=== PATIENT | female | born 1955 | race Caucasian/White ===

== ENCOUNTER 2025-06-18 15:12 | Inpatient (IN) | payer MEDICARE, MEDICAID, SELFPAY ==
[2025-06-18] VITALS (7 sets, daily range): BP systolic 163–188; BP diastolic 69–93; PULSE 87–99; RESP 12–20; TEMP 36.8–38.2; O2SAT 93–100; BMI 29.7
--- NOTE | 2025-06-18 15:22 | EKG_ITS ---
[facility] Test Date: 2025-06-18 Pat Name: KIMBERLEY FULLER Department: Room: - Gender: Female [employer]: : 1955 Requested By: Дмитрий Mejia Order Number: [id number] Reading MD: Дмитрий Mejia Measurements Intervals [place] Rate: 103 P: 49 [place]: 205 QRS: -41 QRSD: 82 T: 56 QT: 356 QTc: 467 Interpretive Statements SINUS TACHYCARDIA LOW QRS VOLTAGE IN PRECORDIAL LEADS [QRS DEFLECTION < 1.0 mV IN CHEST LEADS] POSSIBLE ANTERIOR MYOCARDIAL INFARCTION , PROBABLY OLD [30 ms Q WAVE IN V3/V4, OR R < 0.2 mV IN V4] INFERIOR MYOCARDIAL INFARCTION , PROBABLY OLD [40+ ms Q WAVE AND/OR ST/T ABNORMALITY IN II/aVF] No previous ECG available for comparison /store/S0/[id number].pdf
--- NOTE | 2025-06-18 15:22 | XR_ITS ---
Examination: AP chest single view Technique : AP portable semiupright chest single view Date and time: October 18, 2024, 1558 hrs. Indications: Congestion shortness of breath today. Findings: Early bibasilar pneumonia. Mild prominence left ventricle. Intact osseous structures Impression: Early bibasilar pneumonia.
--- NOTE | 2025-06-18 15:30 | PD.EDADULT ---
ED General RME/HPI General Chief complaint: General Adult/Misc Complain Stated complaint: HIGH BLOOD SUGAR Time Seen by Provider: 06/18/25 15:25 Arrival date/time: 06/18/25 15:12 Mode of arrival: EMS RME / HPI RME / HPI narrative: Mr. 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 Hebert) status post amputation, history of CVA on aspirin and Plavix, chronic constipation, seizures, gout, hyperlipidemia, depression/anxiety and hypertension who presented to [facility] emergency department with a chief complaint of not feeling like herself. Patient reports that she has a feeling that her blood sugar is high and she has been feeling off, patient reports that she has not taken her insulin since yesterday, she was unable to procure insulin from pharmacy. Patient's blood glucose level at bedside in triage area 600 critically high. Patient also was admitted to community also recently was positive for RSV, denies any admissions for DKA in the past. 1750: Patient had seizure episode, witnessed at bedside. Patient given diazepam 10 mg IV x 1 and was given loading dose Keppra. Will monitor postictally. Related Data Home Medications ?Medication ?Instructions ?Recorded ?Confirmed allopurinol 100 mg tablet 100 mg PO TID 06/18/25 06/18/25 aspirin 81 mg capsule 81 mg PO QDAY 06/18/25 06/18/25 calcitriol 0.25 mcg capsule 0.25 mcg PO QDAY 06/18/25 06/18/25 clopidogrel 75 mg tablet (Plavix) 75 mg PO QDAY 06/18/25 06/18/25 empagliflozin 10 mg tablet 10 mg PO QDAY 06/18/25 06/18/25 (Jardiance) ferrous sulfate 325 mg (65 mg 325 mg PO BID 06/18/25 06/18/25 iron) tablet (Feosol) insulin degludec 100 unit/mL (3 26 unit subcut QDAY 06/18/25 06/18/25 mL) subcutaneous pen (Tresiba FlexTouch U-100 insulin) levetiracetam 500 mg tablet 1,000 mg PO BID 06/18/25 06/18/25 (Keppra) levothyroxine 25 mcg capsule 25 mcg PO QDAY 06/18/25 06/18/25 linaclotide 145 mcg capsule 145 mcg PO QAM 06/18/25 06/18/25 linagliptin 5 mg tablet (Tradjenta) 5 mg PO QDAY 06/18/25 06/18/25 losartan 50 mg tablet 50 mg PO QDAY 06/18/25 06/18/25 omega-3 fatty acids 600 mg PO QDAY 06/18/25 06/18/25 pantoprazole 40 mg tablet,delayed 40 mg PO QDAY 06/18/25 06/18/25 release pioglitazone 30 mg tablet 30 mg PO QDAY 06/18/25 06/18/25 sertraline 100 mg tablet 150 mg PO Q24H 06/18/25 06/18/25 trazodone 100 mg tablet 100 mg PO HS 06/18/25 06/18/25 Allergies Allergy/AdvReac Type Severity Reaction Status Date / Time No Known Allergies Allergy Verified 06/18/25 15:27 Review of Systems Review of Systems Narrative Review of Systems: ROS: -CONSTITUTIONAL: Denies weight loss, fever and chills. -HEENT: Denies acute changes in vision and hearing. 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 -RESPIRATORY: Denies SOB and positive for cough. -CV: Denies palpitations and Chest Pain. -GI: Denies abdominal pain, nausea, vomiting,constipation and diarrhea. -: Denies dysuria and urinary frequency. -MSK: Denies myalgia and joint pain. -SKIN: Denies rash and pruritus. -NEUROLOGICAL: Denies headache and syncope. -PSYCHIATRIC: Denies recent changes in mood. Denies anxiety and depression. 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 Hebert) status post amputation, history of CVA on aspirin and Plavix, chronic constipation, seizures, gout, hyperlipidemia, depression/anxiety and hypertension PSHx: Left BKA, hysterectomy, cholecystectomy, appendectomy Allergies: No known allergies Social history: -Smoking: Denies -Alcohol Use: Denies Family History: No pertinent family history ED Exam Narrative Physical exam: Physical Exam General: Awake and in no acute distress. Conversational and non-toxic appearing. HEENT: Normocephalic, atraumatic, mucous membranes moist. Heart: Sinus tachycardia, no murmurs. Lungs: Clear to auscultation with no wheezing or crackles. Abdomen: Soft, nondistended, nontender, positive bowel sounds. ?No guarding or rebound tenderness. Neurologic: Alert and oriented x3, no gross neurological deficit, and patient able to move all 4 extremities. Extremities: No edema. Left BKA noted. Skin: No rash or ecchymoses. Course Quality Measures none Orders Category Date Time Status Bedside Blood Glucose NOW Care 06/18/25 15:34 Active Bedside Blood Glucose Q6HR Care 06/18/25 18:16 Active Bedside COVID-19 Antigen Test NOW Care 06/18/25 16:52 Active Bedside Influenza A&B Antigen Test NOW Care 06/18/25 16:52 Active Envelope Sealer Q4H START 00 Care 06/18/25 15:27 Active EKG (ED ONLY) *Do not use* NOW Care 06/18/25 15:36 Completed Insert IV STAT Care 06/18/25 15:26 Active Intake and Output Routine Care 06/18/25 15:26 Ordered CXRP [XR chest 1V portable] Stat Exams 06/18/25 15:22 Completed EKG (ED Only) Stat Exams 06/18/25 15:36 Ordered A1C [Glycohemoglobin w (eAG)] Stat Lab 06/18/25 15:30 Completed Amylase Stat Lab 06/18/25 15:30 Results BNP [B-Type Natriuretic Peptide] Stat Lab 06/18/25 15:30 Completed Beta Hydroxybutyrate Stat Lab 06/18/25 15:30 Results Blood Culture (Lab) Stat Lab 06/18/25 15:35 Received CBC Stat Lab 06/18/25 15:30 Completed CMP [Comprehensive Metabolic Panel] Stat Lab 06/18/25 15:30 Results Drug Screen,Urine Stat Lab 06/18/25 15:25 Ordered INR [Prothrombin Time with INR] Stat Lab 06/18/25 15:30 Completed Lactate (Lactic Acid) Stat Lab 06/18/25 15:30 Results Lipase Stat Lab 06/18/25 15:30 Results Lipid Panel Stat Lab 06/18/25 15:30 Completed Magnesium Stat Lab 06/18/25 15:30 Completed PTT [Partial Thromboplastin Time] Stat Lab 06/18/25 15:30 Completed Phosphorous Stat Lab 06/18/25 15:30 Completed Procalcitonin Stat Lab 06/18/25 15:30 Completed Troponin I Stat Lab 06/18/25 15:30 Results Urinalysis, C/S if Indicated Stat Lab 06/18/25 15:24 Ordered VBG [Venous Blood Gas] Stat Lab 06/18/25 15:30 Completed Dextrose 50% Syr [D50w Syringe Abboject] Med 06/18/25 18:16 Active 25 ml IV Q15MIN PRN Dextrose 50% Syr [D50w Syringe Abboject] Med 06/18/25 18:16 Active 50 ml IV Q15MIN PRN Diazepam Inj [Valium Inj] Med 06/18/25 17:50 Discontinued 10 mg .ROUTE .STK-MED ONE Diazepam Inj [Valium Inj] Med 06/18/25 17:51 Discontinued 10 mg IVP X1 ONE Glucagon Inj Med 06/18/25 18:16 Active 1 mg IM Q15MIN PRN INSULIN LISPRO (AdmeLOG) [HumaLOG] Med 06/19/25 07:30 Active See Protocol SC AC Pantoprazole Inj [Protonix Inj] Med 06/19/25 09:00 Active 40 mg IVP QDAY Ringers Lactated 1000 ml [Lactated Ringers] 1,000 ml Med 06/18/25 15:28 Discontinued IV 999 mls/hr levETIRAcetam INJ [Keppra Inj] Med 06/18/25 16:05 Active 1,000 mg IVP Q12HR EKG (RT) Stat RT 06/18/25 15:22 Draft Vital Signs Vital signs: Vital Signs Temperature 98.6 F 06/18/25 15:13 Pulse Rate 95 06/18/25 15:13 Respiratory Rate 18 06/18/25 15:13 Blood Pressure 163/75 H 06/18/25 15:13 Pulse Oximetry (%) 96 06/18/25 15:13 Oxygen Delivery Method Room Air 06/18/25 15:13 Discharge Plan Prescriptions/Referrals Prescriptions/Med Rec: No Action levetiracetam [Keppra] 500 mg tablet 1,000 mg PO BID trazodone 100 mg tablet 100 mg PO HS insulin degludec [Tresiba FlexTouch U-100] 100 unit/mL (3 mL) insulin pen 26 unit subcut QDAY Tradjenta 5 mg tablet 5 mg PO QDAY Patient Comments: TAKE 1 TABLET BY MOUTH EVERY DAY aspirin 81 mg capsule 81 mg PO QDAY clopidogrel [Plavix] 75 mg tablet 75 mg PO QDAY linaclotide 145 mcg capsule 145 mcg PO QAM sertraline 100 mg tablet 150 mg PO Q24H Patient Comments: TAKE 2 TABLETS BY MOUTH EVERY DAY pantoprazole 40 mg tablet,delayed release (DR/EC) 40 mg PO QDAY Patient Comments: TAKE 1 TABLET BY MOUTH EVERY DAY calcitriol 0.25 mcg capsule 0.25 mcg PO QDAY Patient Comments: TAKE 1 CAPSULE BY MOUTH EVERY DAY ferrous sulfate [Feosol] 325 mg (65 mg iron) tablet 325 mg PO BID levothyroxine 25 mcg capsule 25 mcg PO QDAY allopurinol 100 mg tablet 100 mg PO TID losartan 50 mg tablet 50 mg PO QDAY omega-3 fatty acids Capsule 600 mg PO QDAY Jardiance 10 mg tablet 10 mg PO QDAY pioglitazone 30 mg tablet 30 mg PO QDAY Referrals: Courtney Leonardo, FURRIER APPRENTICE [Primary Care Provider] - In 1 week Problem List Clinical Impression: Seizure Patient/Caregiver Discharge Instructions Print Language: Scottish MD Attestation MD Attestation I, Dr. Mathur, have reviewed the history, exam, and assessment of the patient. I have evaluated the patient independently and agree with the plan of care documented by the resident Dr. Mejia. All diagnostic studies were reviewed and discussed. I confirm the diagnosis as documented by the resident. I was present during the Medical Decision Making for this patient. The patient?s plan of care was created between myself and the resident and consistent with our discussion of the patient?s case. MDM Narrative MDM hospital course: Patient presented with critically high blood glucose, complained of some dizziness and not feeling like herself. Patient just complains of difficulty ambulating, feeling dizzy, denies any vertigo. Fingerstick blood glucose 600 on presentation, beta hydroxybutyrate unremarkable, beta hydroxybutyrate 0.1, lactic acid elevated at 3.6, triglycerides elevated at 442 patient has moderate hypertriglyceridemia, not on statins at home. Patient will be started on fenofibrate and atorvastatin for management on discharge. Patient signed out to ED physician Dr. Ahmadi for continued ED of care. Clinical Information Provided by patient and EMS Medical Records Reviewed None EKG EKG Interpretation narrative: EKG shows sinus tachycardia, no acute ST-T changes Lab Interpretation Lab(s) interpretation(s): Labs significant for hemoglobin 11.8, lactic acid 3.6, hemoglobin A1c 11.9 triglycerides 442, cholesterol 270. Beta hydroxybutyrate 0.1 Imaging Provider imaging interpretation(s): chest x-ray shows no evidence of pneumonia Medication Administration(s) Medication Administration History Dextrose (Dextrose 50%-Water Inj 50 Ml Syringe) 25 ml IV Q15MIN PRN PRN Reason: BG 50-70 responsive npo pt Stop: 07/18/25 18:15 Dextrose (Dextrose 50%-Water Inj 50 Ml Syringe) 50 ml IV Q15MIN PRN PRN Reason: BG <50 OR BG <70 & pt unresponsive Stop: 07/18/25 18:15 Glucagon (Glucagon Inj 1 Mg Vial) 1 mg IM Q15MIN PRN PRN Reason: BG <70, and no IV access Insulin Human Lispro (Insulin Lispro (Admelog) 1 Unit/0.01 Ml Unit) 0 unit SC AC ERIAK; Protocol Stop: 07/19/25 07:29 Levetiracetam (Levetiracetam Inj 100 Mg/Ml Vial 5ml) 1,000 mg IVP Q12HR ERIKA Stop: 07/18/25 16:04 Last Admin: 06/18/25 17:53 Dose: 1,000 mg Documented By: FABY Pantoprazole Sodium (Pantoprazole Inj 40 Mg Vial) 40 mg IVP QDAY ERIKA Stop: 07/19/25 08:59 Discontinued Medications Diazepam (Diazepam Inj 5 Mg/Ml Vial 2 Ml) 10 mg IVP X1 ONE Stop: 06/18/25 17:52 Last Admin: 06/18/25 17:53 Dose: 10 mg Documented By: FABY Diazepam (Diazepam Inj 5 Mg/Ml Vial 2 Ml) Confirm Administered Dose 10 mg .ROUTE .STK-MED ONE Stop: 06/18/25 17:51 Last Admin: 06/18/25 17:54 Dose: Not Given Documented By: FABY Non-Admin Reason: Duplicate Medication on eMAR Lactated Ringer's (Lactated Ringers) 1,000 mls @ 999 mls/hr IV .Q1H1M ONE Stop: 06/18/25 16:28 Last Infusion: 06/18/25 17:54 Dose: Infused Documented By: Admin: 06/18/25 15:33 Dose: 999 mls/hr Documented By: DB As above Diagnosis Differential diagnosis: High blood glucose, DKA, HHS, seizure episode Differential dx and/or dx ruled out: Pending workup, signed out to ED physician Dr. Ahmadi Dispositon Disposition: other (Signed out to ED physician Dr. Ahmadi)
[2025-06-18] MEDS: RINGERS LACTATED 1000 ML 1,000 ML 999 ML IV (15:33)
[2025-06-18 16:06] LABS: Lactate (Lactic Acid) 3.6 mMol/L (0.4-2.0)
[2025-06-18 16:07] LABS: Base Excess, Venous -6 (-3-3); O2 Saturation, Venous 98 % (96-97); PCO2, Venous 32 mmHg (36-56); PO2, Venous 110 mmHg (15-58); pH, Venous 7.37 (7.33-7.66)
[2025-06-18 16:18] LABS: Basophils # (Auto) 0.0 Thou/mm3 (0.0-0.2); Basophils % (Auto) 0 % (0-2.5); Eosinophils # (Auto) 0.1 Thou/mm3 (0.0-0.5); Eosinophils % (Auto) 1 % (0-10); Hematocrit 34.9 % (36.0-46.0); Hemoglobin 11.8 g/dL (12.0-16.0); Immature Granulocytes Auto 0.04 Thou/mm3 (0.00-0.00); Lymphocytes # (Auto) 2.4 Thou/mm3 (1.0-4.8); Lymphocytes % (Auto) 26 % (10-50); Mean Corpuscular HGB Conc 33.8 g/dl (31.0-37.0); Mean Corpuscular Hemoglobin 30.3 pg (25.0-35.0); Mean Corpuscular Volume 90 fL (80-100); Monocytes # (Auto) 0.4 Thou/mm3 (0.0-0.8); Monocytes % (Auto) 5 % (0-12); Neutrophils # (Auto) 6.3 Thou/mm3 (1.8-7.7); Neutrophils % (Auto) 68 % (37-80); Nucleated Red Blood Cell # 0.00 Thou/mm3 (0.00-0.00); Nucleated Red Blood Cell % 0 /100 WBC (0); Platelet Count 281 Thou/mm3 (140-440); RDW Standard Deviation 43.6 fL (36.4-46.3); Red Blood Count 3.90 Miln/mm3 (4.00-5.20); White Blood Count 9.2 Thou/mm3 (3.6-11.0)
[2025-06-18 16:19] LABS: Beta Hydroxybutyrate 0.1 mmol/L (<0.6)
[2025-06-18 16:27] LABS: Glucose Estimated Average 295 mg/dL (80-131); Hemoglobin A1C 11.9 % Hgb (4.8-6.0)
[2025-06-18 16:30] LABS: INR 0.9 (0.9-1.3); Partial Thromboplastin Time 23.0 Seconds (22.0-36.0); Prothrombin Time 10.3 Seconds (9.0-12.2)
[2025-06-18 16:42] LABS: B-Type Natriuretic Peptide 58 pg/mL (0-100)
[2025-06-18 16:56] LABS: Cardiac Risk Estimate 5.7 RATIO (3.7-5.6); Cholesterol 275 mg/dL (132-200); HDL Cholesterol 48 mg/dL (40-60); Magnesium 1.7 mg/dL (1.6-2.6); Phosphorous 4.0 mg/dL (2.4-5.1); Procalcitonin 0.08 ng/ml (0.0-0.49); Triglycerides 442 mg/dL (30-150)
[2025-06-18] MEDS: DIAZEPAM INJ 5 MG/ML VIAL 2 ML 10 MG IVP (17:53)
[2025-06-18] MEDS: levETIRAcetam INJ 100 MG/ML VIAL 5ML 1000 MG IVP ×2 (17:53→21:35)
--- NOTE | 2025-06-18 18:23 | EDNOTE_ITS ---
Emergency Room Addendum <Alison Levy - Last Filed: 06/18/25 21:57> Addendum Narrative: 1800: Care assumed from Dr. Mathur (emergency physician). Past medical, surgical, social and family history reviewed. Vitals and home medications reviewed. Results and treatment plan discussed. I will assume the care of the patient at this time and will follow the patient, pending labs and final disposition. The following addendum documentation note is intended to reflect any pending information, findings, or radiology results not included in the patient?s initial chart by the previous shift scribe. RADIOLOGY Chest X-Ray: Findings: Early bibasilar pneumonia. Mild prominence left ventricle. Intact osseous structures Impression: Early bibasilar pneumonia. 2157: Hospitalist made aware of the patient?s HPI, PMHx, lab and/or radiology results. Treatment plan was discussed. Will admit for further evaluation and management. Accepts patient for admission. <Tom Moeller DO [place] - Last Filed: 06/18/25 22:01> Addendum Narrative: 1800: Care assumed from Dr. Mathur (emergency physician). Past medical, surgical, social and family history reviewed. Vitals and home medications reviewed. Results and treatment plan discussed. I will assume the care of the patient at this time and will follow the patient, pending labs and final disposition. The following addendum documentation note is intended to reflect any pending information, findings, or radiology results not included in the patient?s initial chart by the previous shift scribe. RADIOLOGY Chest X-Ray: Findings: Early bibasilar pneumonia. Mild prominence left ventricle. Intact osseous structures Impression: Early bibasilar pneumonia. 2157: Hospitalist made aware of the patient?s HPI, PMHx, lab and/or radiology results. Treatment plan was discussed. Will admit for further evaluation and management. Accepts patient for admission. I reevaluated the patient. Patient's lactic acid level is still elevated. Patient had a seizure here in the emergency room prior to being signed out to me. Patient required Valium 10 mg IV as well as Keppra 1000 mg IV. By chest x- ray she has got bilateral lower lobe pneumonia she has had a cough. O2 saturation is 94% on room air. Original lactic acid level was 3.6 and repeat was 2.6. Patient received Rocephin 1 g IV and azithromycin 500 mg p.o. Patient's blood sugar was greater than 600 upon presentation here in the emergency room. Patient was hydrated with a liter of lactated Ringer's and given 14 units of regular insulin IV. Patient is not diabetic ketoacidosis. Blood sugars are now in the 400s. Due to the fact that the patient has bilateral lower lobe pneumonia and is still slightly postictal from her seizure and is having trouble controlling her blood sugars possibly secondary to her infection, I did discuss this case with the hospitalist and the patient will require admission to the hospital for further treatment and evaluation for her seizure, poorly controlled diabetes mellitus, bilateral lower lobe pneumonia.
[2025-06-18] MEDS: INSULIN HUM REGULAR 1 UNIT/0.01 ML (PER UNIT) 14 UNIT IV (18:45)
[2025-06-18 19:02] LABS: Reflex Lactate? Y
[2025-06-18 19:03] LABS: Alanine Aminotransferase 12 U/L (10-49); Albumin, Serum 4.1 gm/dL (3.4-4.8); Albumin/Globulin Ratio 1.6 (1.2-2.2); Alkaline Phosphatase 136 U/L (46-116); Anion Gap 15 (7-16); Aspartate Amino Transferase 10 U/L (0-34); BUN/Creatinine Ratio 10 Ratio (12-20); Bilirubin,Total 0.3 mg/dL (0.3-1.2); Blood Urea Nitrogen 21 mg/dL (9-23); Calcium 9.6 mg/dL (8.3-10.6); Calcium (Corrected) 9.6 mg/dL (8.5-10.1); Carbon Dioxide 18.4 mMol/L (20.0-31.0); Chloride 94 mMol/L (98-107); Creatinine (Component) 2.1 mg/dL (0.6-1.3); Estimated Creatinine Clearance 30.4 mL/min (>60); Globulin 2.6 gm/dL (2.3-3.5); Potassium 4.2 mMol/L (3.4-5.1); Sodium 127 mMol/L (136-145); Total Protein 6.7 gm/dL (5.7-8.2); Troponin I < 0.020 ng/mL (0.0-0.045); eGFR 25 See Note
[2025-06-18 19:23] LABS: Glucose 398 mg/dL (74-106); Osmolality,Calculated 275 (275-295)
[2025-06-18 19:34] LABS: Lactic Acid, 3 HR 2.6 mMol/L (0.4-2.0)
[2025-06-18] MEDS: cefTRIAXone/D5w 1gm IV premix 1 GM/50 ML BAG IV (20:57)
[2025-06-18] MEDS: AZITHROMYCIN 250 MG TABLET 500 MG PO (20:57)
[2025-06-18 22:11] LABS: Lipase 60 U/L (12-53)
--- NOTE | 2025-06-18 22:41 | XR_ITS ---
Examination: CT brain head without contrast. 2-D sagittal coronal reconstructions Date and time of exam:June 18, 2025, 11:04 PM Indications: Altered mental status today CTDI: vol (mGy):50.9 DLP: (mGycm):1000 Technique: Multiple CT axial sections of the brain have been obtained, 5 mm slice thickness. Contrast has not been administered. 2-D sagittal, coronal reconstructions have been obtained Low dose protocols were performed. One or more of the following dose reduction techniques were used; automated exposure control, adjustment of the mA and/or KV according to patient size, use of iterative reconstruction technique. Findings: No significant ventricular enlargement. Encephalomalacia in the right temporal lobe Intra-axial or extra-axial hemorrhage density is not seen. No mass effect or midline shift Basal cisterns are not remarkable. Fourth ventricle is midline. Cranial vault intact. Impression: Negative for acute hemorrhage, mass effect or midline shift Advise clinical correlation follow-up accordingly
[2025-06-18 23:32] LABS: Collection Type, Urine Clean Catch
--- NOTE | 2025-06-18 23:43 | ESHP_ITS ---
Documentation for date of: 06/18/25 [facility] History of Present Illness History of present illness: This is a 70-year-old female with PMHx of IDDM type II, diabetic nephropathy, s/p left BKA, recent CVA 3 months ago on PLAVIX/ASPIRIN with residual bowel and bladder incontinence, seizure disorder post CVA on KEPPRA, hypothyroidism, chronic constipation, CKD 3A v 3B, HTN, HLD, gout, depression/anxiety disorder presenting to ED with confusion. In the ED, initially was being worked up for hyperglycemia with GLUCOSE 600 in triage. However she had a seizure lasting about 2 to 3 minutes. At the time of encounter, patient was postictal, history was limited. However, her sister at bedside assisted. Reportedly, she lives with her daughter at home, and this morning, her sister was driving her to the [employer] and had noticed Poornima was slightly confused, and not making sense, and just didn't look like herself. No immediately drove back home, she was able to walk from the car to the house unassisted. However, she continued to have confusion, and decided to come to the ED. She had a stroke 3 months ago at [facility], currently on PLAVIX and ASPIRIN. Since she had bowel/stool incontinent and chronic constipation. Additionally, she was found to have seizures during her admission and was discharged on KEPPRA which she has been taking daily. No reported seizures since her last hospital discharge. Additionally, she is on INSULIN regimen for IDDM 2, however she had ran out of her INSULIN supply, her last dose was 2 days ago. Denies history of DKA. Never been hospitalized for hypoglycemia to her knowledge. She had RSV about a month ago, and had sustained a chronic dry cough since. She has a history of hypertension, previously was taking multiple medication. However, her PCP recently discontinued her ANTIHYPERTENSIVE as BP has been overall running low. Denies headache, fall or head trauma, fever, chills, visual or auditory disturbances, SOB, productive cough, chest pain, abdominal pain, nausea or vomiting, hematuria or dysuria. Past Medical History: * As above. Past Surgical History: * Left BKA, cholecystectomy, X1. Medications: * INSULIN DEGLUDEC 26 unit q. day, JARDIANCE 10 mg q. day, PIOGLITAZONE 30 mg q. day, TRADJENTA 5 mg q. day, CLOPIDOGREL 75 mg, KEPPRA 500 mg daily, LEVOTHYROXINE 25 mg daily, LINZESS 145 mcg daily, PANTOPRAZOLE 40 mg daily, SERTRALINE 100 mg daily, TRAZODONE 100 mg daily, ALLOPURINOL 300 mg daily. Allergies: * No known allergies. Family History: * History of heart disease in both parents. Social History: * Previously , currently , has 3 children, lives with her sister at home. * Was born in [place], lived in [place] for 30 years. * Currently retired, worked as a schoolteacher. * Denies alcohol, drug or tobacco use. ED Course: * Afebrile, BP 163/75, HR 95, satting well on room air. * Hemoglobin 11.8, WBC 9.2, PLT 281. Normal coag panel. * CHEM panel significant for sodium 127, CO2 18.4, GLUCOSE 398, A1c 11.9, BHB 0.1, creatinine 2.1, GFR 25, BUN 21, lactic acid 3.6 > 2.6, ALP 136, TG 442, cholesterol 275, HDL 48, lipase 60, ambulates pending. Troponin and BNP WNL. * ABG showed pH 7.37, pCO2 32. * UA showed 6 WBC, 1+ bacteria, 1+ blood, GLUCOSE 4+, protein, 2+, negative ketones. * U tox was negative. * CXR showed early bibasilar pneumonia. * EKG shows sinus tachycardia without acute ST changes. QTC 467. * Head CT was negative for acute hemorrhage, mass effect or midline shift. There is right temporal encephalomalacia, possibly from previous stroke. Reason for admission: Seizures, postictal, hypoglycemia, likely ALLYN on CKD. Exam Vital Signs Temp Pulse Resp BP Pulse Ox O2 Del Method O2 Flow Rate 100.7 F H 97 17 163/77 H 98 Room Air 6 06/18/25 21:49 06/18/25 21:49 06/18/25 21:49 06/18/25 21:49 06/18/25 21:49 06/18/25 21:49 06/18/25 19:16 Narrative Exam GENERAL * Well-nourished, slightly confused, answering otherwise appropriately, NAD. HEENT * NCAT.?AMY. Oral mucosa is moist. Patent Nares NECK * Supple, nontender, no JVD. CHEST * RRR, no m/g/r * CTAB, no w/r/r, symmetrical expansion. ABDOMEN * Soft, flat, nontender. No guarding/rebound tenderness/masses. * Bowel sounds presents EXTREMITIES * No edema/cyanosis.? * Left BKA noted. SKIN * Warm and dry, no jaundice/rashes. NEUROMUSCULAR * Moves all 4 extremities well, with full ROM and good CSM. * PATTEN x4, CN II-XII grossly intact. * No focal neurologic deficits. PSYCHIATRY * Normal mood and affect, cooperative, no SI or HI or hallucinations. Results: Labs 06/18/25 15:30 06/19/25 00:48 Labs: Short CBC 06/18/25 Range/Units 15:30 WBC 9.2 (3.6-11.0) Thou/mm3 Hgb 11.8 L (12.0-16.0) g/dL Hct 34.9 L (36.0-46.0) % Plt Count 281 (140-440) Thou/mm3 BMP 06/18/25 15:30 Sodium 127 L Potassium 4.2 Chloride 94 L Carbon Dioxide 18.4 L BUN 21 Creatinine 2.1 H Glucose 398 H Calcium 9.6 Cardiac Enzymes 06/18/25 Range/Units 15:30 Troponin I < 0.020 (0.0-0.045) ng/mL Liver Function 06/18/25 Range/Units 15:30 Total Bilirubin 0.3 (0.3-1.2) mg/dL AST 10 (0-34) U/L ALT 12 (10-49) U/L Alkaline Phosphatase 136 H (46-116) U/L Albumin 4.1 (3.4-4.8) gm/dL ABG Interpretation ABG results: 06/18/25 15:30 VBG pH 7.37 VBG pCO2 32 L VBG pO2 110 H VBG Base Excess -6 L Quality Measures Quality Measures none Advance care planning discussed with:: patient Medications Home Medications and Allergies Home Medications ?Medication ?Instructions ?Recorded ?Confirmed ?Type allopurinol 100 mg tablet 100 mg PO TID 06/18/2506/18 History aspirin 81 mg capsule 81 mg PO QDAY 06/18/2506/18 History calcitriol 0.25 mcg capsule 0.25 mcg PO QDAY 06/18/25 06/18/25 History clopidogrel 75 mg tablet (Plavix) 75 mg PO QDAY 06/18/25 History empagliflozin 10 mg tablet 10 mg PO QDAY 06/18/2505/05 History (Jardiance) ferrous sulfate 325 mg (65 mg 325 mg PO BID 06/18/25 0 06/18/25 History iron) tablet (Feosol) insulin degludec 100 unit/mL (3 26 unit subcut QDAY 06/18/25 History mL) subcutaneous pen (Tresiba FlexTouch U-100 insulin) levetiracetam 500 mg tablet 1,000 mg PO BID 06/18/25 0 06/18/25 History (Keppra) levothyroxine 25 mcg capsule 25 mcg PO QDAY 06/18/25 0 06/18/25 History linaclotide 145 mcg capsule 145 mcg PO QAM 06/18/25 History linagliptin 5 mg tablet (Tradjenta) 5 mg PO QDAY 06/1806/18/25 History losartan 50 mg tablet 50 mg PO QDAY 06/18/2506/18 History omega-3 fatty acids 600 mg PO QDAY 06/18/2505/05 History pantoprazole 40 mg tablet,delayed 40 mg PO QDAY 06/18/25 History release pioglitazone 30 mg tablet 30 mg PO QDAY 06/18/2506/18 History sertraline 100 mg tablet 150 mg PO Q24H 06/18/2505/05 History trazodone 100 mg tablet 100 mg PO HS 06/18/25 History Allergies Allergy/AdvReac Type Severity Reaction Status Date / Time No Known Allergies Allergy Verified 06/18/25 15:27 Visit Medications Acetaminophen (Acetaminophen 325 Mg Tablet) 650 mg PO Q6H PRN PRN Reason: PAIN SCALE 1-3 (mild Stop: 07/18/25 23:28 Acetaminophen (Acetaminophen 325 Mg Tablet) 650 mg PO Q6H PRN PRN Reason: Fever >100.4 Stop: 07/18/25 23:28 Hydrocodone Bitart/Acetaminophen (Hydrocodone/Apap 10/325 Tab) 1 tab PO Q4HR PRN PRN Reason: PAIN SCALE 7-10 (Severe Stop: 06/23/25 23:28 Aspirin (Aspirin Ec 81 Mg Tabec) 81 mg PO X1 ONE Stop: 06/18/25 23:35 Atorvastatin Calcium (Atorvastatin Calcium 20 Mg Tablet) 80 mg PO HS ERIKA Stop: 07/19/25 20:59 Clopidogrel Bisulfate (Clopidogrel Bisulfate 75 Mg Tablet) 75 mg PO QDAY ERIKA Stop: 07/19/25 08:59 Dextrose (Dextrose 50%-Water Inj 50 Ml Syringe) 25 ml IV Q15MIN PRN PRN Reason: BG 50-70 responsive npo pt Stop: 07/18/25 18:15 Dextrose (Dextrose 50%-Water Inj 50 Ml Syringe) 50 ml IV Q15MIN PRN PRN Reason: BG <50 OR BG <70 & pt unresponsive Stop: 07/18/25 18:15 Dextrose (Dextrose 50%-Water Inj 50 Ml Syringe) 25 ml IV Q15MIN PRN PRN Reason: BG 50-70 responsive npo pt Stop: 07/18/25 23:28 Dextrose (Dextrose 50%-Water Inj 50 Ml Syringe) 50 ml IV Q15MIN PRN PRN Reason: BG <50 OR BG <70 & pt unresponsive Stop: 07/18/25 23:28 Glucagon (Glucagon Inj 1 Mg Vial) 1 mg IM Q15MIN PRN PRN Reason: BG <70, and no IV access Glucagon (Glucagon Inj 1 Mg Vial) 1 mg IM Q15MIN PRN PRN Reason: BG <70, and no IV access Heparin Sodium (Porcine) (Heparin Sod Inj 5000 Unit/Ml Vial) 5,000 unit SC BID ERIKA Stop: 07/03/25 08:59 Insulin Degludec (Insulin Degludec 5 Unit/0.05 Ml (Per 5 Units)) 26 unit SC HS [facility] Stop: 07/19/25 20:59 Insulin Human Lispro (Insulin Lispro (Admelog) 1 Unit/0.01 Ml Unit) 0 unit SC AC ERIKA; Protocol Stop: 07/19/25 07:29 Insulin Human Lispro (Insulin Lispro (Admelog) 1 Unit/0.01 Ml Unit) 0 unit SC ACHS [facility]; Protocol Stop: 07/19/25 07:29 Insulin Human Regular (Insulin Hum Regular 1 Unit/0.01 Ml (Per Unit)) 15 unit SC X1 ONE Stop: 06/18/25 23:35 Levetiracetam (Levetiracetam Inj 100 Mg/Ml Vial 5ml) 1,000 mg IVP Q12HR ERIKA Stop: 07/18/25 16:04 Last Admin: 06/18/25 21:35 Dose: 1,000 mg Levetiracetam (Levetiracetam 250 Mg Tablet) 1,000 mg PO BID ERIKA Stop: 07/19/25 08:59 Losartan Potassium (Losartan Potassium 25 Mg Tablet) 50 mg PO QDAY [facility] Stop: 07/19/25 08:59 Non-Formulary Medication (Levothyroxine) 25 mcg PO QDAY [facility] Stop: 07/19/25 08:59 Non-Formulary Medication (Linaclotide) 145 mcg PO QAM [facility] Stop: 07/19/25 08:59 Oxycodone/Acetaminophen (Oxycodone/Apap 5/325 Tablet) 1 tab PO Q6H PRN PRN Reason: PAIN SCALE 4-6 (Moderate Stop: 06/23/25 23:28 Pantoprazole Sodium (Pantoprazole Inj 40 Mg Vial) 40 mg IVP QDAY [facility] Stop: 07/19/25 08:59 Pantoprazole Sodium (Pantoprazole Inj 40 Mg Vial) 40 mg IVP QDAY [facility] Stop: 07/19/25 08:59 Discontinued Medications Azithromycin (Azithromycin 250 Mg Tablet) 500 mg PO X1 ONE Stop: 06/18/25 20:18 Last Admin: 06/18/25 20:57 Dose: 500 mg Diazepam (Diazepam Inj 5 Mg/Ml Vial 2 Ml) 10 mg IVP X1 ONE Stop: 06/18/25 17:52 Last Admin: 06/18/25 17:53 Dose: 10 mg Lactated Ringer's (Lactated Ringers) 1,000 mls @ 999 mls/hr IV .Q1H1M ONE Stop: 06/18/25 16:28 Last Infusion: 06/18/25 17:54 Dose: Infused Ceftriaxone Sodium/Dextrose (Rocephin/D5w 1gm Iv Premix) 1 gm in 50 mls @ 100 mls/hr IV X1 ONE Stop: 06/18/25 20:46 Last Admin: 06/18/25 20:57 Dose: 100 mls/hr Insulin Human Regular (Insulin Hum Regular 1 Unit/0.01 Ml (Per Unit)) 14 unit IV X1 ONE Stop: 06/18/25 18:32 Last Admin: 06/18/25 18:45 Dose: 14 unit Assessment & Plan Plan This is a 70-year-old female with PMHx of IDDM type II, s/p left BKA, recent CVA 3 months ago on PLAVIX/ASPIRIN with residual bowel and bladder incontinence, seizure disorder post CVA on KEPPRA, hypothyroidism, chronic constipation, CKD 3A v 3B, HTN, HLD, gout, depression/anxiety admitted for acute encephalopathy in settings of seizure and mild hyperglycemia. Acute encephalopathy Seizure, postictal Recent CVA 3 months ago Known history of seizure on KEPPRA, secondary to a CVA 3 months ago. Presents with acute altered mental status that occurred this morning, reportedly has confusion. She was hyperglycemic on admission with GLUCOSE 600. Likely acute encephalopathy in settings of seizure as a result of hypoglycemia. She had a witnessed seizure lasting 2 to 3 minutes while in the ED. Low suspicion for stroke, no focal neurological deficits on exam Head CT was negative for acute pathology. Given KEPPRA 1000 mg loading dose in the ED. ? Continue home KEPPRA 1000 mg BID ? Continue PLAVIX 75 mg daily ? Continue ASPIRIN 81 mg daily ? Pending creatinine kinase ? Seizure precaution ? Aspiration precaution ? Physical therapy ? Glycemic control as below Hyperglycemia IDDM type II While in triage, GLUCOSE 600. A1c 11.9. She was given REGULAR INSULIN 14 units IV, GLUCOSE improved to 376. Low suspicion for DKA, gap is 15, bicarb slightly low at 18.4 likely from lactic acidosis, pH 7.37. Given total 2L IVFs. ? Given REGULAR INSULIN 15 units x 1 ? Started DEGLUDEC 26 unit q. day (home dose) ? Started NS maintenance at 100 cc/h (LR unavailable) ? INSULIN sliding scale ? Accu-Cheks q.3h ? Repeat BMP, replete electrolyte as needed (potassium 40 mg X1 given) ALLYN on CKD stage III She has history of CKD stage III, likely diabetic nephropathy. She sees it auditor is Dr. Hebret in [place], previously stated that she may need hemodialysis in future as kidney function is declining. Admission CR 2.1, GFR 25, BUN 21. No baseline renal function on board. ? Renally dose meds, avoid overdiuresis and NEPHROTOXINS ? Daily CMP Mild Hyponatemia Sodium 127. Serum osm normal suggests pseudohyponatremia 2/2 hyper-TG. Other potential causes include hyperglycemia or CKD. ? Continue to monitor Lactic acidosis (resolving) Lactic acid 3.6 > 2.6 likely 2/2 dehydration. Afebrile, no leukocytosis, low suspicion for active infection. ? Continue IVF's as above HTN HLD Hypothyroidism She has previous history of hypertension, however her ANTIHYPERTENSIVE were discontinued as recently as her BP has been on the lower side. On admission BP 163/77, may be reactive. Hypertriglyceridemia likely 2/2 hyperglycemia. ? LABETALOL PRN on board ? Continue home ATORVASTATIN 80 mg daily ? Continue home LEVOTHYROXINE 25 mg daily ? Pending TSH/free T4 Elevated lipase enzyme Lipase 60, and triglyceride 400s may suggest acute pancreatitis, however she is asymptomatic without abdominal pain at this point. ? Pending ambulates ? Continue IVF as above ? May need to increase fluid rate if acute pancreatitis suspected Anxiety and depression ? Continue home SERTRALINE 150 mg q. day ? Holding home TRAZODONE 100 mg HS in settings of acute encephalopathy Bowel/urinary incontinence Chronic constipation ? Continue home LINZESS 145 mcg daily Gout No signs of gout attack. ? Holding ALLOPURINOL in settings of suspected ALLYN Low suspicion for pneumonia CXR showed possible early pneumonia, however she is asymptomatic. She reports chronic dry cough, residual post RSV. Afebrile and no leukocytosis. Received a dose of CEFTRIAXONE and AZITHROMYCIN while in ED. ? Continue to monitor ? Consider ANTIBIOTICS if symptoms persist or worsen Case was discussed with attending physician, Dr. Davila. Viet Sosa, DO PGY II This document was transcribed using voice recognition technology. Minor inaccuracies may be present. Attending Provider Attestation/Addendum After examination of the patient and review of the clinical data I feel that this patient needs admission to the hospital for further treatment/evaluation. Plan of care discussed with patient and her sister at bedside, they are in agreement. I Damaris Davila MD, attest that I was physically present for alvarado portions of evaluation, and examined patient, labs and imagings and plan of care were discussed with IM residents team, and I agree with the findings and plans documented above.
[2025-06-18 23:46] LABS: Amphetamine/Methamp Scrn,U Negative (Negative); Barbiturate Screen,Urine Negative (Negative); Benzodiazepines Screen,Urine Negative (Negative); Benzoylecgonine Screen, Ur Negative (Negative); Fentanyl Screen,Urine Negative (Negative); Opiate Screen,Urine Negative (Negative); THC Screen,Urine Negative (Negative)
[2025-06-18 23:52] LABS: Bacteria,Urine 1+; Bilirubin,Urine Negative (Negative); Blood,Urine 1+ (Negative); Clarity,Urine Clear (Clear/Hazy); Color,Urine Lt-Yellow (Lt Yel-Yel); Culture Indicated,Urine Yes; Glucose, Urine 4+ (Negative); Ketones,Urine Negative (Negative); Leukocyte Esterase,Urine Negative (Negative); Nitrite,Urine Negative (Negative); PH,Urine 5.5 (5.0-7.0); Protein,Urine 2+ (Neg - Trace); RBC,Urine 1 /hpf (0-3); Specific Gravity,Urine 1.021 (1.001-1.035); Squamous Epithelial Cell,Urine 2 /hpf (0-5); Urobilinogen,Urine Negative mg/dL (0.0-1.0); WBC,Urine 6 /hpf (0-5)
[2025-06-18] MEDS: ACETAMINOPHEN 325 MG TABLET 650 MG PO (23:59)
[2025-06-18] MEDS: ASPIRIN EC 81 MG TABEC PO (23:59)
[2025-06-18] MEDS: INSULIN HUM REGULAR 1 UNIT/0.01 ML (PER UNIT) 15 UNIT SC (23:59)
[2025-06-19 01:17] LABS: Anion Gap 13 (7-16); BUN/Creatinine Ratio 14 Ratio (12-20); Blood Urea Nitrogen 22 mg/dL (9-23); Calcium 9.4 mg/dL (8.3-10.6); Carbon Dioxide 21.4 mMol/L (20.0-31.0); Chloride 100 mMol/L (98-107); Creatine Kinase 67 U/L (34-171); Creatinine (Component) 1.6 mg/dL (0.6-1.3); Estimated Creatinine Clearance 39.9 mL/min (>60); Glucose 361 mg/dL (74-106); Osmolality,Calculated 286 (275-295); Potassium 4.1 mMol/L (3.4-5.1); Sodium 134 mMol/L (136-145); eGFR 35 See Note
[2025-06-19 01:42] VITALS: BP 165/88; PULSE 85; RESP 17; TEMP 36.3; O2SAT 98
[2025-06-19] MEDS: SODIUM CHLORIDE 0.9% 1000 ML 1,000 ML 999 ML IV (02:26)
[2025-06-19 04:00] VITALS: BP 147/77; PULSE 71; PULSE 72; RESP 18; TEMP 36.3; O2SAT 98
[2025-06-19 04:16] VITALS: BMI 29.5
[2025-06-19] MEDS: LEVOTHYROXINE SODIUM 25 MCG TABLET GT (05:04)
[2025-06-19] MEDS: SODIUM CHLORIDE 0.9% 1000 ML 1,000 ML 100 ML IV ×2 (05:16→16:54)
[2025-06-19 05:40] LABS: Basophils # (Auto) 0.0 Thou/mm3 (0.0-0.2); Basophils % (Auto) 0 % (0-2.5); Eosinophils # (Auto) 0.1 Thou/mm3 (0.0-0.5); Eosinophils % (Auto) 1 % (0-10); Hematocrit 32.9 % (36.0-46.0); Hemoglobin 11.4 g/dL (12.0-16.0); Immature Granulocytes Auto 0.04 Thou/mm3 (0.00-0.00); Lymphocytes # (Auto) 3.9 Thou/mm3 (1.0-4.8); Lymphocytes % (Auto) 32 % (10-50); Mean Corpuscular HGB Conc 34.7 g/dl (31.0-37.0); Mean Corpuscular Hemoglobin 30.5 pg (25.0-35.0); Mean Corpuscular Volume 88 fL (80-100); Monocytes # (Auto) 0.7 Thou/mm3 (0.0-0.8); Monocytes % (Auto) 6 % (0-12); Neutrophils # (Auto) 7.5 Thou/mm3 (1.8-7.7); Neutrophils % (Auto) 61 % (37-80); Nucleated Red Blood Cell # 0.00 Thou/mm3 (0.00-0.00); Nucleated Red Blood Cell % 0 /100 WBC (0); Platelet Count 237 Thou/mm3 (140-440); RDW Standard Deviation 43.3 fL (36.4-46.3); Red Blood Count 3.74 Miln/mm3 (4.00-5.20); White Blood Count 12.3 Thou/mm3 (3.6-11.0)
[2025-06-19 06:25] LABS: Alanine Aminotransferase 11 U/L (10-49); Albumin, Serum 3.6 gm/dL (3.4-4.8); Albumin/Globulin Ratio 1.4 (1.2-2.2); Alkaline Phosphatase 114 U/L (46-116); Anion Gap 14 (7-16); Aspartate Amino Transferase < 8 U/L (0-34); BUN/Creatinine Ratio 14 Ratio (12-20); Bilirubin,Total 0.3 mg/dL (0.3-1.2); Blood Urea Nitrogen 22 mg/dL (9-23); Calcium 9.4 mg/dL (8.3-10.6); Calcium (Corrected) 9.7 mg/dL (8.5-10.1); Carbon Dioxide 20.7 mMol/L (20.0-31.0); Chloride 102 mMol/L (98-107); Creatinine (Component) 1.6 mg/dL (0.6-1.3); Estimated Creatinine Clearance 47.3 mL/min (>60); Free T4 (Free Thyroxine) 1.41 ng/dL (0.89-1.76); Globulin 2.5 gm/dL (2.3-3.5); Glucose 229 mg/dL (74-106); Magnesium 1.7 mg/dL (1.6-2.6); Osmolality,Calculated 284 (275-295); Phosphorous 2.4 mg/dL (2.4-5.1); Potassium 4.0 mMol/L (3.4-5.1); Sodium 137 mMol/L (136-145); Thyroid Stimulating Hormone 1.16 uIU/mL (0.55-4.78); Total Protein 6.1 gm/dL (5.7-8.2); eGFR 35 See Note
[2025-06-19 08:00] VITALS: BP 142/78; PULSE 63; PULSE 64; RESP 17; TEMP 35.9; O2SAT 91
[2025-06-19 09:01] LABS: Amylase 102 U/L (30-118)
[2025-06-19] MEDS: CLOPIDOGREL BISULFATE 75 MG TABLET PO (09:35)
[2025-06-19] MEDS: SERTRALINE HCL 25 MG TABLET 150 MG PO (09:35)
[2025-06-19] MEDS: ASPIRIN EC 81 MG TABEC PO (09:35)
[2025-06-19] MEDS: HEPARIN SOD INJ 5000 UNIT/ML VIAL SC ×2 (09:36→21:15)
--- NOTE | 2025-06-19 11:29 | PC.SS ---
Patient is alert/oriented. Patient was able to verify demographics. Patient was admitted for seizures. Patient resides with his sister, Elizabet. Patient states he uses a transfer bar to get in and out of bed. No other DME. Patient states she's independent with ADL's. Family provides transportation to appointments. PCP; MALRYN Puga @ [facility]. Last appt. was last month. Patient has an upcoming appt. for GI in July. Pharmacy: [facility]. Patient plans on returning home. alt medical decision maker: SisterElizabet, transportation: family
[2025-06-19] MEDS: AMPICILLIN/SULBAC INJ 1.5 GM in SODIUM CHLORIDE 0.9% (Popper) 50 ML IV (11:46)
[2025-06-19] MEDS: INSULIN LISPRO (AdmeLOG) 1 UNIT/0.01 ML UNIT SC ×2 (11:47→17:30)
[2025-06-19 12:00] VITALS: BP 167/66; PULSE 63; PULSE 70; RESP 18; TEMP 36.9; O2SAT 95
--- NOTE | 2025-06-19 15:28 | ESPR_ITS ---
<Statement entered by Eric Green MD - 06/22/25 14:18> I reviewed above note and agree with findings and plans. I have also personally examined the patient with medicine team and went over assessment and plan with medical team including qa internship and resident physician. <Statement entered by Crow Helm MD - 06/19/25 17:56> No acute overnight events. Seen and examined at bedside and resting comfortably in bed. Neurology consulted and will continue Keppra 1 g twice daily and obtain EEG. Blood sugars continue to remain elevated, restarted home degludec today and will continue to manage with spot glucose checks/lispro administration. Started on ampicillin-sulbactam for aspiration pneumonitis/pneumonia. ----- Note reviewed and agree with care plan as documented. Please refer to the note below for further details. Plan discussed with attending physician Dr. Norma Helm MD PGY-2 Internal Medicine Documentation for date of: 06/19/25 Subjective Subjective Interval history: Glucose trending upward. Patient is slightly hypertensive and hypothermic. She had increased oxygen requirements but she has improved to room air. Will start Unasyn. Neurology consulted. Exam Vital Signs Temp Pulse Resp BP Pulse Ox O2 Del Method O2 Flow Rate 96.6 F L 64 17 142/78 H 91 L Room Air 6 06/19/25 08:00 06/19/25 08:00 06/19/25 08:00 06/19/25 08:00 06/19/25 08:00 06/19/25 08:00 06/18/25 19:16 Narrative Exam General: Awake and in no acute distress. Conversational and non-toxic appearing. Neurologic: GCS 15. Alert and oriented x3, no gross neurological deficit, and patient able to move all 4 extremities. HEENT: Normocephalic, atraumatic, mucous membranes moist. Pupils reactive to light. Heart: Regular rate and rhythm, normal S1 and S2, no murmurs. Lungs: Clear to auscultation bilaterally with no wheezing or crackles. Abdomen: Soft, nondistended, nontender, positive bowel sounds. No guarding or rebound tenderness. Extremities: Left below knee amputation. Scab wound were the end of the limb inserts into the prosthetic with surrounding erythema. The skin is not broken. No edema. 2+ radial and dorsalis pedis pulses in the remaining extremities. Skin: Warm. Dry. No rash or ecchymoses. Objective Labs 06/19/25 04:12 06/19/25 04:12 Labs: Laboratory Results - last 24 hr 06/18/25 06/18/25 06/18/25 15:30 19:28 23:27 WBC 9.2 RBC 3.90 L Hgb 11.8 L Hct 34.9 L MCV 90 MCH 30.3 MCHC 33.8 RDW Std Deviation 43.6 Plt Count 281 Neut % (Auto) 68 Lymph % (Auto) 26 [place] % (Auto) 5 Eos % (Auto) 1 Baso % (Auto) 0 Neut # (Auto) 6.3 Lymph # (Auto) 2.4 [place] # (Auto) 0.4 Eos # (Auto) 0.1 Baso # (Auto) 0.0 Immature Gran # (Auto) 0.04 H Absolute Nucleated RBC 0.00 Immature Gran % 0 Nucleated RBC % 0 PT 10.3 INR 0.9 APTT 23.0 VBG pH 7.37 VBG pCO2 32 L VBG pO2 110 H VBG O2 Sat (Karen) 98 H VBG Base Excess -6 L Sodium 127 L Potassium 4.2 Chloride 94 L Carbon Dioxide 18.4 L Anion Gap 15 BUN 21 Creatinine 2.1 H Estim Creat Clear Calc 30.4 L eGFR 25 L BUN/Creatinine Ratio 10 L Glucose [address] Glu mg/dL 295 H Hemoglobin A1c 11.9 H Calculated Osmolality 275 Lactic Acid 3.6 H 2.6 H Calcium 9.6 Corrected Calcium 9.6 Phosphorus 4.0 Magnesium 1.7 Total Bilirubin 0.3 AST 10 ALT 12 Alkaline Phosphatase 136 H Total Creatine Kinase Troponin I < 0.020 B-Natriuretic Peptide 58 Total Protein 6.7 Albumin 4.1 Globulin 2.6 Albumin/Globulin Ratio 1.6 Triglycerides 442 H Cholesterol 275 H LDL Cholesterol, Calc TNP HDL Cholesterol 48 Cholesterol/HDL Ratio 5.7 H Amylase 102 Lipase 60 H Beta-Hydroxybutyrate/Acetoacetate 0.1 Procalcitonin 0.08 TSH Free T4 Ur Collection Type Clean Catch Urine Color Lt-Yellow Urine Clarity Clear Urine pH 5.5 Ur Specific [place] 1.021 Urine Protein 2+ A Urine Glucose (UA) 4+ A Urine Ketones Negative Urine Blood 1+ A Urine Nitrite Negative Urine Bilirubin Negative Urine Urobilinogen (Auto) Negative Ur Leukocyte Esterase Negative Urine RBC 1 Urine WBC 6 H Ur Squamous Epith Cells 2 Urine Bacteria 1+ A Ur Culture Indicated? Yes Urine Opiates Screen Negative Urine Fentanyl Screen Negative Ur Barbiturates Screen Negative U Amphetamin/Meth Scrn Negative U Benzodiazepines Scrn Negative U Cocaine Metab Screen Negative U Marijuana (THC) Screen Negative 06/19/25 06/19/25 00:48 04:12 WBC 12.3 H RBC 3.74 L Hgb 11.4 L Hct 32.9 L MCV 88 MCH 30.5 MCHC 34.7 RDW Std Deviation 43.3 Plt Count 237 D Neut % (Auto) 61 Lymph % (Auto) 32 [place] % (Auto) 6 Eos % (Auto) 1 Baso % (Auto) 0 Neut # (Auto) 7.5 Lymph # (Auto) 3.9 [place] # (Auto) 0.7 Eos # (Auto) 0.1 Baso # (Auto) 0.0 Immature Gran # (Auto) 0.04 H Absolute Nucleated RBC 0.00 Immature Gran % 0 Nucleated RBC % 0 PT INR APTT VBG pH VBG pCO2 VBG pO2 VBG O2 Sat (Karen) VBG Base Excess Sodium 134 L 137 Potassium 4.1 4.0 Chloride 100 102 Carbon Dioxide 21.4 20.7 Anion Gap 13 14 BUN 22 22 Creatinine 1.6 H D 1.6 H Estim Creat Clear Calc 39.9 L 47.3 L eGFR 35 L 35 L BUN/Creatinine Ratio 14 14 Glucose [address] Glu mg/dL Hemoglobin A1c Calculated Osmolality 286 284 Lactic Acid Calcium 9.4 9.4 Corrected Calcium 9.7 Phosphorus 2.4 Magnesium 1.7 Total Bilirubin 0.3 AST < 8 ALT 11 Alkaline Phosphatase 114 D Total Creatine Kinase 67 Troponin I B-Natriuretic Peptide Total Protein 6.1 Albumin 3.6 D Globulin 2.5 Albumin/Globulin Ratio 1.4 Triglycerides Cholesterol LDL Cholesterol, Calc HDL Cholesterol Cholesterol/HDL Ratio Amylase Lipase Beta-Hydroxybutyrate/Acetoacetate Procalcitonin TSH 1.16 Free T4 1.41 Ur Collection Type Urine Color Urine Clarity Urine pH Ur Specific [place] Urine Protein Urine Glucose (UA) Urine Ketones Urine Blood Urine Nitrite Urine Bilirubin Urine Urobilinogen (Auto) Ur Leukocyte Esterase Urine RBC Urine WBC Ur Squamous Epith Cells Urine Bacteria Ur Culture Indicated? Urine Opiates Screen Urine Fentanyl Screen Ur Barbiturates Screen U Amphetamin/Meth Scrn U Benzodiazepines Scrn U Cocaine Metab Screen U Marijuana (THC) Screen ABG Interpretation ABG results: 06/18/25 15:30 VBG pH 7.37 VBG pCO2 32 L VBG pO2 110 H VBG Base Excess -6 L Quality Measures Quality Measures none Advance care planning discussed with:: patient Assessment & Plan Assessment Current Active Medications: Generic Name Dose Route Start Last Admin Trade Name Freq PRN Reason Stop Dose Admin Acetaminophen 650 mg 06/18/25 23:29 Acetaminophen 325 Mg Tablet PO 07/18/25 23:28 Q6H PRN PAIN SCALE 1-3 (mild Acetaminophen 650 mg 06/18/25 23:29 06/18/25 23:59 Acetaminophen 325 Mg Tablet PO 07/18/25 23:28 650 mg Q6H PRN Administration Fever >100.4 Hydrocodone Bitart/Acetaminophen 1 tab 06/18/25 23:29 Hydrocodone/Apap 10/325 Tab PO 06/23/25 23:28 Q4HR PRN PAIN SCALE 7-10 (Severe Aspirin 81 mg 06/19/25 09:00 06/19/25 09:35 Aspirin Ec 81 Mg Tabec PO 07/19/25 08:59 81 mg QDAY ERIKA Administration Atorvastatin Calcium 80 mg 06/19/25 21:00 Atorvastatin Calcium 20 Mg Tablet PO 07/19/25 20:59 HS ERIKA Clopidogrel Bisulfate 75 mg 06/19/25 09:00 06/19/25 09:35 Clopidogrel Bisulfate 75 Mg Tablet PO 07/19/25 08:59 75 mg QDAY ERIKA Administration Dextrose 25 ml 06/18/25 23:29 Dextrose 50%-Water Inj 50 Ml Syringe IV 07/18/25 23:28 Q15MIN PRN BG 50-70 responsive npo pt Dextrose 50 ml 06/18/25 23:29 Dextrose 50%-Water Inj 50 Ml Syringe IV 07/18/25 23:28 Q15MIN PRN BG <50 OR BG <70 & pt unresponsive Glucagon 1 mg 06/18/25 23:29 Glucagon Inj 1 Mg Vial IM Q15MIN PRN BG <70, and no IV access Heparin Sodium (Porcine) 5,000 unit 06/19/25 09:00 06/19/25 09:36 Heparin Sod Inj 5000 Unit/Ml Vial SC 07/03/25 08:59 5,000 unit BID ERIKA Administration Sodium Chloride 1,000 mls @ 100 mls/hr 06/19/25 02:00 06/19/25 05:16 Ns IV 07/19/25 01:59 100 mls/hr .Q10H ERIKA Administration Ampicillin Sodium/Sulbactam 50 mls @ 100 mls/hr 06/19/25 12:00 06/19/25 11:46 Sodium 1.5 gm/ Sodium Chloride IV 06/26/25 11:59 100 mls/hr Q6HR ERIKA Administration Insulin Degludec 26 unit 06/19/25 21:00 Insulin Degludec 5 Unit/0.05 Ml (Per 5 Units) SC 07/19/25 20:59 HS ERIKA Insulin Human Lispro 0 unit 06/19/25 07:30 06/19/25 11:47 Insulin Lispro (Admelog) 1 Unit/0.01 Ml Unit SC 07/19/25 07:29 3 unit ACHS ERIKA Administration Protocol Labetalol HCl 10 mg 06/19/25 00:43 Labetalol Inj 5 Mg/Ml Vial 20 Ml IVP 07/19/25 00:42 Q2H PRN SBP>170 Levetiracetam 1,000 mg 06/19/25 09:00 06/19/25 09:35 Levetiracetam 250 Mg Tablet PO 07/19/25 08:59 1,000 mg BID ERIKA Administration Levothyroxine Sodium 25 mcg 06/19/25 06:00 06/19/25 05:04 Levothyroxine Sodium 25 Mcg Tablet GT 07/19/25 05:59 25 mcg ACBR ERIKA Administration Non-Formulary Medication 145 mcg 06/19/25 09:00 Linaclotide PO 07/19/25 08:59 QAM ERIKA Oxycodone/Acetaminophen 1 tab 06/18/25 23:29 Oxycodone/Apap 5/325 Tablet PO 06/23/25 23:28 Q6H PRN PAIN SCALE 4-6 (Moderate Pantoprazole Sodium 40 mg 06/19/25 09:00 06/19/25 09:36 Pantoprazole Inj 40 Mg Vial IVP 07/19/25 08:59 40 mg QDAY ERIKA Administration Sertraline HCl 150 mg 06/19/25 09:00 06/19/25 09:35 Sertraline Hcl 25 Mg Tablet PO 07/19/25 08:59 150 mg QDAY ERIKA Administration Plan Summary: 68-year-old woman with a past medical history of insulin-dependent type 2 diabetes, diabetic nephropathy, status post left below-knee amputation, CVA 3 months ago on aspirin and Plavix, residual bowel and bladder incontinence, hypothyroidism, chronic constipation, CKD stage IIIa versus 3B, hypertension, hyperlipidemia, gout, depression and anxiety, and seizure disorder on Keppra who presented to the ED on 06/19/2025 with confusion. She was hyperglycemic on arrival with a glucose of 600 and had a seizure lasting about 2 to 3 minutes in the ED. She was given a loading dose of 1000 mg Keppra in the ED and admitted for her seizure. #Acute encephalopathy due to seizure versus breakthrough seizure versus CVA versus hyperglycemia * Patient had a CVA 3 months ago, was told that she had 3 seizures at the time and had never had seizures before * She mentions that she was discharged on Keppra at the time to take twice a day * The morning of the day of presentation to the ED, the patient did not take her Keppra medication, likely leading to the seizure in the ED * Acute encephalopathy secondary to breakthrough seizure, versus CVA, versus hyperglycemia are all less likely due to the patient missing her medication * Head CT was negative for any acute hemorrhage or infarction, there was encephalomalacia in the right temporal lobe * Creatinine kinase 67, not elevated Plan: * Continue Keppra 1000 mg twice daily * Continue Plavix 75 mg daily * Continue aspirin 81 mg daily * Seizure precautions * Aspiration precautions * Neurology consult * PT consult #Hyperglycemia #Insulin-dependent type 2 diabetes #Lactic acidosis * Glucose on arrival was 600, trended down to 170, back up to 324 * A1c 11.9 * Was given 14 units of regular insulin, glucose improved to 376 * Anion gap of 15, pH 7.37, lactic acid 3.6 down trended to 2.6, patient was given 2 L of fluids, low suspicion for DKA Plan: * Will continue sliding scale insulin * Will administer 10 units of lispro outside of sliding scale due to elevated glucose * Degludec insulin 26 units morning of 06/20/2025 #Acute hypoxic respiratory failure secondary to aspiration pneumonia versus postictal state * Patient had increased oxygen demand * CXR showed possible early pneumonia * She reports chronic dry cough, residual post RSV. Afebrile and no leukocytosis. * Received a dose of CEFTRIAXONE and AZITHROMYCIN while in ED. Plan: * Started Unasyn 3 gm IV every 6 hours on 06/19/2025 #ALLYN on CKD stage III * Patient is a history of CKD stage III, consider diabetic nephropathy * She sees helicopter specialist is Dr. Hebert in [place], previously stated that she may need hemodialysis in future as kidney function is declining. Admission CR 2.1, GFR 25, BUN 21. No baseline renal function on board. * Creatinine stable at 1.6, eGFR 47.3, increased from 39.9 on admission. Plan: * Renally dose meds, avoid overdiuresis and NEPHROTOXINS * Daily CMP #HTN #HLD #Hypothyroidism * She has previous history of hypertension, however her ANTIHYPERTENSIVE were discontinued as recently as her BP has been on the lower side. On admission BP 163/77, may be reactive. Hypertriglyceridemia likely 2/2 hyperglycemia. * TSH 1.16 * Free T4 1.41 Plan: * LABETALOL PRN on board * Continue home ATORVASTATIN 80 mg daily * Continue home LEVOTHYROXINE 25 mg daily * Pending TSH/free T4 #Elevated lipase enzyme * Lipase 60, and triglyceride 400s may suggest acute pancreatitis, however she is asymptomatic without abdominal pain at this point. Plan: * Pending ambulates * Continue IVF as above * May need to increase fluid rate if acute pancreatitis suspected #History of Anxiety and depression Plan: * Continue home SERTRALINE 150 mg q. day * Holding home TRAZODONE 100 mg HS in settings of acute encephalopathy #Bowel/urinary incontinence #Chronic constipation Plan: * Continue home LINZESS 145 mcg daily #Gout * No signs of gout attack. Plan: * Holding ALLOPURINOL in settings of suspected ALLYN #Mild Hyponatemia (Resolved) Hospital Maintenance: DVT ppx: Subcu heparin 5000 units twice daily Diet: Low-carb IV lines: Peripheral IVs Code status: Full code Dispo: Admitted with seizure precautions. Neurology consulted. Will continue Keppra and start Unasyn. Patient was seen and discussed with my attending physician Dr. Norma ALANIZ and my senior resident Dr. Volodymyr ALANIZ PGY-2. Vik Baptiste DO PGY-1.
[2025-06-19 16:00] VITALS: BP 148/63; PULSE 64; PULSE 70; RESP 12; TEMP 36.6; O2SAT 93
[2025-06-19] MEDS: INSULIN LISPRO (AdmeLOG) 1 UNIT/0.01 ML UNIT 10 UNIT SC (16:47)
[2025-06-19] MEDS: INSULIN DEGLUDEC 5 UNIT/0.05 ML (PER 5 UNITS) 10 UNIT SC (16:50)
--- NOTE | 2025-06-19 16:59 | PC.PT ---
PT eval only. Patient was xI with bed mobility, transfers, and ambulation. Patient is safe to ambulate to the bathroom and in the halls with 1 staff for safety with donning her prosthetic. RN made aware.
--- NOTE | 2025-06-19 17:08 | PD.RESCONSUL ---
HPI Data of Consult Requesting Physician: Eric Green MD Admitting Provider: Damaris Davila MD Attending Provider: Eric Green MD Primary Care Provider: Courtney Leonardo NP Consult Narrative Reason for consult: AMS History of present illness: This is a 70-year-old female with PMHx of IDDM type II, diabetic nephropathy, s/p left BKA, recent CVA 3 months ago on PLAVIX/ASPIRIN with residual bowel and bladder incontinence, seizure disorder post CVA on KEPPRA, hypothyroidism, chronic constipation, CKD 3A v 3B, HTN, HLD, gout, depression/anxiety disorder presenting to ED with confusion.In the ED, initially was being worked up for hyperglycemia with GLUCOSE 600 in triage. However she had a seizure lasting about 2 to 3 minutes. At the time of encounter, patient was postictal, history was limited. However, her sister at bedside assisted.Reportedly, she lives with her daughter at home, and this morning, her sister was driving her to the [employer] and had noticed Poornima was slightly confused, and not making sense, and just didn't look like herself. No immediately drove back home, she was able to walk from the car to the house unassisted. However, she continued to have confusion, and decided to come to the ED.She had a stroke 3 months ago at [facility], currently on PLAVIX and ASPIRIN. Since she had bowel/stool incontinent and chronic constipation. Additionally, she was found to have seizures during her admission and was discharged on KEPPRA which she has been taking daily. No reported seizures since her last hospital discharge.Additionally, she is on INSULIN regimen for IDDM 2, however she had ran out of her INSULIN supply, her last dose was 2 days ago. Denies history of DKA. Never been hospitalized for hypoglycemia to her knowledge.She had RSV about a month ago, and had sustained a chronic dry cough since.She has a history of hypertension, previously was taking multiple medication. However, her PCP recently discontinued her ANTIHYPERTENSIVE as BP has been overall running low.Denies headache, fall or head trauma, fever, chills, visual or auditory disturbances, SOB, productive cough, chest pain, abdominal pain, nausea or vomiting, hematuria or dysuria.ED Course: Afebrile, BP 163/75, HR 95, satting well on room air. Hemoglobin 11.8, WBC 9.2, PLT 281. Normal coag panel. CHEM panel significant for sodium 127, CO2 18.4, GLUCOSE 398, A1c 11.9, BHB 0.1, creatinine 2.1, GFR 25, BUN 21, lactic acid 3.6 > 2.6, ALP 136, TG 442, cholesterol 275, HDL 48, lipase 60, ambulates pending. Troponin and BNP WNL. ABG showed pH 7.37, pCO2 32. UA showed 6 WBC, 1+ bacteria, 1+ blood, GLUCOSE 4+, protein, 2+, negative ketones.U tox was negative.CXR showed early bibasilar pneumonia.EKG shows sinus tachycardia without acute ST changes. QTC 467.Head CT was negative for acute hemorrhage, mass effect or midline shift. There is right temporal encephalomalacia, possibly from previous stroke. Past Medical History:As above. Past Surgical History: Left BKA, cholecystectomy, X1. Allergies:No known allergies. Family History:History of heart disease in both parents. Social History:Previously , currently , has 3 children, lives with her sister at home.Was born in [place], lived in [place] for 30 years.Currently retired, worked as a schoolteacher.Denies alcohol, drug or tobacco use. Medications: INSULIN DEGLUDEC 26 unit q. day, JARDIANCE 10 mg q. day, PIOGLITAZONE 30 mg q. day, TRADJENTA 5 mg q. day, CLOPIDOGREL 75 mg, KEPPRA 500 mg daily, LEVOTHYROXINE 25 mg daily, LINZESS 145 mcg daily, PANTOPRAZOLE 40 mg daily, SERTRALINE 100 mg daily, TRAZODONE 100 mg daily, ALLOPURINOL 300 mg daily. 06/19/25: Patient was seen and examined at the bedside. Patient's sister was also present at bedside and she reported that patient was confused a day ago when she fell on the floor but denied hitting her head. She has been sleeping more than usual. Patient's sister noted that she was not making sense when she was asking any question. She has a history of stroke in December 2024 and was admitted at [facility] where they performed an brain MRI which showed acute infarct and additionally, EEG which was abnormal consistent with seizures. Apparently, patient reported that she has not noticed any seizure-like activity in the past but she has been taking Keppra with compliance. Patient was alert and oriented x 3 during assessment and she stated that she does not not remember confusion noticed by her sister 1 day ago. Labs showed elevated white count 12.3, hemoglobin stable. Kidney function elevated from the baseline with BUN 21 creatinine 1.6, baseline 0.9 2024. Patient's blood sugar was elevated on admission and currently at 229. Patient's acute encephalopathy could be related to marked hyperglycemia and blood infection. Recommended EEG awake and drowsy to evaluate further. Recommended to continue same dose of Keppra. cc:: cc: Eric Green MD Review of Systems Review of Systems Systems Reviewed: All systems reviewed, normal except as documented Past Medical History Past Medical History Comments PMH COMMENT: PMH: Positive for insulin-dependent diabetes mellitus type II with complications diabetic nephropathy (follows Dr. Hebert) status post amputation, history of CVA on aspirin and Plavix, chronic constipation, seizures, gout, hyperlipidemia, depression/anxiety and hypertension PSHx: Left BKA, hysterectomy, cholecystectomy, appendectomy Allergies: No known allergies Social history: -Smoking: Denies -Alcohol Use: Denies Family History: No pertinent family history Exam Vital Signs Temp Pulse Resp BP Pulse Ox O2 Del Method O2 Flow Rate 96.6 F L 64 17 142/78 H 91 L Room Air 6 06/19/25 08:00 06/19/25 08:00 06/19/25 08:00 06/19/25 08:00 06/19/25 08:00 06/19/25 08:00 06/18/25 19:16 Narrative Exam GENERAL APPEARANCE: AxOx4, generally well-appearing female in no acute distress. HEENT: NC, AT. Dry mucous membrane. EOMI, clear conjunctiva, oropharynx clear. NECK: Supple without lymphadenopathy. No stiffness or restricted ROM. HEART: Regular rate and regular rhythm, normal S1/S2, no m/r/g LUNGS: CTAB, moving air well. No crackles or wheezes are heard. ABDOMEN: Soft, nontender, nondistended with good bowel sounds heard. BACK: No CVAT, no obvious deformity. EXTREMITIES: Without cyanosis, clubbing or edema. NEUROLOGICAL: Grossly nonfocal. Alert and oriented x 3. CN not formally tested but appear grossly intact. Left BKA with prosthesis. Upper extremity and right lower extremity power 5/ 5 with intact sensory system. Skin: Warm and dry without any rash. Psych: Appropriate mood and affect Results Labs 06/20/25 04:43 06/20/25 04:43 Labs: Short CBC 06/19/25 Range/Units 04:12 WBC 12.3 H (3.6-11.0) Thou/mm3 Hgb 11.4 L (12.0-16.0) g/dL Hct 32.9 L (36.0-46.0) % Plt Count 237 D (140-440) Thou/mm3 BMP 06/18/25 06/19/25 06/19/25 15:30 00:48 04:12 Sodium 127 L 134 L 137 Potassium 4.2 4.1 4.0 Chloride 94 L 100 102 Carbon Dioxide 18.4 L 21.4 20.7 BUN 21 22 22 Creatinine 2.1 H 1.6 H D 1.6 H Glucose 398 H 361 H 229 H D Calcium 9.6 9.4 9.4 Cardiac Enzymes 06/18/25 06/19/25 Range/Units 15:30 00:48 Total Creatine Kinase 67 (34-171) U/L Troponin I < 0.020 (0.0-0.045) ng/mL Liver Function 06/18/25 06/19/25 Range/Units 15:30 04:12 Total Bilirubin 0.3 0.3 (0.3-1.2) mg/dL AST 10 < 8 (0-34) U/L ALT 12 11 (10-49) U/L Alkaline Phosphatase 136 H 114 D (46-116) U/L Albumin 4.1 3.6 D (3.4-4.8) gm/dL Urine 06/18/25 Range/Units 23:27 Urine Color Lt-Yellow (Lt Yel-Yel) Urine Clarity Clear (Clear/Hazy) Urine pH 5.5 (5.0-7.0) Ur Specific Marcy 1.021 (1.001-1.035) Urine Protein 2+ A (Neg - Trace) Urine Glucose (UA) 4+ A (Negative) ABG Interpretation ABG results: 06/18/25 15:30 VBG pH 7.37 VBG pCO2 32 L VBG pO2 110 H VBG Base Excess -6 L Quality Measures Quality Measures VTE prophylaxis (Heparin subcut) Advance care planning discussed with:: patient Medications Home Medications and Allergies Home Medications ?Medication ?Instructions ?Recorded ?Confirmed ?Type allopurinol 100 mg tablet 100 mg PO TID 06/18/25 06/18/25 History aspirin 81 mg capsule 81 mg PO QDAY 06/18/25 06/18/25 History calcitriol 0.25 mcg capsule 0.25 mcg PO QDAY 06/18/25 06/18/25 History clopidogrel 75 mg tablet (Plavix) 75 mg PO QDAY 06/18/25 06/18/25 History empagliflozin 10 mg tablet 10 mg PO QDAY 06/18/25 06/18/25 History (Jardiance) ferrous sulfate 325 mg (65 mg 325 mg PO BID 06/18/25 06/18/25 History iron) tablet (Feosol) insulin degludec 100 unit/mL (3 26 unit subcut QDAY 06/18/25 06/18/25 History mL) subcutaneous pen (Tresiba FlexTouch U-100 insulin) levetiracetam 500 mg tablet 1,000 mg PO BID 06/18/25 06/18/25 History (Keppra) levothyroxine 25 mcg capsule 25 mcg PO QDAY 06/18/25 06/18/25 History linaclotide 145 mcg capsule 145 mcg PO QAM 06/18/25 06/18/25 History linagliptin 5 mg tablet (Tradjenta) 5 mg PO QDAY 06/18/25 06/18/25 History losartan 50 mg tablet 50 mg PO QDAY 06/18/25 06/18/25 History omega-3 fatty acids 600 mg PO QDAY 06/18/25 06/18/25 History pantoprazole 40 mg tablet,delayed 40 mg PO QDAY 06/18/25 06/18/25 History release pioglitazone 30 mg tablet 30 mg PO QDAY 06/18/25 06/18/25 History sertraline 100 mg tablet 150 mg PO Q24H 06/18/25 06/18/25 History trazodone 100 mg tablet 100 mg PO HS 06/18/25 06/18/25 History Allergies Allergy/AdvReac Type Severity Reaction Status Date / Time No Known Allergies Allergy Verified 06/18/25 15:27 Visit Medications Acetaminophen (Acetaminophen 325 Mg Tablet) 650 mg PO Q6H PRN PRN Reason: PAIN SCALE 1-3 (mild Stop: 07/18/25 23:28 Acetaminophen (Acetaminophen 325 Mg Tablet) 650 mg PO Q6H PRN PRN Reason: Fever >100.4 Stop: 07/18/25 23:28 Last Admin: 06/18/25 23:59 Dose: 650 mg Hydrocodone Bitart/Acetaminophen (Hydrocodone/Apap 10/325 Tab) 1 tab PO Q4HR PRN PRN Reason: PAIN SCALE 7-10 (Severe Stop: 06/23/25 23:28 Aspirin (Aspirin Ec 81 Mg Tabec) 81 mg PO QDAY ERIKA Stop: 07/19/25 08:59 Last Admin: 06/19/25 09:35 Dose: 81 mg Atorvastatin Calcium (Atorvastatin Calcium 20 Mg Tablet) 80 mg PO HS [facility] Stop: 07/19/25 20:59 Clopidogrel Bisulfate (Clopidogrel Bisulfate 75 Mg Tablet) 75 mg PO QDAY ERIKA Stop: 07/19/25 08:59 Last Admin: 06/19/25 09:35 Dose: 75 mg Dextrose (Dextrose 50%-Water Inj 50 Ml Syringe) 50 ml IV Q15MIN PRN PRN Reason: BG <50 OR BG <70 & pt unresponsive Stop: 07/18/25 23:28 Glucagon (Glucagon Inj 1 Mg Vial) 1 mg IM Q15MIN PRN PRN Reason: BG <70, and no IV access Heparin Sodium (Porcine) (Heparin Sod Inj 5000 Unit/Ml Vial) 5,000 unit SC BID ERIKA Stop: 07/03/25 08:59 Last Admin: 06/19/25 09:36 Dose: 5,000 unit Sodium Chloride (Ns) 1,000 mls @ 100 mls/hr IV .Q10H ERIKA Stop: 07/19/25 01:59 Last Admin: 06/19/25 16:54 Dose: 100 mls/hr Ampicillin Sodium/Sulbactam (Sodium 3 gm/ Sodium Chloride) 50 mls @ 100 mls/hr IV Q6HR ERIKA Stop: 06/26/25 17:59 Insulin Degludec (Insulin Degludec 5 Unit/0.05 Ml (Per 5 Units)) 15 unit SC X1 ONE Stop: 06/19/25 21:01 Insulin Degludec (Insulin Degludec 5 Unit/0.05 Ml (Per 5 Units)) 26 unit SC HS ERIKA Stop: 07/20/25 20:59 Insulin Human Lispro (Insulin Lispro (Admelog) 1 Unit/0.01 Ml Unit) 0 unit SC AC [facility]; Protocol Stop: 07/19/25 16:59 Labetalol HCl (Labetalol Inj 5 Mg/Ml Vial 20 Ml) 10 mg IVP Q2H PRN PRN Reason: SBP>170 Stop: 07/19/25 00:42 Levetiracetam (Levetiracetam 250 Mg Tablet) 1,000 mg PO BID [facility] Stop: 07/19/25 08:59 Last Admin: 06/19/25 09:35 Dose: 1,000 mg Levothyroxine Sodium (Levothyroxine Sodium 25 Mcg Tablet) 25 mcg GT ACBR [facility] Stop: 07/19/25 05:59 Last Admin: 06/19/25 05:04 Dose: 25 mcg Non-Formulary Medication (Linaclotide) 145 mcg PO QAM [facility] Stop: 07/19/25 08:59 Oxycodone/Acetaminophen (Oxycodone/Apap 5/325 Tablet) 1 tab PO Q6H PRN PRN Reason: PAIN SCALE 4-6 (Moderate Stop: 06/23/25 23:28 Pantoprazole Sodium (Pantoprazole Inj 40 Mg Vial) 40 mg IVP QDAY [facility] Stop: 07/19/25 08:59 Last Admin: 06/19/25 09:36 Dose: 40 mg Sertraline HCl (Sertraline Hcl 25 Mg Tablet) 150 mg PO QDAY [facility] Stop: 07/19/25 08:59 Last Admin: 06/19/25 09:35 Dose: 150 mg Discontinued Medications Aspirin (Aspirin Ec 81 Mg Tabec) 81 mg PO X1 ONE Stop: 06/18/25 23:35 Last Admin: 06/18/25 23:59 Dose: 81 mg Azithromycin (Azithromycin 250 Mg Tablet) 500 mg PO X1 ONE Stop: 06/18/25 20:18 Last Admin: 06/18/25 20:57 Dose: 500 mg Dextrose (Dextrose 50%-Water Inj 50 Ml Syringe) 25 ml IV Q15MIN PRN PRN Reason: BG 50-70 responsive npo pt Stop: 07/18/25 18:15 Dextrose (Dextrose 50%-Water Inj 50 Ml Syringe) 50 ml IV Q15MIN PRN PRN Reason: BG <50 OR BG <70 & pt unresponsive Stop: 07/18/25 18:15 Dextrose (Dextrose 50%-Water Inj 50 Ml Syringe) 25 ml IV Q15MIN PRN PRN Reason: BG 50-70 responsive npo pt Stop: 07/18/25 23:28 Diazepam (Diazepam Inj 5 Mg/Ml Vial 2 Ml) 10 mg IVP X1 ONE Stop: 06/18/25 17:52 Last Admin: 06/18/25 17:53 Dose: 10 mg Glucagon (Glucagon Inj 1 Mg Vial) 1 mg IM Q15MIN PRN PRN Reason: BG <70, and no IV access Lactated Ringer's (Lactated Ringers) 1,000 mls @ 999 mls/hr IV .Q1H1M ONE Stop: 06/18/25 16:28 Last Infusion: 06/18/25 17:54 Dose: Infused Ceftriaxone Sodium/Dextrose (Rocephin/D5w 1gm Iv Premix) 1 gm in 50 mls @ 100 mls/hr IV X1 ONE Stop: 06/18/25 20:46 Last Infusion: 06/18/25 21:27 Dose: Infused Lactated Ringer's (Lactated Ringers) 1,000 mls @ 999 mls/hr IV .Q1H1M ONE Stop: 06/19/25 01:39 Lactated Ringer's (Lactated Ringers) 1,000 mls @ 80 mls/hr IV .[id number] ERIKA Stop: 06/19/25 13:09 Sodium Chloride (Ns) 1,000 mls @ 999 mls/hr IV .Q1H1M ONE Stop: 06/19/25 02:50 Last Admin: 06/19/25 02:26 Dose: 999 mls/hr Ampicillin Sodium/Sulbactam (Sodium 1.5 gm/ Sodium Chloride) 50 mls @ 100 mls/hr IV Q6HR ERIKA Stop: 06/26/25 11:59 Last Admin: 06/19/25 11:46 Dose: 100 mls/hr Insulin Degludec (Insulin Degludec 5 Unit/0.05 Ml (Per 5 Units)) 26 unit SC HS ERIKA Stop: 07/19/25 20:59 Insulin Degludec (Insulin Degludec 5 Unit/0.05 Ml (Per 5 Units)) 10 unit SC X1 ONE Stop: 06/19/25 16:06 Last Admin: 06/19/25 16:50 Dose: 10 unit Insulin Human Lispro (Insulin Lispro (Admelog) 1 Unit/0.01 Ml Unit) 0 unit SC AC [facility]; Protocol Stop: 07/19/25 07:29 Insulin Human Lispro (Insulin Lispro (Admelog) 1 Unit/0.01 Ml Unit) 0 unit SC [facility]CHS ERIKA; Protocol Stop: 07/19/25 07:29 Last Admin: 06/19/25 11:47 Dose: 3 unit Insulin Human Lispro (Insulin Lispro (Admelog) 1 Unit/0.01 Ml Unit) 10 unit SC X1 ONE Stop: 06/19/25 16:09 Last Admin: 06/19/25 16:47 Dose: 10 unit Insulin Human Regular (Insulin Hum Regular 1 Unit/0.01 Ml (Per Unit)) 14 unit IV X1 ONE Stop: 06/18/25 18:32 Last Admin: 06/18/25 18:45 Dose: 14 unit Insulin Human Regular (Insulin Hum Regular 1 Unit/0.01 Ml (Per Unit)) 15 unit SC X1 ONE Stop: 06/18/25 23:35 Last Admin: 06/18/25 23:59 Dose: 15 unit Levetiracetam (Levetiracetam Inj 100 Mg/Ml Vial 5ml) 1,000 mg IVP Q12HR [facility] Stop: 07/18/25 16:04 Last Admin: 06/18/25 21:35 Dose: 1,000 mg Losartan Potassium (Losartan Potassium 25 Mg Tablet) 50 mg PO QDAY [facility] Stop: 07/19/25 08:59 Pantoprazole Sodium (Pantoprazole Inj 40 Mg Vial) 40 mg IVP QDAY [facility] Stop: 07/19/25 08:59 Potassium Chloride (Potassium Chloride 20 Meq Tabcr) 40 meq PO X1 ONE Stop: 06/19/25 00:51 Last Admin: 06/19/25 02:26 Dose: 40 meq Assessment & Plan Plan This is a 70-year-old female with PMHx of IDDM type II, s/p left BKA, recent CVA 3 months ago on PLAVIX/ASPIRIN with residual bowel and bladder incontinence, seizure disorder post CVA on KEPPRA, hypothyroidism, chronic constipation, CKD 3A v 3B, HTN, HLD, gout, depression/anxiety admitted for acute encephalopathy in settings of seizure and mild hyperglycemia. #Acute encephalopathy likely multifactorial,resolving #Hyperglycemia #Seizure, postictal versus bladder infection #Recent CVA 3 months ago DDx: Related to hyperglycemia versus bladder infection versus possible seizure Known history of seizure on KEPPRA, secondary to a CVA 3 months ago. Presents with acute altered mental status that occurred this morning, reportedly has confusion. She was hyperglycemic on admission with GLUCOSE 600. Likely acute encephalopathy in settings of seizure as a result of hypoglycemia. She had a witnessed seizure lasting 2 to 3 minutes while in the ED. Low suspicion for stroke, no focal neurological deficits on exam Head CT was negative for acute pathology. Given KEPPRA 1000 mg loading dose in the ED. Plan: ?Recommended to perform EEG awake and drowsy ? Continue home KEPPRA 1000 mg BID ? Continue PLAVIX 75 mg daily ? Continue ASPIRIN 81 mg daily ? Seizure and Aspiration precaution ? Physical therapy ? Glycemic control #Anxiety and depression ? Continue home SERTRALINE 150 mg q. day ? Cont to hold TRAZODONE 100 mg HS #Hyperglycemia due to type 2 diabetes #IDDM type II #ALLYN on CKD stage III #Leukocytosis #Normocytic anemia #Mild Hyponatemia #Lactic acidosis #HTN #HLD #Hypothyroidism #Elevated lipase enzyme #Bowel/urinary incontinence #Chronic constipation #Gout #Low suspicion for pneumonia Resr of the management as per primary care team. Patient was discussed with Neurologist, Dr Yohana Alexis MD PGY-3 Attending Provider Attestation/Addendum I did the virtual review of the chart and I agreed with resident's findings, assessment and plan of care. Imp: Seizure disorder: breakthrough sz from hyperglycemia/Mild UTI plan and recs: continue with Keppra fu with EEG.
[2025-06-19 20:00] VITALS: BP 153/68; PULSE 59; PULSE 67; RESP 14; TEMP 36.3; O2SAT 98
[2025-06-19] MEDS: ATORVASTATIN CALCIUM 20 MG TABLET 80 MG PO (21:14)
[2025-06-19] MEDS: INSULIN DEGLUDEC 5 UNIT/0.05 ML (PER 5 UNITS) 15 UNIT SC (21:28)
[2025-06-20] VITALS (9 sets, daily range): BP systolic 133–160; BP diastolic 60–73; PULSE 52–78; RESP 15–18; TEMP 35.9–36.4; O2SAT 97–99; BMI 29.5
[2025-06-20] MEDS: SODIUM CHLORIDE 0.9% 1000 ML 1,000 ML 100 ML IV ×2 (00:24→17:27)
[2025-06-20] MEDS: AMPICILLIN/SULBAC INJ 3 GM in SODIUM CHLORIDE 0.9% (POP) 100 ML IV ×4 (00:24→17:26)
[2025-06-20] MEDS: LEVOTHYROXINE SODIUM 25 MCG TABLET GT (05:10)
[2025-06-20 06:03] LABS: Basophils # (Auto) 0.1 Thou/mm3 (0.0-0.2); Basophils % (Auto) 1 % (0-2.5); Eosinophils # (Auto) 0.2 Thou/mm3 (0.0-0.5); Eosinophils % (Auto) 3 % (0-10); Hematocrit 31.1 % (36.0-46.0); Hemoglobin 10.4 g/dL (12.0-16.0); Immature Granulocytes Auto 0.02 Thou/mm3 (0.00-0.00); Lymphocytes # (Auto) 3.3 Thou/mm3 (1.0-4.8); Lymphocytes % (Auto) 41 % (10-50); Mean Corpuscular HGB Conc 33.4 g/dl (31.0-37.0); Mean Corpuscular Hemoglobin 30.3 pg (25.0-35.0); Mean Corpuscular Volume 91 fL (80-100); Monocytes # (Auto) 0.4 Thou/mm3 (0.0-0.8); Monocytes % (Auto) 5 % (0-12); Neutrophils # (Auto) 4.1 Thou/mm3 (1.8-7.7); Neutrophils % (Auto) 51 % (37-80); Nucleated Red Blood Cell # 0.00 Thou/mm3 (0.00-0.00); Nucleated Red Blood Cell % 0 /100 WBC (0); Platelet Count 209 Thou/mm3 (140-440); RDW Standard Deviation 44.5 fL (36.4-46.3); Red Blood Count 3.43 Miln/mm3 (4.00-5.20); White Blood Count 8.1 Thou/mm3 (3.6-11.0)
[2025-06-20 06:23] LABS: Alanine Aminotransferase 10 U/L (10-49); Albumin, Serum 3.3 gm/dL (3.4-4.8); Albumin/Globulin Ratio 1.4 (1.2-2.2); Alkaline Phosphatase 99 U/L (46-116); Anion Gap 11 (7-16); BUN/Creatinine Ratio 16 Ratio (12-20); Bilirubin,Total 0.3 mg/dL (0.3-1.2); Blood Urea Nitrogen 24 mg/dL (9-23); Calcium 9.1 mg/dL (8.3-10.6); Calcium (Corrected) 9.7 mg/dL (8.5-10.1); Carbon Dioxide 21.4 mMol/L (20.0-31.0); Chloride 109 mMol/L (98-107); Creatinine (Component) 1.5 mg/dL (0.6-1.3); Estimated Creatinine Clearance 41.6 mL/min (>60); Globulin 2.3 gm/dL (2.3-3.5); Glucose 192 mg/dL (74-106); Magnesium 1.7 mg/dL (1.6-2.6); Osmolality,Calculated 290 (275-295); Phosphorous 2.8 mg/dL (2.4-5.1); Potassium 4.1 mMol/L (3.4-5.1); Sodium 141 mMol/L (136-145); Total Protein 5.6 gm/dL (5.7-8.2); eGFR 37 See Note
[2025-06-20 07:18] LABS: Aspartate Amino Transferase < 8 U/L (0-34)
[2025-06-20] MEDS: SERTRALINE HCL 25 MG TABLET 150 MG PO (08:30)
[2025-06-20] MEDS: ASPIRIN EC 81 MG TABEC PO (08:31)
[2025-06-20] MEDS: CLOPIDOGREL BISULFATE 75 MG TABLET PO (08:31)
[2025-06-20] MEDS: PANTOPRAZOLE 40 MG TABLET PO (08:31)
[2025-06-20] MEDS: HEPARIN SOD INJ 5000 UNIT/ML VIAL SC (08:31)
--- NOTE | 2025-06-20 09:20 | PD.RESPRO ---
Documentation for date of: 06/20/25 Exam Vital Signs Temp Pulse Resp BP Pulse Ox O2 Del Method O2 Flow Rate 96.9 F 55 L 18 158/72 H 99 Room Air 6 06/20/25 08:00 06/20/25 08:00 06/20/25 08:00 06/20/25 08:00 06/20/25 08:00 06/20/25 08:00 06/18/25 19:16 Objective Labs 06/20/25 04:43 06/20/25 04:43 Labs: Laboratory Results - last 24 hr 06/20/25 04:43 WBC 8.1 RBC 3.43 L Hgb 10.4 L Hct 31.1 L MCV 91 MCH 30.3 MCHC 33.4 RDW Std Deviation 44.5 Plt Count 209 Neut % (Auto) 51 Lymph % (Auto) 41 Wheeler % (Auto) 5 Eos % (Auto) 3 Baso % (Auto) 1 Neut # (Auto) 4.1 Lymph # (Auto) 3.3 Wheeler # (Auto) 0.4 Eos # (Auto) 0.2 Baso # (Auto) 0.1 Immature Gran # (Auto) 0.02 H Absolute Nucleated RBC 0.00 Immature Gran % 0 Nucleated RBC % 0 Sodium 141 Potassium 4.1 Chloride 109 H Carbon Dioxide 21.4 Anion Gap 11 BUN 24 H Creatinine 1.5 H Estim Creat Clear Calc 41.6 L eGFR 37 L BUN/Creatinine Ratio 16 Glucose 192 H Calculated Osmolality 290 Calcium 9.1 Corrected Calcium 9.7 Phosphorus 2.8 Magnesium 1.7 Total Bilirubin 0.3 AST < 8 ALT 10 Alkaline Phosphatase 99 Total Protein 5.6 L Albumin 3.3 L Globulin 2.3 Albumin/Globulin Ratio 1.4 ABG Interpretation ABG results: 06/18/25 15:30 VBG pH 7.37 VBG pCO2 32 L VBG pO2 110 H VBG Base Excess -6 L Quality Measures Quality Measures VTE prophylaxis (Heparin subcut) Assessment & Plan Assessment Current Active Medications: Generic Name Dose Route Start Last Admin Trade Name Freq PRN Reason Stop Dose Admin Acetaminophen 650 mg 06/18/25 23:29 Acetaminophen 325 Mg Tablet PO 07/18/25 23:28 Q6H PRN PAIN SCALE 1-3 (mild Acetaminophen 650 mg 06/18/25 23:29 06/18/25 23:59 Acetaminophen 325 Mg Tablet PO 07/18/25 23:28 650 mg Q6H PRN Administration Fever >100.4 Hydrocodone Bitart/Acetaminophen 1 tab 06/18/25 23:29 Hydrocodone/Apap 10/325 Tab PO 06/23/25 23:28 Q4HR PRN PAIN SCALE 7-10 (Severe Amlodipine Besylate 5 mg 06/20/25 09:00 Amlodipine Besylate 5 Mg Tablet PO 07/20/25 08:59 QDAY ERIKA Aspirin 81 mg 06/19/25 09:00 06/20/25 08:31 Aspirin Ec 81 Mg Tabec PO 07/19/25 08:59 81 mg QDAY ERIKA Administration Atorvastatin Calcium 80 mg 06/19/25 21:00 06/19/25 21:14 Atorvastatin Calcium 20 Mg Tablet PO 07/19/25 20:59 80 mg HS ERIKA Administration Clopidogrel Bisulfate 75 mg 06/19/25 09:00 06/20/25 08:31 Clopidogrel Bisulfate 75 Mg Tablet PO 07/19/25 08:59 75 mg QDAY ERIKA Administration Dextrose 50 ml 06/18/25 23:29 Dextrose 50%-Water Inj 50 Ml Syringe IV 07/18/25 23:28 Q15MIN PRN BG <50 OR BG <70 & pt unresponsive Famotidine 20 mg 06/20/25 09:00 Famotidine Inj 10 Mg/Ml Vial 2 Ml IVP 07/20/25 08:59 QDAY [facility] Protocol Glucagon 1 mg 06/18/25 23:29 Glucagon Inj 1 Mg Vial IM Q15MIN PRN BG <70, and no IV access Heparin Sodium (Porcine) 5,000 unit 06/19/25 09:00 06/20/25 08:31 Heparin Sod Inj 5000 Unit/Ml Vial SC 07/03/25 08:59 5,000 unit BID ERIKA Administration Sodium Chloride 1,000 mls @ 100 mls/hr 06/19/25 02:00 06/20/25 00:24 Ns IV 07/19/25 01:59 100 mls/hr .Q10H ERIKA Administration Ampicillin Sodium/Sulbactam 100 mls @ 200 mls/hr 06/19/25 18:17 06/20/25 05:11 Sodium 3 gm/ Sodium Chloride IV 06/26/25 17:59 200 mls/hr Q6HR ERIKA Administration Insulin Degludec 25 unit 06/20/25 21:00 Insulin Degludec 5 Unit/0.05 Ml (Per 5 Units) SC 07/20/25 20:59 HS [facility] Insulin Human Lispro 0 unit 06/19/25 20:39 06/20/25 07:13 Insulin Lispro (Admelog) 1 Unit/0.01 Ml Unit SC 07/19/25 16:59 Not Given AC [facility] Protocol Labetalol HCl 10 mg 06/19/25 00:43 Labetalol Inj 5 Mg/Ml Vial 20 Ml IVP 07/19/25 00:42 Q2H PRN SBP>170 Levetiracetam 1,000 mg 06/20/25 21:00 Levetiracetam 250 Mg Tablet PO 07/20/25 20:59 HS [facility] Levetiracetam 500 mg 06/21/25 09:00 Levetiracetam 250 Mg Tablet PO 07/21/25 08:59 DAILY [facility] Levothyroxine Sodium 25 mcg 06/19/25 06:00 06/20/25 05:10 Levothyroxine Sodium 25 Mcg Tablet GT 07/19/25 05:59 25 mcg ACBR [facility] Administration Non-Formulary Medication 145 mcg 06/19/25 09:00 Linaclotide PO 07/19/25 08:59 QAM [facility] Oxycodone/Acetaminophen 1 tab 06/18/25 23:29 06/20/25 00:42 Oxycodone/Apap 5/325 Tablet PO 06/23/25 23:28 1 tab Q6H PRN Administration PAIN SCALE 4-6 (Moderate Sertraline HCl 150 mg 06/19/25 09:00 06/20/25 08:30 Sertraline Hcl 25 Mg Tablet PO 07/19/25 08:59 150 mg QDAY ERIKA Administration
--- NOTE | 2025-06-20 10:10 | ESDS_ITS ---
<Statement entered by Eric Green MD - 07/03/25 09:06> I reviewed above note and agree with findings and plans. I have also personally examined the patient with medicine team and went over assessment and plan with medical team including internet marketing assistant and resident physician. <Statement entered by Crow Helm MD - 06/20/25 19:56> Note reviewed and agree with care plan as documented. Please refer to the note below for further details. Plan discussed with attending physician Dr. Norma Helm MD PGY-2 Internal Medicine Planned Discharge Date 06/20/25 DS: Providers Provider Date of admission: 06/18/25 23:39 Primary care physician: Courtney Leonardo NP Admitting Provider: Damaris Davila MD Attending Provider on Admission: Eric Green MD Consults: 06/18/25 23:31 Referral Physical Therapy Routine Comment: Physician Instructions: 06/19/25 10:21 Consult to Neurology / Tele-Neurology Routine Comment: Breakthrough seizure on Keppra 1,000 mg BID Consulting Provider: Shadi Muller 06/19/25 10:34 Consult to Neurology / Tele-Neurology Routine Comment: Seizure Consulting Provider: Eric Green Attending Provider on DC: RESIDENT Wily Discharging Provider: RESIDENT Wily DS: Diagnosis Discharge Diagnosis (1) Seizure: Status: Acute Problem List Completed Was Problem List Reviewed/Reconciled?: Yes Hospital Course Hospital Course Hospital course: Hospital Course: Poornima Graves is a 68-year-old woman with a past medical history of insulin- dependent type 2 diabetes, diabetic nephropathy, status post left below-knee amputation, CVA 3 months ago on aspirin and Plavix, residual bowel and bladder incontinence, hypothyroidism, chronic constipation, CKD stage IIIa versus 3B, hypertension, hyperlipidemia, gout, depression and anxiety, and seizure disorder on Keppra who presented to the ED on 06/19/2025 with confusion. She was hyperglycemic on arrival with a glucose of 600 and had a seizure lasting about 2 to 3 minutes in the ED. She was given a loading dose of 1000 mg Keppra in the ED and admitted for her seizure. During her hospital stay, neurology was consulted and made adjustments to seizure medications. Additionally, she did not experience any other seizures, her blood sugar was brought under control, and EEG obtained per neurology recommendations. After EEG, patient was cleared for discharge from neurology perspective. Vital signs stable, CBC unremarkable, chem panel showed improving renal function and patient cleared for discharge. Problem List: #Acute encephalopathy, resolved #Insulin-dependent type 2 diabetes #Lactic acidosis #Acute hypoxic respiratory failure secondary to aspiration pneumonia versus postictal state #ALLYN on CKD stage III #HTN #HLD #Hypothyroidism #Elevated lipase enzyme #Bowel/urinary incontinence #Chronic constipation #Gout #Mild Hyponatemia (Resolved) Discharge Instructions: - Continue taking all other home medications as prescribed - Follow-up with PCP within 1-2 weeks of discharge - Follow-up with neurology within 1-2 weeks of discharge - Your keppra dosage was changed to 500 mg in the morning and 1,000 mg at night - Continue all other home medications as prescribed - If you do not have a PCP, you can follow-up at the [facility] - Return to ED if symptoms worsen The patient was seen and discussed with my attending physician Dr. Norma Baptiste DO PGY-1 Time Spent with Patient Time attestation: Total time spent providing and/or coordinating discharge services: Time spent: Less than 30 minutes Exam Vital Signs Temp Pulse Resp BP Pulse Ox O2 Del Method O2 Flow Rate 96.9 F 55 L 18 158/72 H 99 Room Air 6 06/20/25 08:00 06/20/25 08:00 06/20/25 08:00 06/20/25 08:00 06/20/25 08:00 06/20/25 08:00 06/18/25 19:16 Narrative Exam General: Awake and in no acute distress. Conversational and non-toxic appearing. Neurologic: GCS 15. Alert and oriented x3, no gross neurological deficit, and patient able to move all 4 extremities. HEENT: Normocephalic, atraumatic, mucous membranes moist. Pupils reactive to light. Heart: Regular rate and rhythm, normal S1 and S2, no murmurs. Lungs: Clear to auscultation bilaterally with no wheezing or crackles. Abdomen: Soft, nondistended, nontender, positive bowel sounds. No guarding or rebound tenderness. Extremities: Left below knee amputation. Scab wound were the end of the limb inserts into the prosthetic with surrounding erythema. The skin is not broken. No edema. 2+ radial and dorsalis pedis pulses in the remaining extremities. Skin: Warm. Dry. No rash or ecchymoses. Discharge Plan Plan Patient Disposition: HOME (Self Care) Patient condition on transfer: Stable Care Plan Goals: - We changed the dose of your Keppra medication from 1000 mg twice per day to 500 mg in the morning and 1000 mg in the evening - Remember to take your medication twice per day, as it is important for preventing seizures - Continue all of your other home medications - Follow-up with PCP within 1-2 weeks of discharge - If you do not have a PCP, you can follow-up at the [facility] - Return to ED if symptoms worsen Prescriptions/Referrals Prescriptions/Med Rec: New levetiracetam [Keppra] 1,000 mg tablet 1,000 mg PO HS 30 Days Qty: 30 0RF levetiracetam [Keppra] 500 mg tablet 500 mg PO DAILY 30 Days Qty: 30 0RF Rx Instructions: Take 500 mg in morning Continued trazodone 100 mg tablet 100 mg PO HS insulin degludec [Tresiba FlexTouch U-100] 100 unit/mL (3 mL) insulin pen 26 unit subcut QDAY Tradjenta 5 mg tablet 5 mg PO QDAY Patient Comments: TAKE 1 TABLET BY MOUTH EVERY DAY aspirin 81 mg capsule 81 mg PO QDAY clopidogrel [Plavix] 75 mg tablet 75 mg PO QDAY linaclotide 145 mcg capsule 145 mcg PO QAM sertraline 100 mg tablet 150 mg PO Q24H Patient Comments: TAKE 2 TABLETS BY MOUTH EVERY DAY pantoprazole 40 mg tablet,delayed release (DR/EC) 40 mg PO QDAY Patient Comments: TAKE 1 TABLET BY MOUTH EVERY DAY calcitriol 0.25 mcg capsule 0.25 mcg PO QDAY Patient Comments: TAKE 1 CAPSULE BY MOUTH EVERY DAY ferrous sulfate [Feosol] 325 mg (65 mg iron) tablet 325 mg PO BID levothyroxine 25 mcg capsule 25 mcg PO QDAY allopurinol 100 mg tablet 100 mg PO TID losartan 50 mg tablet 50 mg PO QDAY Jardiance 10 mg tablet 10 mg PO QDAY pioglitazone 30 mg tablet 30 mg PO QDAY Discontinued levetiracetam [Keppra] 500 mg tablet 1,000 mg PO BID No Action omega-3 fatty acids Capsule 600 mg PO QDAY Referrals: Courtney Leonardo NP [Primary Care Provider] Patient/Caregiver Discharge Instructions Education Materials: ED Seizure New Onset Unknown ... Print Language: Italian Stand Alone Forms: [employer]addy Award Info., Patient Portal Info Letter Discharge Order Discharge Orders: Discharge (Routine); Ordered 06/20/25 Ordered By: Viet Sosa Quality Discharge Quality Measures VTE prophylaxis
[2025-06-20] MEDS: FAMOTIDINE INJ 10 MG/ML VIAL 2 ML 20 MG IVP (11:01)
--- NOTE | 2025-06-20 12:50 | PC.NURSE ---
discharge order written, dr. brink said she need to see patient patient first before discharge.
--- NOTE | 2025-06-20 16:06 | ESPR_ITS ---
Documentation for date of: 06/20/25 Subjective Subjective Interval history: This is a 70-year-old female with PMHx of IDDM type II, diabetic nephropathy, s/p left BKA, recent CVA 3 months ago on PLAVIX/ASPIRIN with residual bowel and bladder incontinence, seizure disorder post CVA on KEPPRA, hypothyroidism, chronic constipation, CKD 3A v 3B, HTN, HLD, gout, depression/anxiety disorder presenting to ED with confusion.In the ED, initially was being worked up for hyperglycemia with GLUCOSE 600 in triage. However she had a seizure lasting about 2 to 3 minutes. At the time of encounter, patient was postictal, history was limited. However, her sister at bedside assisted.Reportedly, she lives with her daughter at home, and this morning, her sister was driving her to the [employer] and had noticed Poornima was slightly confused, and not making sense, and just didn't look like herself. No immediately drove back home, she was able to walk from the car to the house unassisted. However, she continued to have confusion, and decided to come to the ED.She had a stroke 3 months ago at [facility], currently on PLAVIX and ASPIRIN. Since she had bowel/stool incontinent and chronic constipation. Additionally, she was found to have seizures during her admission and was discharged on KEPPRA which she has been taking daily. No reported seizures since her last hospital discharge.Additionally, she is on INSULIN regimen for IDDM 2, however she had ran out of her INSULIN supply, her last dose was 2 days ago. Denies history of DKA. Never been hospitalized for hypoglycemia to her knowledge.She had RSV about a month ago, and had sustained a chronic dry cough since.She has a history of hypertension, previously was taking multiple medication. However, her PCP recently discontinued her ANTIHYPERTENSIVE as BP has been overall running low.Denies headache, fall or head trauma, fever, chills, visual or auditory disturbances, SOB, productive cough, chest pain, abdominal pain, nausea or vomiting, hematuria or dysuria.ED Course: Afebrile, BP 163/75, HR 95, satting well on room air. Hemoglobin 11.8, WBC 9.2, PLT 281. Normal coag panel. CHEM panel significant for sodium 127, CO2 18.4, GLUCOSE 398, A1c 11.9, BHB 0.1, creatinine 2.1, GFR 25, BUN 21, lactic acid 3.6 > 2.6, ALP 136, TG 442, cholesterol 275, HDL 48, lipase 60, ambulates pending. Troponin and BNP WNL. ABG showed pH 7.37, pCO2 32. UA showed 6 WBC, 1+ bacteria, 1+ blood, GLUCOSE 4+, protein, 2+, negative ketones.U tox was negative.CXR showed early bibasilar pneumonia.EKG shows sinus tachycardia without acute ST changes. QTC 467.Head CT was negative for acute hemorrhage, mass effect or midline shift. There is right temporal encephalomalacia, possibly from previous stroke. Past Medical History:As above. Past Surgical History: Left BKA, cholecystectomy, X1. Allergies:No known allergies. Family History:History of heart disease in both parents. Social History:Previously , currently , has 3 children, lives with her sister at home.Was born in [place], lived in [place] for 30 years.Currently retired, worked as a schoolteacher.Denies alcohol, drug or tobacco use. Medications: INSULIN DEGLUDEC 26 unit q. day, JARDIANCE 10 mg q. day, PIOGLITAZONE 30 mg q. day, TRADJENTA 5 mg q. day, CLOPIDOGREL 75 mg, KEPPRA 500 mg daily, LEVOTHYROXINE 25 mg daily, LINZESS 145 mcg daily, PANTOPRAZOLE 40 mg daily, SERTRALINE 100 mg daily, TRAZODONE 100 mg daily, ALLOPURINOL 300 mg daily. 06/19/25: Patient was seen and examined at the bedside. Patient's sister was also present at bedside and she reported that patient was confused a day ago when she fell on the floor but denied hitting her head. She has been sleeping more than usual. Patient's sister noted that she was not making sense when she was asking any question. She has a history of stroke in December 2024 and was admitted at [facility] where they performed an brain MRI which showed acute infarct and additionally, EEG which was abnormal consistent with seizures. Apparently, patient reported that she has not noticed any seizure-like activity in the past but she has been taking Keppra with compliance. Patient was alert and oriented x 3 during assessment and she stated that she does not not remember confusion noticed by her sister 1 day ago. Labs showed elevated white count 12.3, hemoglobin stable. Kidney function elevated from the baseline with BUN 21 creatinine 1.6, baseline 0.9 2024. Patient's blood sugar was elevated on admission and currently at 229. Patient's acute encephalopathy could be related to marked hyperglycemia and blood infection. Recommended EEG awake and drowsy to evaluate further. Recommended to continue same dose of Keppra. 06/20/2025: Patient was seen and examined at the bedside. Patient appears to be doing well and had no acute symptoms. No acute overnight events reported. Vitals show slightly elevated blood pressure. Labs were showing normocytic anemia hemoglobin stable at 10.4. Kidney functions slightly improved with BUN 24 creatinine 1.4. EEG showed spike and wave form changes in central and left temporal region. Seizure medications were optimized with 1000 mg at night and 500 mg in the morning and stable for discharge from neurology standpoint. Exam Vital Signs Temp Pulse Resp BP Pulse Ox O2 Del Method O2 Flow Rate 96.7 F L 65 15 160/73 H 98 Room Air 6 06/20/25 15:37 06/20/25 15:37 06/20/25 15:37 06/20/25 15:37 06/20/25 15:37 06/20/25 15:37 06/18/25 19:16 Narrative Exam GENERAL APPEARANCE: AxOx4, generally well-appearing female in no acute distress. HEENT: NC, AT. Dry mucous membrane. EOMI, clear conjunctiva, oropharynx clear. NECK: Supple without lymphadenopathy. No stiffness or restricted ROM. HEART: Regular rate and regular rhythm, normal S1/S2, no m/r/g LUNGS: CTAB, moving air well. No crackles or wheezes are heard. ABDOMEN: Soft, nontender, nondistended with good bowel sounds heard. BACK: No CVAT, no obvious deformity. EXTREMITIES: Without cyanosis, clubbing or edema. NEUROLOGICAL: Grossly nonfocal. Alert and oriented x 3. CN not formally tested but appear grossly intact. Left BKA with prosthesis. Upper extremity and right lower extremity power 5/ 5 with intact sensory system. Skin: Warm and dry without any rash. Psych: Appropriate mood and affect Objective Labs 06/20/25 04:43 06/20/25 04:43 Labs: Laboratory Results - last 24 hr 06/20/25 04:43 WBC 8.1 RBC 3.43 L Hgb 10.4 L Hct 31.1 L MCV 91 MCH 30.3 MCHC 33.4 RDW Std Deviation 44.5 Plt Count 209 Neut % (Auto) 51 Lymph % (Auto) 41 [place] % (Auto) 5 Eos % (Auto) 3 Baso % (Auto) 1 Neut # (Auto) 4.1 Lymph # (Auto) 3.3 [place] # (Auto) 0.4 Eos # (Auto) 0.2 Baso # (Auto) 0.1 Immature Gran # (Auto) 0.02 H Absolute Nucleated RBC 0.00 Immature Gran % 0 Nucleated RBC % 0 Sodium 141 Potassium 4.1 Chloride 109 H Carbon Dioxide 21.4 Anion Gap 11 BUN 24 H Creatinine 1.5 H Estim Creat Clear Calc 41.6 L eGFR 37 L BUN/Creatinine Ratio 16 Glucose 192 H Calculated Osmolality 290 Calcium 9.1 Corrected Calcium 9.7 Phosphorus 2.8 Magnesium 1.7 Total Bilirubin 0.3 AST < 8 ALT 10 Alkaline Phosphatase 99 Total Protein 5.6 L Albumin 3.3 L Globulin 2.3 Albumin/Globulin Ratio 1.4 ABG Interpretation ABG results: 06/18/25 15:30 VBG pH 7.37 VBG pCO2 32 L VBG pO2 110 H VBG Base Excess -6 L Quality Measures Quality Measures VTE prophylaxis (Heparin subcut) Advance care planning discussed with:: other Assessment & Plan Assessment Current Active Medications: Generic Name Dose Route Start Last Admin Trade Name Freq PRN Reason Stop Dose Admin Acetaminophen 650 mg 06/18/25 23:29 Acetaminophen 325 Mg Tablet PO 07/18/25 23:28 Q6H PRN PAIN SCALE 1-3 (mild Acetaminophen 650 mg 06/18/25 23:29 06/18/25 23:59 Acetaminophen 325 Mg Tablet PO 07/18/25 23:28 650 mg Q6H PRN Administration Fever >100.4 Hydrocodone Bitart/Acetaminophen 1 tab 06/18/25 23:29 Hydrocodone/Apap 10/325 Tab PO 06/23/25 23:28 Q4HR PRN PAIN SCALE 7-10 (Severe Amlodipine Besylate 5 mg 06/20/25 09:00 06/20/25 11:01 Amlodipine Besylate 5 Mg Tablet PO 07/20/25 08:59 5 mg QDAY ERIKA Administration Aspirin 81 mg 06/19/25 09:00 06/20/25 08:31 Aspirin Ec 81 Mg Tabec PO 07/19/25 08:59 81 mg QDAY ERIKA Administration Atorvastatin Calcium 80 mg 06/19/25 21:00 06/19/25 21:14 Atorvastatin Calcium 20 Mg Tablet PO 07/19/25 20:59 80 mg HS ERIKA Administration Clopidogrel Bisulfate 75 mg 06/19/25 09:00 06/20/25 08:31 Clopidogrel Bisulfate 75 Mg Tablet PO 07/19/25 08:59 75 mg QDAY ERIKA Administration Dextrose 50 ml 06/18/25 23:29 Dextrose 50%-Water Inj 50 Ml Syringe IV 07/18/25 23:28 Q15MIN PRN BG <50 OR BG <70 & pt unresponsive Famotidine 20 mg 06/20/25 09:00 06/20/25 11:01 Famotidine Inj 10 Mg/Ml Vial 2 Ml IVP 07/20/25 08:59 20 mg QDAY ERIKA Administration Protocol Glucagon 1 mg 06/18/25 23:29 Glucagon Inj 1 Mg Vial IM Q15MIN PRN BG <70, and no IV access Heparin Sodium (Porcine) 5,000 unit 06/19/25 09:00 06/20/25 08:31 Heparin Sod Inj 5000 Unit/Ml Vial SC 07/03/25 08:59 5,000 unit BID ERIKA Administration Sodium Chloride 1,000 mls @ 100 mls/hr 06/19/25 02:00 06/20/25 00:24 Ns IV 07/19/25 01:59 100 mls/hr .Q10H ERIKA Administration Ampicillin Sodium/Sulbactam 100 mls @ 200 mls/hr 06/19/25 18:17 06/20/25 11:36 Sodium 3 gm/ Sodium Chloride IV 06/26/25 17:59 200 mls/hr Q6HR ERIKA Administration Insulin Degludec 25 unit 06/20/25 21:00 Insulin Degludec 5 Unit/0.05 Ml (Per 5 Units) SC 07/20/25 20:59 HS ERIKA Insulin Human Lispro 0 unit 06/19/25 20:39 06/20/25 14:54 Insulin Lispro (Admelog) 1 Unit/0.01 Ml Unit SC 07/19/25 16:59 Not Given AC [facility] Protocol Labetalol HCl 10 mg 06/19/25 00:43 Labetalol Inj 5 Mg/Ml Vial 20 Ml IVP 07/19/25 00:42 Q2H PRN SBP>170 Levetiracetam 1,000 mg 06/20/25 21:00 Levetiracetam 250 Mg Tablet PO 07/20/25 20:59 HS ERIKA Levetiracetam 500 mg 06/21/25 09:00 Levetiracetam 250 Mg Tablet PO 07/21/25 08:59 DAILY ERIKA Levothyroxine Sodium 25 mcg 06/19/25 06:00 06/20/25 05:10 Levothyroxine Sodium 25 Mcg Tablet GT 07/19/25 05:59 25 mcg ACBR ERIKA Administration Non-Formulary Medication 145 mcg 06/19/25 09:00 Linaclotide PO 07/19/25 08:59 QAM ERIKA Oxycodone/Acetaminophen 1 tab 06/18/25 23:29 06/20/25 00:42 Oxycodone/Apap 5/325 Tablet PO 06/23/25 23:28 1 tab Q6H PRN Administration PAIN SCALE 4-6 (Moderate Sertraline HCl 150 mg 06/19/25 09:00 06/20/25 08:30 Sertraline Hcl 25 Mg Tablet PO 07/19/25 08:59 150 mg QDAY ERIKA Administration Plan This is a 70-year-old female with PMHx of IDDM type II, s/p left BKA, recent CVA 3 months ago on PLAVIX/ASPIRIN with residual bowel and bladder incontinence, seizure disorder post CVA on KEPPRA, hypothyroidism, chronic constipation, CKD 3A v 3B, HTN, HLD, gout, depression/anxiety admitted for acute encephalopathy in settings of seizure and mild hyperglycemia. #Acute encephalopathy likely multifactorial, resolved #Hyperglycemia, stable #Seizure, postictal versus bladder infection #Recent CVA 3 months ago DDx: Related to hyperglycemia versus bladder infection versus possible seizure Known history of seizure on KEPPRA, secondary to a CVA 3 months ago. Presents with acute altered mental status that occurred this morning, reportedly has confusion. She was hyperglycemic on admission with GLUCOSE 600. Likely acute encephalopathy in settings of seizure as a result of hypoglycemia. She had a witnessed seizure lasting 2 to 3 minutes while in the ED. Low suspicion for stroke, no focal neurological deficits on exam Head CT was negative for acute pathology. Given KEPPRA 1000 mg loading dose in the ED. EEG showed spike and wave form changes in central and left temporal region. Plan: ?Recommended to continue Keppra 1000 mg at night and 500 mg in the morning. Patient is stable for discharge from neurology standpoint ? Continue PLAVIX 75 mg daily ? Continue ASPIRIN 81 mg daily ? Seizure and Aspiration precaution ? Physical therapy ? Glycemic control #Anxiety and depression ? Continue home SERTRALINE 150 mg q. day ? Cont to hold TRAZODONE 100 mg HS #Hyperglycemia due to type 2 diabetes #IDDM type II #ALLYN on CKD stage III #Leukocytosis #Normocytic anemia #Mild Hyponatemia #Lactic acidosis #HTN #HLD #Hypothyroidism #Elevated lipase enzyme #Bowel/urinary incontinence #Chronic constipation #Gout #Low suspicion for pneumonia Resr of the management as per primary care team. Patient was discussed with Neurologist, Dr Yohana Alexis MD PGY-3
--- NOTE | 2025-06-20 17:01 | ESPR_ITS ---
<Statement entered by Eric Green MD - 07/03/25 09:05> I reviewed above note and agree with findings and plans. I have also personally examined the patient with medicine team and went over assessment and plan with medical team including customer experience intern and resident physician. <Statement entered by Crow Helm MD - 06/20/25 17:37> No acute overnight events. Seen and examined at bedside and patient resting comfortably in bed. No additional seizure events, vital signs stable, leukocytosis resolved, renal function slightly improved. Blood sugars remain elevated and will continue to adjust insulin while in house. Otherwise, neurology would like to obtain an EEG prior to discharge. Afterwards anticipate discharge within next 24 to 48 hours. ----- Note reviewed and agree with care plan as documented. Please refer to the note below for further details. Plan discussed with attending physician Dr. Norma Helm MD PGY-2 Internal Medicine Documentation for date of: 06/20/25 Subjective Subjective Interval history: No overnight events. Patient seen and examined at bedside and was resting comfortably in bed. Patient is cleared for discharge from a medicine standpoint. Will continue sliding scale insulin for today. Pending neurology's EEG read. Exam Vital Signs Temp Pulse Resp BP Pulse Ox O2 Del Method O2 Flow Rate 96.7 F L 65 15 160/73 H 98 Room Air 6 06/20/25 15:37 06/20/25 15:37 06/20/25 15:37 06/20/25 15:37 06/20/25 15:37 06/20/25 15:37 06/18/25 19:16 Narrative Exam General: Awake and in no acute distress. Conversational and non-toxic appearing. Neurologic: GCS 15. Alert and oriented x3, no gross neurological deficit, and patient able to move all 4 extremities. HEENT: Normocephalic, atraumatic, mucous membranes moist. Pupils reactive to light. Heart: Regular rate and rhythm, normal S1 and S2, no murmurs. Lungs: Clear to auscultation bilaterally with no wheezing or crackles. Abdomen: Soft, nondistended, nontender, positive bowel sounds. No guarding or rebound tenderness. Extremities: Left below knee amputation. Scab wound were the end of the limb inserts into the prosthetic with surrounding erythema. The skin is not broken. No edema. 2+ radial and dorsalis pedis pulses in the remaining extremities. Skin: Warm. Dry. No rash or ecchymoses. Objective Labs 06/20/25 04:43 06/20/25 04:43 Labs: Laboratory Results - last 24 hr 06/20/25 04:43 WBC 8.1 RBC 3.43 L Hgb 10.4 L Hct 31.1 L MCV 91 MCH 30.3 MCHC 33.4 RDW Std Deviation 44.5 Plt Count 209 Neut % (Auto) 51 Lymph % (Auto) 41 [place] % (Auto) 5 Eos % (Auto) 3 Baso % (Auto) 1 Neut # (Auto) 4.1 Lymph # (Auto) 3.3 [place] # (Auto) 0.4 Eos # (Auto) 0.2 Baso # (Auto) 0.1 Immature Gran # (Auto) 0.02 H Absolute Nucleated RBC 0.00 Immature Gran % 0 Nucleated RBC % 0 Sodium 141 Potassium 4.1 Chloride 109 H Carbon Dioxide 21.4 Anion Gap 11 BUN 24 H Creatinine 1.5 H Estim Creat Clear Calc 41.6 L eGFR 37 L BUN/Creatinine Ratio 16 Glucose 192 H Calculated Osmolality 290 Calcium 9.1 Corrected Calcium 9.7 Phosphorus 2.8 Magnesium 1.7 Total Bilirubin 0.3 AST < 8 ALT 10 Alkaline Phosphatase 99 Total Protein 5.6 L Albumin 3.3 L Globulin 2.3 Albumin/Globulin Ratio 1.4 ABG Interpretation ABG results: 06/18/25 15:30 VBG pH 7.37 VBG pCO2 32 L VBG pO2 110 H VBG Base Excess -6 L Quality Measures Quality Measures VTE prophylaxis (Heparin subcut) Advance care planning discussed with:: patient Assessment & Plan Assessment Current Active Medications: Generic Name Dose Route Start Last Admin Trade Name Sanket PRN Reason Stop Dose Admin Acetaminophen 650 mg 06/18/25 23:29 Acetaminophen 325 Mg Tablet PO 07/18/25 23:28 Q6H PRN PAIN SCALE 1-3 (mild Acetaminophen 650 mg 06/18/25 23:29 06/18/25 23:59 Acetaminophen 325 Mg Tablet PO 07/18/25 23:28 650 mg Q6H PRN Administration Fever >100.4 Hydrocodone Bitart/Acetaminophen 1 tab 06/18/25 23:29 Hydrocodone/Apap 10/325 Tab PO 06/23/25 23:28 Q4HR PRN PAIN SCALE 7-10 (Severe Amlodipine Besylate 5 mg 06/20/25 09:00 06/20/25 11:01 Amlodipine Besylate 5 Mg Tablet PO 07/20/25 08:59 5 mg QDAY ERIKA Administration Aspirin 81 mg 06/19/25 09:00 06/20/25 08:31 Aspirin Ec 81 Mg Tabec PO 07/19/25 08:59 81 mg QDAY ERIKA Administration Atorvastatin Calcium 80 mg 06/19/25 21:00 06/19/25 21:14 Atorvastatin Calcium 20 Mg Tablet PO 07/19/25 20:59 80 mg HS ERIKA Administration Clopidogrel Bisulfate 75 mg 06/19/25 09:00 06/20/25 08:31 Clopidogrel Bisulfate 75 Mg Tablet PO 07/19/25 08:59 75 mg QDAY ERIKA Administration Dextrose 50 ml 06/18/25 23:29 Dextrose 50%-Water Inj 50 Ml Syringe IV 07/18/25 23:28 Q15MIN PRN BG <50 OR BG <70 & pt unresponsive Famotidine 20 mg 06/20/25 09:00 06/20/25 11:01 Famotidine Inj 10 Mg/Ml Vial 2 Ml IVP 07/20/25 08:59 20 mg QDAY ERIKA Administration Protocol Glucagon 1 mg 06/18/25 23:29 Glucagon Inj 1 Mg Vial IM Q15MIN PRN BG <70, and no IV access Heparin Sodium (Porcine) 5,000 unit 06/19/25 09:00 06/20/25 08:31 Heparin Sod Inj 5000 Unit/Ml Vial SC 07/03/25 08:59 5,000 unit BID ERIKA Administration Sodium Chloride 1,000 mls @ 100 mls/hr 06/19/25 02:00 06/20/25 00:24 Ns IV 07/19/25 01:59 100 mls/hr .Q10H ERIKA Administration Ampicillin Sodium/Sulbactam 100 mls @ 200 mls/hr 06/19/25 18:17 06/20/25 11:36 Sodium 3 gm/ Sodium Chloride IV 06/26/25 17:59 200 mls/hr Q6HR ERIKA Administration Insulin Degludec 25 unit 06/20/25 21:00 Insulin Degludec 5 Unit/0.05 Ml (Per 5 Units) SC 07/20/25 20:59 HS ERIKA Insulin Human Lispro 0 unit 06/19/25 20:39 06/20/25 14:54 Insulin Lispro (Admelog) 1 Unit/0.01 Ml Unit SC 07/19/25 16:59 Not Given AC [facility] Protocol Labetalol HCl 10 mg 06/19/25 00:43 Labetalol Inj 5 Mg/Ml Vial 20 Ml IVP 07/19/25 00:42 Q2H PRN SBP>170 Levetiracetam 1,000 mg 06/20/25 21:00 Levetiracetam 250 Mg Tablet PO 07/20/25 20:59 HS ERIKA Levetiracetam 500 mg 06/21/25 09:00 Levetiracetam 250 Mg Tablet PO 07/21/25 08:59 DAILY ERIKA Levothyroxine Sodium 25 mcg 06/19/25 06:00 06/20/25 05:10 Levothyroxine Sodium 25 Mcg Tablet GT 07/19/25 05:59 25 mcg ACBR [facility] Administration Non-Formulary Medication 145 mcg 06/19/25 09:00 Linaclotide PO 07/19/25 08:59 QAM ERIKA Oxycodone/Acetaminophen 1 tab 06/18/25 23:29 06/20/25 00:42 Oxycodone/Apap 5/325 Tablet PO 06/23/25 23:28 1 tab Q6H PRN Administration PAIN SCALE 4-6 (Moderate Sertraline HCl 150 mg 06/19/25 09:00 06/20/25 08:30 Sertraline Hcl 25 Mg Tablet PO 07/19/25 08:59 150 mg QDAY ERIKA Administration Plan 68-year-old woman with a past medical history of insulin-dependent type 2 diabetes, diabetic nephropathy, status post left below-knee amputation, CVA 3 months ago on aspirin and Plavix, residual bowel and bladder incontinence, hypothyroidism, chronic constipation, CKD stage IIIa versus 3B, hypertension, hyperlipidemia, gout, depression and anxiety, and seizure disorder on Keppra who presented to the ED on 06/19/2025 with confusion. She was hyperglycemic on arrival with a glucose of 600 and had a seizure lasting about 2 to 3 minutes in the ED. She was given a loading dose of 1000 mg Keppra in the ED and admitted for her seizure. #Acute encephalopathy due to seizure versus breakthrough seizure versus CVA versus hyperglycemia * Patient had a CVA 3 months ago, was told that she had 3 seizures at the time and had never had seizures before * She mentions that she was discharged on Keppra at the time to take twice a day * The morning of the day of presentation to the ED, the patient did not take her Keppra medication, likely leading to the seizure in the ED * Acute encephalopathy secondary to breakthrough seizure, versus CVA, versus hyperglycemia are all less likely due to the patient missing her medication * Head CT was negative for any acute hemorrhage or infarction, there was encephalomalacia in the right temporal lobe * Creatinine kinase 67, not elevated Plan: * Continue Keppra, per neurology, change morning dose to 500 mg and continue evening dose of 1000 mg * Continue Plavix 75 mg daily * Continue aspirin 81 mg daily * Seizure precautions * Aspiration precautions * Neurology following, pending EEG * PT consult #Hyperglycemia #Insulin-dependent type 2 diabetes #Lactic acidosis * Glucose on arrival was 600, trended down to 170, back up to 324 * A1c 11.9 * Was given 14 units of regular insulin, glucose improved to 376 * Anion gap of 15, pH 7.37, lactic acid 3.6 down trended to 2.6, patient was given 2 L of fluids, low suspicion for DKA * Degludec 25 units given morning of 06/20/2025 Plan: * Will continue sliding scale insulin with degludec #Acute hypoxic respiratory failure secondary to aspiration pneumonia versus postictal state * Patient had increased oxygen demand * CXR showed possible early pneumonia * She reports chronic dry cough, residual post RSV. Afebrile and no leukocytosis. * Received a dose of CEFTRIAXONE and AZITHROMYCIN while in ED. Plan: * Started Unasyn 3 gm IV every 6 hours on 06/19/2025, continue #ALLYN on CKD stage III * Patient is a history of CKD stage III, consider diabetic nephropathy * She sees computer help desk specialist is Dr. Hebert in [place], previously stated that she may need hemodialysis in future as kidney function is declining. Admission CR 2.1, GFR 25, BUN 21. No baseline renal function on board. * Creatinine stable at 1.6, eGFR 47.3, increased from 39.9 on admission. Plan: * Renally dose meds, avoid overdiuresis and NEPHROTOXINS * Daily CMP #HTN #HLD #Hypothyroidism * She has previous history of hypertension, however her ANTIHYPERTENSIVE were discontinued as recently as her BP has been on the lower side. On admission BP 163/77, may be reactive. Hypertriglyceridemia likely 2/2 hyperglycemia. * TSH 1.16 * Free T4 1.41 Plan: * LABETALOL PRN on board * Continue home ATORVASTATIN 80 mg daily * Continue home LEVOTHYROXINE 25 mg daily #Elevated lipase enzyme * Lipase 60, and triglyceride 400s may suggest acute pancreatitis, however she is asymptomatic without abdominal pain at this point. Plan: * Pending ambulates * Continue IVF as above * May need to increase fluid rate if acute pancreatitis suspected #History of Anxiety and depression Plan: * Continue home SERTRALINE 150 mg q. day * Holding home TRAZODONE 100 mg HS in settings of acute encephalopathy #Bowel/urinary incontinence #Chronic constipation Plan: * Continue home LINZESS 145 mcg daily #Gout * No signs of gout attack. Plan: * Holding ALLOPURINOL in settings of suspected ALLYN #Mild Hyponatemia (Resolved) Hospital Maintenance: DVT ppx: Subcu heparin 5000 units twice daily Diet: Low-carb IV lines: Peripheral IVs Code status: Full code Dispo: Clear to discharge. Kept 1 more day for EEG per neuro. Patient was seen and discussed with my attending physician Dr. Norma ALANIZ and my senior resident Dr. Volodymyr ALANIZ PGY-2. Vik Baptiste DO PGY-1.
--- NOTE | 2025-06-20 17:07 | RESP.EEG ---
EEG COMPLETED AT THIS TIME AND WAITING TO BE READ
[2025-06-20] MEDS: INSULIN LISPRO (AdmeLOG) 1 UNIT/0.01 ML UNIT SC (17:32)
--- NOTE | 2025-06-20 19:20 | PC.NURSE ---
MD GIBSON NOTIFIED OF PATIENT BP 151/69 PRIOR TO DISCHARGED, STATED OK TO DISCHARGE PATIENT WITH THAT BLOOD PRESSURE.
== END 2025-06-20 19:40 | disposition home or self-care (01) | DRG 100 ==
LOC: SERX 16:33 → SERHOLD 23:46 → S2NX 06-19 01:25
PROVIDERS: Admitting Provider Student in an Organized Health Care Education/Training Program; PCP Registered Nurse; Visit Provider Internal Medicine
DX: G40.909 Epilepsy, unspecified, not intractable, without status epilepticus (principal); J69.0 Pneumonitis due to inhalation of food and vomit; J96.01 Acute respiratory failure with hypoxia; N17.9 Acute kidney failure, unspecified; E87.20 Acidosis, unspecified; E87.1 Hypo-osmolality and hyponatremia; N39.0 Urinary tract infection, site not specified; G93.40 Encephalopathy, unspecified; I12.9 Hypertensive chronic kidney disease with stage 1 through stage 4 chronic kidney disease, or unspecified chronic kidney disease; N18.31 Chronic kidney disease, stage 3a; K59.09 Other constipation; E11.22 Type 2 diabetes mellitus with diabetic chronic kidney disease; M10.9 Gout, unspecified; R32 Unspecified urinary incontinence; F32.A Depression, unspecified; F41.9 Anxiety disorder, unspecified; E86.0 Dehydration; E03.9 Hypothyroidism, unspecified; G93.89 Other specified disorders of brain; E11.65 Type 2 diabetes mellitus with hyperglycemia; E11.649 Type 2 diabetes mellitus with hypoglycemia without coma; Z86.73 Personal history of transient ischemic attack (TIA), and cerebral infarction without residual deficits; T38.3X6A Underdosing of insulin and oral hypoglycemic [antidiabetic] drugs, initial encounter; Z89.512 Acquired absence of left leg below knee; Z79.82 Long term (current) use of aspirin; Z79.02 Long term (current) use of antithrombotics/antiplatelets; Z79.4 Long term (current) use of insulin; Z79.899 Other long term (current) drug therapy; Z90.710 Acquired absence of both cervix and uterus
CPT/HCPCS: 36415; 70450; 71045; 80048; 80053; 80061; 80307; 81001; 82010; 82150; 82550; 82803; 83036; 83605; 83690; 83735; 83880; 84100; 84145; 84439; 84443; 84484; 85025; 85610; 85730; 87040; 87077; 87086; 87186; 87400; 87811; 93005; 95816; 96361; 96365; 96372; 96375; 97162; 99284; J0295; J0696; J1644; J1815; J1953; J2470; J3360; J3490; J7030; J7050; J7120; A9270

== ENCOUNTER 2025-10-07 21:00 | Inpatient (IN) | payer MEDICARE, MEDICAID, SELFPAY ==
--- NOTE | 2025-10-07 21:02 | PD.EDNEURO ---
Neuro Symptoms Deficit-RME/HPI General Chief Complaint: Seizure Stated Complaint: SEIZURE Time Seen by Provider: 10/07/25 21:02 Arrival date/time: 10/07/25 21:00 Mode of arrival: EMS RME / HPI RME / HPI Narrative: DR. WILKINS MAIN ED EVALUATION: Patient with Hx of multiple CVA's without significant residual motor deficits and Hx of SZ disorder reportedly had 3 successive SZ's, 1 at home and 2 en route by EMS without lucid interval. 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 Patient notably moving right side and flaccid on the left and thereby suspected stroke called in field. Upon arrival patient is deeply somnolent minimally arouasble, nonverbal, GCS of 3 with sonorous respirations. No reported head trauma, urinary or bowel incontinence, or tongue bite. PMH: CVA, Seizure, HTN, Type II DM, Hyperthyroidism, Depression, Anxiety PSH: Hysterectomy, Allergies: NKDA Social: Unobtainable at this time Related Data Home Medications ?Medication ?Instructions ?Recorded ?Confirmed allopurinol 100 mg tablet 100 mg PO TID 06/18/25 06/18/25 aspirin 81 mg capsule 81 mg PO QDAY 06/18/25 06/18/25 calcitriol 0.25 mcg capsule 0.25 mcg PO QDAY 06/18/25 06/18/25 clopidogrel 75 mg tablet (Plavix) 75 mg PO QDAY 06/18/25 06/18/25 empagliflozin 10 mg tablet 10 mg PO QDAY 06/18/25 06/18/25 (Jardiance) ferrous sulfate 325 mg (65 mg 325 mg PO BID 06/18/25 06/18/25 iron) tablet (Feosol) insulin degludec 100 unit/mL (3 26 unit subcut QDAY 06/18/25 06/18/25 mL) subcutaneous pen (Tresiba FlexTouch U-100 insulin) levothyroxine 25 mcg capsule 25 mcg PO QDAY 06/18/25 06/18/25 linaclotide 145 mcg capsule 145 mcg PO QAM 06/18/25 06/18/25 linagliptin 5 mg tablet (Tradjenta) 5 mg PO QDAY 06/18/25 06/18/25 losartan 50 mg tablet 50 mg PO QDAY 06/18/25 06/18/25 omega-3 fatty acids 600 mg PO QDAY 06/18/25 06/18/25 pantoprazole 40 mg tablet,delayed 40 mg PO QDAY 06/18/25 06/18/25 release pioglitazone 30 mg tablet 30 mg PO QDAY 06/18/25 06/18/25 sertraline 100 mg tablet 150 mg PO Q24H 06/18/25 06/18/25 trazodone 100 mg tablet 100 mg PO HS 06/18/25 06/18/25 Allergies Allergy/AdvReac Type Severity Reaction Status Date / Time No Known Allergies Allergy Verified 06/18/25 15:27 Review of Systems Review of Systems ROS Unobtainable: unobtainable due to mental status Past Medical History Past Medical History NEUROLOGIC: Positive Cerebrovascular Accident and Seizures CARDIAC: Positive Hypertension GENITOURINARY: Positive Renal Disease ENDOCRINE: Positive Diabetes Mellitus Type 2 and Hyperthyroidism PSYCHO/SOCIAL: Positive Depression and Anxiety OTHER HISTORY: Positive Hospitalization Surgical History SURGICAL: Positive Hysterectomy and Section ED Exam Narrative Physical exam: GEN. APPEARANCE: Somnolent, unresponsive to verbal or tactile stimuli with sonorous respirations. VITALS: All vitals were reviewed and the pulse ox is 95%, which is normal according to my interpretation HEENT: Normocephalic, atraumatic and nontender. Pupils are equal and reactive. Patient's eye movements oscillating from left to right although no nystagmus appreciated. Oral mucosa is moist. NECK: Supple, nontender, no meningismus, no JVD. BL L > R bruit, known carotid stenosis, pending a noderectomy. CHEST: Nontender on palpation no deformity and no crepitus. CARDIOVASCULAR: Heart regular rhythm, no murmur or gallop rub or extra beats. LUNGS: Clear to auscultation bilaterally with symmetrical chest rise. No laboring tachypnea or wheezing. No intercostal subcostal retraction. No rales and no rhonchi. ABDOMEN: Soft, flat, nontender to palpation, no guarding or rebound tenderness. There are no abnormal masses palpated. No pulsatile masses or bruits. Active and normal bowel sounds. EXTREMITIES: Normal inspection and palpation. No edema. No cyanosis. Patient is able to move all 4 extremities well SKIN: Warm and dry, no rashes noted. MUSCULOSKELETAL: No lumbar or midline bony tenderness. There is no CVA tenderness. No paraspinal muscle spasm or tenderness. NEURO: Obtunded, unable to follow commands, GCS of 3, extremities are flaccid. PSYCHIATRIC: Patient is in normal mood and affect, cooperative. LYMPHATICS: No major lymphadenopathy noted. Course Quality Measures Suspected type of Stroke: Unknown at this time Last know well: unknown Tenecteplase given: Reason(s) TPA not given: Siezure at onset with post-ictal neuro impairment not given stroke Orders Category Date Time Status Admit to Inpatient Status Routine Admission 10/08/25 00:04 Active Patient Condition Routine Admission 10/07/25 23:59 Ordered Aspiration precautions ONCE Care 10/08/25 00:12 Active Bedside Blood Glucose NOW Care 10/07/25 21:04 Active Wallcovering Hanger NOW Care 10/07/25 21:04 Active Continuous Pulse Oximetry NOW Care 10/07/25 21:04 Completed EKG (ED ONLY) *Do not use* NOW Care 10/07/25 21:04 Completed Riddle [Urinary Catheter] QS Care 10/07/25 21:33 Active In and Out Catheter NEEDED Care 10/07/25 21:04 Active Insert IV NOW Care 10/07/25 21:04 Active NIH Stroke Scale now Care 10/07/25 21:04 Active NPO NOW Care 10/07/25 21:04 Active NPO NOW Care 10/08/25 00:05 Active Neuro Check Q1HR Care 10/07/25 21:04 Completed Neuro Check Q30MIN Care 10/07/25 21:04 Completed Neuro Check Q4H Care 10/08/25 00:19 Active Notify provider NEEDED Care 10/07/25 23:59 Active Nurse Swallow Screen X1 Care 10/08/25 00:14 Active Nurse Swallow Screen x1 Care 10/07/25 21:04 Active Seizure precautions NEEDED Care 10/08/25 00:05 Active Consult to Neurology / Tele-Neurology Routine Cons 10/07/25 21:04 Active Consult to Neurology / Tele-Neurology Routine Cons 10/08/25 00:23 Active Diet NPO (NOW) Diet 10/08/25 00:[address] angio stroke protocol Stat Exams 10/07/25 21:[address] stroke protocol Stat Exams 10/07/25 21:04 Completed EKG (ED Only) Stat Exams 10/07/25 21:04 Draft XR chest 1V portable Stat Exams 10/07/25 21:04 Completed Alcohol, Blood Medical Stat Lab 10/07/25 21:19 Completed B-Type Natriuretic Peptide Stat Lab 10/07/25 21:19 Completed CBC AM DRAW Lab 10/12/25 05:00 Ordered CBC AM DRAW Lab 10/08/25 05:00 Ordered CBC AM DRAW Lab 10/09/25 05:00 Ordered CBC AM DRAW Lab 10/10/25 05:00 Ordered CBC AM DRAW Lab 10/11/25 05:00 Ordered CBC Stat Lab 10/07/25 21:19 Completed Comprehensive Metabolic Panel AM DRAW Lab 10/12/25 05:00 Ordered Comprehensive Metabolic Panel AM DRAW Lab 10/08/25 05:00 Ordered Comprehensive Metabolic Panel AM DRAW Lab 10/09/25 05:00 Ordered Comprehensive Metabolic Panel AM DRAW Lab 10/10/25 05:00 Ordered Comprehensive Metabolic Panel AM DRAW Lab 10/11/25 05:00 Ordered Comprehensive Metabolic Panel Stat Lab 10/07/25 21:19 Completed Drug Screen,Urine Stat Lab 10/07/25 21:19 Completed HCG Titer if Positive Stat Lab 10/07/25 21:19 Completed Magnesium Stat Lab 10/07/25 21:19 Completed Partial Thromboplastin Time Stat Lab 10/07/25 21:19 Completed Prothrombin Time with INR Stat Lab 10/07/25 21:19 Completed Troponin I Stat Lab 10/07/25 21:19 Completed Urinalysis, C/S if Indicated Stat Lab 10/07/25 12:30 Completed Urine Culture Stat Lab 10/07/25 12:30 Received Acetaminophen Tab [Tylenol Tab] Med 10/08/25 00:04 Active 650 mg PO Q6H PRN Aspirin Supp Med 10/08/25 09:00 Active 81 mg IN DAILY Dextrose 50% Syr [D50w Syringe Abboject] Med 10/08/25 00:13 Active 25 ml IV Q15MIN PRN Dextrose 50% Syr [D50w Syringe Abboject] Med 10/08/25 00:13 Active 50 ml IV Q15MIN PRN Enoxaparin [Lovenox] Med 10/08/25 09:00 Active 40 mg SC QDAY Glucagon Inj Med 10/08/25 00:13 Active 1 mg IM Q15MIN PRN INSULIN LISPRO (AdmeLOG) [HumaLOG] Med 10/08/25 07:30 Active See Protocol SC AC Labetalol* IV [Trandate IV] Med 10/07/25 21:03 Active 10 mg IVP Q15M PRN Ondansetron Inj [Zofran Inj] Med 10/07/25 21:03 Active 4 mg IVP Q4HR PRN Phenytoin Inj [Dilantin Inj] Med 10/07/25 21:25 Discontinued 1,500 mg IV X1 ONE Phenytoin Inj [Dilantin Inj] Med 10/08/25 06:00 Active 100 mg IV TID Phenytoin Inj [Dilantin Inj] 1,500 mg Med 10/07/25 22:00 Discontinued Sodium Chloride 0.9% 250 ml [Ns] 250 ml IV X1 Sodium Chloride 0.9% 1000 ml [Ns] 1,000 ml Med 10/07/25 21:15 Active IV Q10H levETIRAcetam INJ [Keppra Inj] Med 10/08/25 09:00 Active 1,500 mg IVP BID levETIRAcetam INJ [Keppra Inj] Med 10/07/25 21:25 Discontinued 1,500 mg IVP X1 ONE Code Status Routine Oth 10/07/25 23:59 Ordered EEG Extended Monitoring EEG Stat RT 10/08/25 00:12 Ordered Oxygen Delivery NOW RT 10/07/25 21:04 Active Reevaluation(s) Reevaluation #1: Patient is lucid and following commands. Time: 21:51 Vital Signs Vital signs: Vital Signs Temperature 97.8 F 10/07/25 21:07 Pulse Rate 91 10/07/25 21:07 Respiratory Rate 18 10/07/25 21:07 Blood Pressure 185/80 H 10/07/25 21:07 Pulse Oximetry (%) 100 10/07/25 21:07 Oxygen Delivery Method Oxy Mask 10/07/25 21:07 Oxygen Flow Rate 12 10/07/25 21:07 Neuro Symptoms / Deficit MDM Narrative MDM Narrative:: Scribe Attestation: Alison Haas, reno scribing for and in the presence of Dr. Wilkins. Provider Notation: Although this document has been carefully reviewed, there may still be some phonetic and other typographical errors. These errors are purely grammatical due to imperfections in the software program and should not be construed in any way to compromise the substance of the patient's medical care during this visit. Patient with Hx of multiple CVA's without significant residual motor deficits and Hx of SZ disorder reportedly had 3 successive SZ's, 1 at home and 2 en route by EMS without lucid interval. 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 Patient notably moving right side and flaccid on the left and thereby suspected stroke called in field. Please see PE findings. Patient initially difficult to assess due to post-ictal state and received Versed in field, hypertensive upon on arrival, and placed on stroke protocol. STAT CT scan performed demonstrated evidence of previous stroke in the right parietal region without acute findings. CTA is currently pending. STAT nuerology consult obtained and recommended dual Keppra and Dilantin loads as patient is in nonconvulsive status epilepticus. Upon return to ED, patient's sensorium gradually improved although patient demonstrates hemineglect involving the left side with improving normal motor strength BL. Previously noted gaze has resolved, although patient does have nystagmus in neural gaze. Symptoms may be telephone claims representative of Phoenix's paralysis, possible recurrent CVA, nonconvulsive status epilepticus. Will admit to hospitalist for further evaluation and continued EEG monitoring. Patient is not a candidate for TPA given rapidly improved symptoms and observed seizure activity. CTA without LVO, no significant cervical arterial stenosis. Hospitalist consulted and agrees to admit, as patient will likely need EEG for CVA workup. 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 Patient data External records reviewed:: [facility] previous records (Reviewed prior ED records from 06/18/25. Patient was seen for Seizure.) Clinical information provided by:: EMS Social determinants that could affect healthcare access:: mental health (Depression/Anxiety) Patient has the following chronic illnesses:: Seizure, HTN, Type II DM, Hyperthyroidism, Depression, Anxiety How is presenting disease/condition affected by chronic disease/condition?: exacerbated by Evaluation data The following diagnostics were reviewed and interpreted by me:: lab results, radiology exam(s) and EKG tracing(s) (EKG demonstrates sinus rhythm, rate of 87, left axis, no ectopy, with first degree AV block, previous anteroventral wall CA, left posterior israel-block also noted, per my interpretation.) Lab and/or radiology exams considered but not ordered:: None Interpretation Summary: RADIOLOGY Head/Brain CT: Findings: No significant ventricular enlargement. Again noted encephalomalacia in the right temporal lobe Intra-axial or extra-axial hemorrhage density is not seen. No mass effect or midline shift Basal cisterns are not remarkable. Fourth ventricle is midline. Cranial vault intact. Impression: Negative for acute hemorrhage, mass effect or midline shift Head/Neck CTA: Findings: Moderate calcification right carotid bifurcation, 20 to 40% stenosis right carotid bifurcation origin right internal carotid artery Moderate calcification left carotid bifurcation, 10 to 30% narrowing, carotid bifurcation or internal carotid artery Dominant left vertebral artery in the neck with no critical stenoses Intracranial vertebral arteries basilar artery posterior cerebral branches fill with no large vessel occlusions Petrous juxtasellar supraclinoid portions internal carotid arteries intact M1 segments middle cerebral arteries middle cerebral artery trifurcation vessels posterior cerebral branches do not show large vessel occlusions Multiple areas of irregularity right posterior cerebral artery IMPRESSION: No significant neck arterial stenoses No cerebral large vessel arterial occlusions or thrombus Chest X-Ray: FINDINGS: Mild heart failure Moderate enlargement left ventricle Prominent vascular congestion Early septal edema at the lung bases IMPRESSION: Mild heart failure Medications / Prescriptions Medications or Prescriptions considered but not ordered:: None Medication administrations:: Medication Administration History Acetaminophen (Acetaminophen 325 Mg Tablet) 650 mg PO Q6H PRN PRN Reason: Fever >100.4 Stop: 11/07/25 00:03 Aspirin (Aspirin 300 Mg Supp) 81 mg IN DAILY ERIKA Stop: 11/07/25 08:59 Dextrose (Dextrose 50%-Water Inj 50 Ml Syringe) 25 ml IV Q15MIN PRN PRN Reason: BG 50-70 responsive npo pt Stop: 11/07/25 00:12 Dextrose (Dextrose 50%-Water Inj 50 Ml Syringe) 50 ml IV Q15MIN PRN PRN Reason: BG <50 OR BG <70 & pt unresponsive Stop: 11/07/25 00:12 Enoxaparin Sodium (Enoxaparin Sod Inj 40 Mg/0.4 Ml Syringe) 40 mg SC QDAY [facility] Stop: 10/22/25 08:59 Glucagon (Glucagon Inj 1 Mg Vial) 1 mg IM Q15MIN PRN PRN Reason: BG <70, and no IV access Sodium Chloride (Ns) 1,000 mls @ 100 mls/hr IV Q10H [facility] Stop: 11/06/25 21:14 Last Admin: 10/07/25 21:36 Dose: 100 mls/hr Documented By: THANG Insulin Human Lispro (Insulin Lispro (Admelog) 1 Unit/0.01 Ml Unit) 0 unit SC [facility]; Protocol Stop: 11/07/25 07:29 Labetalol HCl (Labetalol Inj 5 Mg/Ml Vial 4 Ml) 10 mg IVP Q15M PRN PRN Reason: hypertension Levetiracetam (Levetiracetam Inj 100 Mg/Ml Vial 5ml) 1,500 mg IVP BID [facility] Stop: 11/07/25 08:59 Ondansetron HCl (Ondansetron Inj 2 Mg/Ml Inj 2 Ml) 4 mg IVP Q4HR PRN PRN Reason: NAUSEA OR VOMITING Stop: 11/06/25 21:02 Phenytoin Sodium (Phenytoin Inj 50 Mg/Ml Vial 2 Ml) 100 mg IV TID [facility] Stop: 11/07/25 05:59 Discontinued Medications Phenytoin Sodium 1,500 mg/ (Sodium Chloride) 280 mls @ 280 mls/hr IV X1 ONE Stop: 10/07/25 22:59 Last Admin: 10/07/25 22:07 Dose: 280 mls/hr Documented By: AURORA Levetiracetam (Levetiracetam Inj 100 Mg/Ml Vial 5ml) 1,500 mg IVP X1 ONE Stop: 10/07/25 21:26 Last Admin: 10/07/25 21:41 Dose: 1,500 mg Documented By: THANG Phenytoin Sodium (Phenytoin Inj 50 Mg/Ml Vial 5 Ml) 1,500 mg IV X1 ONE Stop: 10/07/25 21:26 Last Admin: 10/07/25 22:59 Dose: Not Given Documented By: AURORA Non-Admin Reason: Discontinued See above if any. Consultations Consultation(s) initiated? (list below): Yes Consultation #1 (Physician, Specialty, Details): Telli-neurologist made aware of the patient?s HPI, PMHx, lab and/or radiology results. Discussed treatment plan. Will consult an admission to the hospitalist. Time: 21:24 Consultation #2 (Physician, Specialty, Details): Discussed with Dr. Muller for admission. Reviewed the patient?s HPI, PMHx, lab and/or radiology results. Discussed treatment plan. Will consult an admission to the hospitalist. Time: 23:23 Diagnosis Neuro Differential Diagnosis: convulsions, delirium, cerebrovascular accident, transient cerebral ischemia and other (Seizure) Most likely diagnosis given after review of the tests above:: Status epilepticus, Phoenix's paralysis Admission Indicated Admission indicated?: indicated Explain why admission is indicated or not indicated:: Status epilepticus, Phoenix's paralysis Admission Request Was there a request for admission?: Yes Admission Attestation Admission request attestation: Discussed case with [] from Hospitalist service regarding admission. Discussed patients ED course, exam findings, labs, and radiology results. The Hospitalist [agrees,declines] to accept the patient for admission. Disposition Plan Disposition Plan: Admit Critical Care Time Critical Care Time Critical Care Time: Yes Total Critical Care Time (min.): 40 Attestation: The high probability of sudden, clinically significant deterioration in the patient?s condition required the highest level of my preparedness to intervene urgently. The services I provided to this patient were to treat and/or prevent clinically significant deterioration. Services included the following: chart data review, reviewing nursing notes and/or old charts, documentation time, contract consultant collaboration regarding findings and treatment options, medication orders and management, direct patient care, vital sign assessments and ordering, interpreting and reviewing diagnostic studies and lab tests. Aggregate critical care time includes only time during which I was engaged in work directly related to the patient?s care, as described above, whether at bedside or elsewhere in the Emergency Department. It did not include time spent performing other reported procedures or the services of residents, students, nurses or physician assistants. Discharge Plan Plan Patient Disposition: Admit Acute Care w/in Hospital Prescriptions/Referrals Prescriptions/Med Rec: No Action trazodone 100 mg tablet 100 mg PO HS insulin degludec [Tresiba FlexTouch U-100] 100 unit/mL (3 mL) insulin pen 26 unit subcut QDAY Tradjenta 5 mg tablet 5 mg PO QDAY Patient Comments: TAKE 1 TABLET BY MOUTH EVERY DAY aspirin 81 mg capsule 81 mg PO QDAY clopidogrel [Plavix] 75 mg tablet 75 mg PO QDAY linaclotide 145 mcg capsule 145 mcg PO QAM sertraline 100 mg tablet 150 mg PO Q24H Patient Comments: TAKE 2 TABLETS BY MOUTH EVERY DAY pantoprazole 40 mg tablet,delayed release (DR/EC) 40 mg PO QDAY Patient Comments: TAKE 1 TABLET BY MOUTH EVERY DAY calcitriol 0.25 mcg capsule 0.25 mcg PO QDAY Patient Comments: TAKE 1 CAPSULE BY MOUTH EVERY DAY ferrous sulfate [Feosol] 325 mg (65 mg iron) tablet 325 mg PO BID levothyroxine 25 mcg capsule 25 mcg PO QDAY allopurinol 100 mg tablet 100 mg PO TID losartan 50 mg tablet 50 mg PO QDAY omega-3 fatty acids Capsule 600 mg PO QDAY Jardiance 10 mg tablet 10 mg PO QDAY pioglitazone 30 mg tablet 30 mg PO QDAY Problem List Clinical Impression: Status epilepticus, Phoenix's paralysis (postepileptic) Patient/Caregiver Discharge Instructions Print Language: Croatian
--- NOTE | 2025-10-07 21:04 | XR_ITS ---
Examination: CTA carotids with intravenous contrast CTA brain, head with intravenous contrast. 2-D sagittal, coronal reconstructions. 3-D reconstructions. Exam date and time: October 07, 2025, 2130 hours INDICATIONS: Stroke alert, onset focal neurologic deficit today CTDI: vol (mGy) 44.8 DLP: (mGycm) 586 Technique: Multiple CTA axial brain, head carotid images post intravenous contrast injection 75 cc, [id number]. 2-D sagittal, coronal reconstructions. 3-D reconstructions, 3-D post processing including vascular maximum intensity projection images. Low dose protocols were performed. One or more of the following dose reduction techniques were used; automated exposure control, adjustment of the mA and/or KV according to patient size, use of iterative reconstruction technique. Findings: Moderate calcification right carotid bifurcation, 20 to 40% stenosis right carotid bifurcation origin right internal carotid artery Moderate calcification left carotid bifurcation, 10 to 30% narrowing, carotid bifurcation or internal carotid artery Dominant left vertebral artery in the neck with no critical stenoses Intracranial vertebral arteries basilar artery posterior cerebral branches fill with no large vessel occlusions Petrous juxtasellar supraclinoid portions internal carotid arteries intact M1 segments middle cerebral arteries middle cerebral artery trifurcation vessels posterior cerebral branches do not show large vessel occlusions Multiple areas of irregularity right posterior cerebral artery IMPRESSION: No significant neck arterial stenoses No cerebral large vessel arterial occlusions or thrombus
--- NOTE | 2025-10-07 21:04 | XR_ITS ---
Examination: CT brain head without contrast. 2-D sagittal coronal reconstructions Date and time of exam: October 07, 2025, 2111 hours, comparison 06/18/2025 INDICATIONS: Stroke alert, onset focal neurologic deficit today, history stroke CTDI: vol (mGy): 51.8 DLP: (mGycm): 1090 Technique: Multiple CT axial sections of the brain have been obtained, 5 mm slice thickness. Contrast has not been administered. 2-D sagittal, coronal reconstructions have been obtained Low dose protocols were performed. One or more of the following dose reduction techniques were used; automated exposure control, adjustment of the mA and/or KV according to patient size, use of iterative reconstruction technique. Findings: No significant ventricular enlargement. Again noted encephalomalacia in the right temporal lobe Intra-axial or extra-axial hemorrhage density is not seen. No mass effect or midline shift Basal cisterns are not remarkable. Fourth ventricle is midline. Cranial vault intact. Impression: Negative for acute hemorrhage, mass effect or midline shift
--- NOTE | 2025-10-07 21:04 | XR_ITS ---
EXAMINATION: AP chest single view TECHNIQUE: AP portable upright chest single view Date and time: 05/07/2025 2133 hours, comparison 06/18/2025 INDICATIONS: Chest pain today, shortness of breath stroke protocol FINDINGS: Mild heart failure Moderate enlargement left ventricle Prominent vascular congestion Early septal edema at the lung bases IMPRESSION: Mild heart failure
--- NOTE | 2025-10-07 21:04 | EKG_ITS ---
[facility] Test Date: 2025-10-07 Pat Name: KIMBERLEY FULLER Department: Room: - Gender: Female Merchandising Intern: : 1955 Requested By: Lucien Nash Order Number: [id number] Reading MD: Lucien Nash Measurements Intervals [place] Rate: 87 P: 191 VT: 123 QRS: -37 QRSD: 105 T: 43 QT: 391 QTc: 471 Interpretive Statements ECTOPIC ATRIAL RHYTHM LEFT AXIS DEVIATION [QRS AXIS < -30] POSSIBLE ANTERIOR MYOCARDIAL INFARCTION , PROBABLY OLD [30 ms Q WAVE IN V3/V4, OR R < 0.2 mV IN V4] Compared to ECG 06/18/2025 15:32:20 Ectopic atrial rhythm now present Left-axis deviation now present Sinus tachycardia no longer present Myocardial infarct finding still present /store/S0/[id number]
[2025-10-07 21:07] VITALS: BP 185/80; PULSE 91; RESP 18; TEMP 36.6; O2SAT 100; O2SAT 99
[2025-10-07 21:08] VITALS: PULSE 106; PULSE 90; PULSE 91; RESP 22; O2SAT 99
--- NOTE | 2025-10-07 21:17 | ESCONSULT_ITS ---
Tele Neuro Consultation Consultation Date 10/07/25 Most Recent Vital Signs Last Vital Signs Temp 97.8 F 10/07/25 21:07 Pulse 91 10/07/25 21:07 Resp 18 10/07/25 21:07 BP 185/80 H 10/07/25 21:07 Pulse Ox 99 10/07/25 21:07 O2 Flow Rate 12 10/07/25 21:07 Consultation Narrative [facility] TeleNeurology Consult Services Patient Name:???Poornima Graves Date of :???1955 Identification Number:??? 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 Our recommendations are outlined below. Recommendations: ? Neuro Checks (Q1) ? Bedside Swallow Eval ? DVT Prophylaxis ? IV Fluids, Normal Saline ? Head of Bed 30 Degrees ? Euglycemia and Avoid Hyperthermia (PRN Acetaminophen) ? Aspirin per rectum ? Antihypertensives PRN if Blood pressure is greater than 220/120 or there is a concern for End organ damage/contraindications for permissive HTN. If blood pressure is greater than 220/120 give labetalol PO or IV or Vasotec IV with a goal of 15% reduction in BP during the first 24 hours. ?Keppra 1500mg IV load x 1 now and then continue at 1500mg BID ?Fosphenytoin (or phenytoin if unavailable) load 15mg / kg x 1 now, charly nue thereafter with phenytoin 100mg TID ?Stat, continuous EEG monitoring ?Seizure precautions ?Neurology follow up recommended. Sign Out: ? Discussed with Emergency Department Provider Advanced Imaging:Advanced imaging has been ordered. Results pending. Advanced Imaging not obtained at this time. Reason: suspected nonconvulsive status epilepticus Metrics: Last Known Well: 10/07/2025 17:00:00 Arrival Time: 10/07/2025 21:00:00 Activation Time: 10/07/2025 20:56:18 Initial Response Time: 10/07/2025 21:04:04 ETA Time reported by hospital: 9 Minutes.Symptoms: seizure, post-ictal left hemiparesis. Initial patient interaction: 10/07/2025 21:18:35 NIHSS Assessment Completed: 10/07/2025 21:21:42Patient is not a candidate for Thrombolytic. Thrombolytic Medical Decision: 10/07/2025 21:21:43Patient was not deemed candidate for Thrombolytic because of following reasons: Seizure at onset with postictal residual neurological impairments . CT Head: I personally reviewed all the CT images that were available to me and it showed: right temporal encephalomalacia, no acute findings pending radiology review. Images were unavailable to me at the time of the exam, and I personally reviewed the study with attending radiologist. Primary Provider Notified of Diagnostic Impression and Management Plan on: 10/07/2025 21:24:21 History of Present Illness:Patient is a 70 year old Female. Patient was brought by EMS for symptoms of seizure, post-ictal left hemiparesis. The patient presents after family found her having generalized convulsive seizure in her chair. Following that she was lethargic, less responsive and EMS were called. On their evaluation they noted left sided weakness as well. Patient has history of stroke with unclear deficits residually other than apparently chronic incontinence per records. She has history of prior seizures as well including notably a hospitalization in 06/2025. She is currently lethargic and on nonrebreather due to hypoxia. ? Past Medical History: ?Hypertension ?Diabetes Mellitus ?Hyperlipidemia ?Stroke ?Seizures Other PMH:? left bka Medications: No Anticoagulant use? Antiplatelet use:?Yes?asa, plavix Reviewed EMR for current medications Other Medications Pertinent To Assessment Include: Keppra 500mg qam and 1000mg qpm Allergies:? Reviewed Social History: Smoking: No Alcohol Use: No Drug Use: No Family History: There is no family history of premature cerebrovascular disease pertinent to this consultation ROS : 14 Points Review of Systems was performed and was negative except mentioned in HPI. Past Surgical History: There Is No Surgical History Contributory To Today?s Visit ? Examination: BP(225/96),?Pulse(89),?Blood Glucose(226) 1A: Level of Consciousness - Requires repeated stimulation to arouse?+ 2 1B: Ask Month and Age - Could Not Answer Either Question Correctly?+ 2 1C: Blink Eyes & Squeeze Hands - Performs 0 Tasks?+ 2 2: Test Horizontal Extraocular Movements - Forced Gaze Palsy: Cannot Be Overcome ?+ 2 3: Test Visual [place] - Partial Hemianopia?+ 1 4: Test Facial Palsy (Use Grimace if Obtunded) - Partial paralysis (lower face)? + 2 5A: Test Left Arm Motor Drift - No Movement?+ 4 5B: Test Right Arm Motor Drift - Some Effort Against [place]?+ 2 6A: Test Left Leg Motor Drift - Amputation/Joint Fusion?+ 0 6B: Test Right Leg Motor Drift - Some Effort Against [place]?+ 2 7: Test Limb Ataxia (FNF/Heel-[place]) - Does Not Understand?+ 0 8: Test Sensation - Mild-Moderate Loss: Can Sense Being Touched?+ 1 9: Test Language/Aphasia - Mute/Global Aphasia: No Usable Speech/Auditory Comprehension?+ 3 10: Test Dysarthria - Mute/Anarthric?+ 2 11: Test Extinction/Inattention - Visual/tactile/auditory/spatial/personal inattention?+ 1 NIHSS Score:?26 NIHSS Free Text :?leftward gaze/left hemiparesis Pre-Morbid Modified [place] Scale: Unable to assess Spoke with :?Dr Zaldivar This consult was conducted in real time using interactive audio and video technology. Patient was informed of the technology being used for this visit and agreed to proceed. Patient located in hospital and provider located at home/office setting. Patient is being evaluated for possible acute neurologic impairment and high probability of imminent or life-threatening deterioration. I spent total of 35 minutes providing care to this patient, including time for face to face visit via telemedicine, review of medical records, imaging studies and discussion of findings with providers, the patient and/or family. Dr Florentino Mcmillan [facility] For Inpatient follow-up with [facility] physician please call [facility] at . As we are not an outpatient service for any post hospital discharge needs please contact the hospital for assistance. If you have any questions for the [facility] physicians or need to reconsult for clinical or diagnostic changes please contact us via [facility] at . Non-radiologist review of imaging performed to assist with emergent clinical decision-making. Remote physician workstations do not possess the same resolution, calibration, or diagnostic capabilities as hospital-based radiology reading stations, and formal radiologist read is necessary. Signature :Geovanna Mcmillan
[2025-10-07 21:26] LABS: Basophils # (Auto) 0.1 Thou/mm3 (0.0-0.2); Basophils % (Auto) 1 % (0-2.5); Eosinophils # (Auto) 0.1 Thou/mm3 (0.0-0.5); Eosinophils % (Auto) 2 % (0-10); Hematocrit 30.4 % (36.0-46.0); Hemoglobin 9.9 g/dL (12.0-16.0); Immature Granulocytes Auto 0.06 Thou/mm3 (0.00-0.00); Lymphocytes # (Auto) 3.0 Thou/mm3 (1.0-4.8); Lymphocytes % (Auto) 35 % (10-50); Mean Corpuscular HGB Conc 32.6 g/dl (31.0-37.0); Mean Corpuscular Hemoglobin 30.0 pg (25.0-35.0); Mean Corpuscular Volume 92 fL (80-100); Monocytes # (Auto) 0.4 Thou/mm3 (0.0-0.8); Monocytes % (Auto) 5 % (0-12); Neutrophils # (Auto) 4.8 Thou/mm3 (1.8-7.7); Neutrophils % (Auto) 57 % (37-80); Nucleated Red Blood Cell # 0.00 Thou/mm3 (0.00-0.00); Nucleated Red Blood Cell % 0 /100 WBC (0); Platelet Count 307 Thou/mm3 (140-440); RDW Standard Deviation 45.2 fL (36.4-46.3); Red Blood Count 3.30 Miln/mm3 (4.00-5.20); White Blood Count 8.5 Thou/mm3 (3.6-11.0)
[2025-10-07 21:29] VITALS: BMI 35.5
[2025-10-07] MEDS: SODIUM CHLORIDE 0.9% 1000 ML 1,000 ML 100 ML IV (21:36)
[2025-10-07 21:37] LABS: Collection Type, Urine Catheter
[2025-10-07 21:40] LABS: INR 0.9 (0.9-1.3); Partial Thromboplastin Time 23.2 Seconds (22.0-36.0); Prothrombin Time 10.1 Seconds (9.0-12.2)
[2025-10-07] MEDS: levETIRAcetam INJ 100 MG/ML VIAL 5ML 1500 MG IVP (21:41)
[2025-10-07 21:42] LABS: B-Type Natriuretic Peptide 66 pg/mL (0-100)
[2025-10-07 21:50] VITALS: BP 188/81; PULSE 82; RESP 13; TEMP 37; O2SAT 95
[2025-10-07 21:56] LABS: Bacteria,Urine 1+; Bilirubin,Urine Negative (Negative); Blood,Urine Negative (Negative); Clarity,Urine Clear (Clear/Hazy); Color,Urine Lt-Yellow (Lt Yel-Yel); Glucose, Urine 4+ (Negative); Ketones,Urine Negative (Negative); Leukocyte Esterase,Urine Negative (Negative); Nitrite,Urine Negative (Negative); PH,Urine 6.0 (5.0-7.0); Protein,Urine 1+ (Neg - Trace); RBC,Urine 1 /hpf (0-3); Specific Gravity,Urine 1.024 (1.001-1.035); Squamous Epithelial Cell,Urine < 1 /hpf (0-5); Urobilinogen,Urine Negative mg/dL (0.0-1.0); WBC,Urine 7 /hpf (0-5)
[2025-10-07 21:57] LABS: Culture Indicated,Urine Yes
[2025-10-07 21:57] LABS: Amphetamine/Methamp Scrn,U Negative (Negative); Barbiturate Screen,Urine Negative (Negative); Benzodiazepines Screen,Urine Negative (Negative); Benzoylecgonine Screen, Ur Negative (Negative); Fentanyl Screen,Urine Negative (Negative); HCG Titer if Positive Negative; Opiate Screen,Urine Negative (Negative); THC Screen,Urine Negative (Negative)
[2025-10-07 22:12] LABS: Alanine Aminotransferase 9 U/L (10-49); Albumin, Serum 3.7 gm/dL (3.4-4.8); Albumin/Globulin Ratio 1.4 (1.2-2.2); Alcohol, Blood Medical < 3.0 mg/dL (0-10.0); Alkaline Phosphatase 87 U/L (46-116); Anion Gap 16 (7-16); Aspartate Amino Transferase < 8 U/L (0-34); BUN/Creatinine Ratio 12 Ratio (12-20); Bilirubin,Total 0.2 mg/dL (0.3-1.2); Blood Urea Nitrogen 23 mg/dL (9-23); Calcium 9.0 mg/dL (8.3-10.6); Calcium (Corrected) 9.2 mg/dL (8.5-10.1); Carbon Dioxide 19.3 mMol/L (20.0-31.0); Chloride 105 mMol/L (98-107); Creatinine (Component) 2.0 mg/dL (0.6-1.3); Estimated Creatinine Clearance 31.6 mL/min (>60); Globulin 2.7 gm/dL (2.3-3.5); Glucose 261 mg/dL (74-106); Magnesium 1.7 mg/dL (1.6-2.6); Osmolality,Calculated 292 (275-295); Potassium 3.6 mMol/L (3.4-5.1); Sodium 140 mMol/L (136-145); Total Protein 6.4 gm/dL (5.7-8.2); Troponin I < 0.020 ng/mL (0.0-0.045); eGFR 27 See Note
[2025-10-07 22:43] VITALS: BP 168/76; PULSE 64; PULSE 66; RESP 15; TEMP 37.1; O2SAT 92
[2025-10-07 23:57] VITALS: BP 163/67; PULSE 70; RESP 11; TEMP 36.8; O2SAT 98
[2025-10-08] VITALS (8 sets, daily range): BP systolic 124–162; BP diastolic 61–77; PULSE 52–69; RESP 12–19; TEMP 36.1–37.1; O2SAT 93–97
--- NOTE | 2025-10-08 00:14 | ESHP_ITS ---
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 During the gathering of the history of the patient was somnolent but able to communicate. The patient described the episode as a 15-minute period of not feeling like herself. She mentions that she was able to hear her sister talking to her but was unable to respond or understand what she was saying. After the 15 minutes the patient returned to baseline of being able to see and hear normally. She denied loss of consciousness or loss of control of her bowel or bladder. It was reported that she had 3 successive seizures, 1 at home and 2 en route by EMS without lucid interval. Versed was given in the field following second seizure. It was reported that the patient was notably moving her right side and flaccid on the left and thereby stroke was suspected. Upon arrival the patient was reported to be deeply somnolent and minimally arouasble, nonverbal, and had a GCS of 3 with sonorous respirations. Stroke alert was called on arrival. Head CT was negative for acute changes. She was found to have no focal neurological deficits on exam. Patient received a loading dose of Keppra, phenytoin, and a liter of normal saline in the ED. Teleneuro recommended continuous EEG monitoring. Patient was admitted for breakthrough seizures and stroke rule out. ED Course: * Significant vitals on arrival: BP 185/80, saturating 100% on 12 L oxy mask, remainder vitals within normal parameters. * Significant labs: Hemoglobin 9.9, hematocrit 30.4, bicarb 19.3, creatinine 2.0, BUN 23 * Imaging: * Chest x-ray showed prominent vascular congestion, mild heart failure, moderate enlargement of left ventricle. * Head CT showed encephalomalacia in the right temporal lobe, no acute hemorrhage. * Head neck CTA showed bilateral internal carotid calcification, 20-40% stenosis on the right and 10-30% stenosis on the left. No cerebral large vessel arterial occlusions or thrombi. * EKG detected an ectopic atrial rhythm though P wave morphology appears consistent, rate of 87, QTc 471. * Urine: 1+ protein, 4+ glucose, 7 WBC, 1+ bacteria * ED intervention: Patient received 1 L normal saline, 1500 mg Keppra, 1500 mg phenytoin. History: * Past medical history: As above in HPI * Surgical history: Cholecystectomy, 2 C-sections * Social history: Denies alcohol tobacco or illicit drug use Allergies: * No known drug allergies. Home Medications: (Pending Med Rec) * Allopurinol 100 mg p.o. 3 times daily * Aspirin 81 mg daily * Atorvastatin 80 mg daily * Calcitriol 0.25 mcg daily * Plavix 75 mg daily * Ferrous sulfate 325 mg p.o. twice a day * Insulin degludec 26 units daily * Jardiance 10 mg p.o. daily * Levothyroxine 25 mcg daily * Linaclotide 145 mcg daily * Losartan 50 mg daily * Kremlin-3 fatty acid 600 mg daily * Pantoprazole 40 mg daily * Pioglitazone 30 mg daily * Sertraline 150 mg daily * Tradjenta 5 mg daily * Trazodone 100 mg nightly * Keppra 1000 mg nightly, 500 mg every morning CODE STATUS: DO NOT INTUBATE, Resuscitation okay Review of Systems Review of Systems Narrative Review of Systems: Review of Systems: * General: Denies fevers, chills. * HEENT: Denies headache, congestion, or sore throat. * Cardiac: Denies chest pain or palpitations. * Pulmonary: Denies shortness of breath or cough. * GI: Denies nausea, vomiting, diarrhea, constipation, melena, or hematochezia. * : Denies dysuria, hematuria, frequency, or urgency. * MSK: Denies pain in the extremities, joints, or myalgias. * Neuro: Described a 15-minute episode of not feeling like herself 2-3 hours before arrival where she was unable to interpret conversations that she was hearing, eventually returned to normal, denied loss of consciousness. Denied weakness, numbness, vision changes, or speech difficulty. Exam Vital Signs Temp Pulse Resp BP Pulse Ox O2 Del Method O2 Flow Rate 98.2 F 70 11 L 163/67 H 98 Oxy Mask 12 10/07/25 23:57 10/07/25 23:57 10/07/25 23:57 10/07/25 23:57 10/07/25 23:57 10/07/25 21:07 10/07/25 21:07 Narrative Exam General: Somnolent. No acute distress. Conversational and non-toxic appearing. Neurologic: GCS 13: Opens eyes to verbal command (+3), confused (+4), obeys commands (+6). Alert and oriented to self, disoriented to place and time. No gross neurological deficit, and patient able to move all 4 extremities. HEENT: Normocephalic, atraumatic, mucous membranes moist. Pupils reactive to light. Heart: Regular rate and rhythm, normal S1 and S2, no murmurs. Lungs: Clear to auscultation bilaterally with no wheezing or crackles. Abdomen: Obese. Soft, nondistended, nontender, positive bowel sounds. No guarding or rebound tenderness. Extremities: No edema. 2+ radial and dorsalis pedis pulses bilaterally. Skin: Warm. Dry. No rash or ecchymoses. : Riddle in place. Results: Labs 10/08/25 01:51 10/08/25 01:51 Labs: Short CBC 10/07/25 Range/Units 21:19 WBC 8.5 (3.6-11.0) Thou/mm3 Hgb 9.9 L (12.0-16.0) g/dL Hct 30.4 L (36.0-46.0) % Plt Count 307 (140-440) Thou/mm3 BMP 10/07/25 21:19 Sodium 140 Potassium 3.6 Chloride 105 Carbon Dioxide 19.3 L BUN 23 Creatinine 2.0 H Glucose 261 H Calcium 9.0 Cardiac Enzymes 10/07/25 Range/Units 21:19 Troponin I < 0.020 (0.0-0.045) ng/mL Liver Function 10/07/25 Range/Units 21:19 Total Bilirubin 0.2 L (0.3-1.2) mg/dL AST < 8 (0-34) U/L ALT 9 L (10-49) U/L Alkaline Phosphatase 87 (46-116) U/L Albumin 3.7 (3.4-4.8) gm/dL Urine 10/07/25 Range/Units 12:30 Urine Color Lt-Yellow (Lt Yel-Yel) Urine Clarity Clear (Clear/Hazy) Urine pH 6.0 (5.0-7.0) Ur Specific [place] 1.024 (1.001-1.035) Urine Protein 1+ A (Neg - Trace) Urine Glucose (UA) 4+ A (Negative) Quality Measures Quality Measures stroke Suspected type of Stroke: Unknown at this time Tenecteplase given: Reason(s) Tenecteplase not given: Siezure at onset with post-ictal neuro impairment not given Rehab services: PT evaluation ordered VTE Prophylaxis: pharmaceutical Antithrombotic by day 2:: ordered Statin ordered: >75 y/o moderate or high intensity dose Anticoagulation ordered for A-fib or flutter (current or hx): not indicated Advance care planning discussed with:: patient Medications Home Medications and Allergies Home Medications ?Medication ?Instructions ?Recorded ?Confirmed ?Type allopurinol 100 mg tablet 100 mg PO TID 06/18/2506/18 History aspirin 81 mg capsule 81 mg PO QDAY 06/18/2506/18 History calcitriol 0.25 mcg capsule 0.25 mcg PO QDAY 06/18/25 06/18/25 History clopidogrel 75 mg tablet (Plavix) 75 mg PO QDAY 06/18/25 History empagliflozin 10 mg tablet 10 mg PO QDAY 06/18/2505/05 History (Jardiance) ferrous sulfate 325 mg (65 mg 325 mg PO BID 06/18/25 0 06/18/25 History iron) tablet (Feosol) insulin degludec 100 unit/mL (3 26 unit subcut QDAY 06/18/25 History mL) subcutaneous pen (Tresiba FlexTouch U-100 insulin) levothyroxine 25 mcg capsule 25 mcg PO QDAY 06/18/25 0 06/18/25 History linaclotide 145 mcg capsule 145 mcg PO QAM 06/18/25 History linagliptin 5 mg tablet (Tradjenta) 5 mg PO QDAY 06/1806/18/25 History losartan 50 mg tablet 50 mg PO QDAY 06/18/2506/18 History omega-3 fatty acids 600 mg PO QDAY 06/18/2505/05 History pantoprazole 40 mg tablet,delayed 40 mg PO QDAY 06/18/25 History release pioglitazone 30 mg tablet 30 mg PO QDAY 06/18/2506/18 History sertraline 100 mg tablet 150 mg PO Q24H 06/18/2505/05 History trazodone 100 mg tablet 100 mg PO HS 06/18/25 History Allergies Allergy/AdvReac Type Severity Reaction Status Date / Time No Known Allergies Allergy Verified 06/18/25 15:27 Visit Medications Acetaminophen (Acetaminophen 325 Mg Tablet) 650 mg PO Q6H PRN PRN Reason: Fever >100.4 Stop: 11/07/25 00:03 Aspirin (Aspirin 300 Mg Supp) 81 mg HI DAILY [facility] Stop: 11/07/25 08:59 Dextrose (Dextrose 50%-Water Inj 50 Ml Syringe) 25 ml IV Q15MIN PRN PRN Reason: BG 50-70 responsive npo pt Stop: 11/07/25 00:12 Dextrose (Dextrose 50%-Water Inj 50 Ml Syringe) 50 ml IV Q15MIN PRN PRN Reason: BG <50 OR BG <70 & pt unresponsive Stop: 11/07/25 00:12 Enoxaparin Sodium (Enoxaparin Sod Inj 40 Mg/0.4 Ml Syringe) 40 mg SC QDAY [facility] Stop: 10/22/25 08:59 Glucagon (Glucagon Inj 1 Mg Vial) 1 mg IM Q15MIN PRN PRN Reason: BG <70, and no IV access Sodium Chloride (Ns) 1,000 mls @ 100 mls/hr IV Q10H [facility] Stop: 11/06/25 21:14 Last Admin: 10/07/25 21:36 Dose: 100 mls/hr Insulin Human Lispro (Insulin Lispro (Admelog) 1 Unit/0.01 Ml Unit) 0 unit SC [facility]; Protocol Stop: 11/07/25 07:29 Labetalol HCl (Labetalol Inj 5 Mg/Ml Vial 4 Ml) 10 mg IVP Q15M PRN PRN Reason: hypertension Levetiracetam (Levetiracetam Inj 100 Mg/Ml Vial 5ml) 1,500 mg IVP BID [facility] Stop: 11/07/25 08:59 Ondansetron HCl (Ondansetron Inj 2 Mg/Ml Inj 2 Ml) 4 mg IVP Q4HR PRN PRN Reason: NAUSEA OR VOMITING Stop: 11/06/25 21:02 Phenytoin Sodium (Phenytoin Inj 50 Mg/Ml Vial 2 Ml) 100 mg IV TID ERIKA Stop: 11/07/25 05:59 Discontinued Medications Phenytoin Sodium 1,500 mg/ (Sodium Chloride) 280 mls @ 280 mls/hr IV X1 ONE Stop: 10/07/25 22:59 Last Admin: 10/07/25 22:07 Dose: 280 mls/hr Levetiracetam (Levetiracetam Inj 100 Mg/Ml Vial 5ml) 1,500 mg IVP X1 ONE Stop: 10/07/25 21:26 Last Admin: 10/07/25 21:41 Dose: 1,500 mg Phenytoin Sodium (Phenytoin Inj 50 Mg/Ml Vial 5 Ml) 1,500 mg IV X1 ONE Stop: 10/07/25 21:26 Last Admin: 10/07/25 22:59 Dose: Not Given Assessment & Plan Plan Summary: 70-year-old female past medical history of insulin-dependent type 2 diabetes, diabetic nephropathy status post left BKA, CVA in December 2024 on PLAVIX/ASPIRIN with residual bowel and bladder incontinence, seizure disorder on KEPPRA, hypothyroidism, chronic constipation, CKD, hypertension, hyperlipidemia, gout, and depression/anxiety disorder who presented to the ED in the evening of 10/07/2025 after a seizure. It was reported that she had 3 successive seizures, 1 at home and 2 en route by EMS without lucid interval. Versed was given in the field following second seizure. It was reported that the patient was notably moving her right side and flaccid on the left and thereby stroke was suspected. Upon arrival the patient was reported to be deeply somnolent and minimally arouasble, nonverbal, and had a GCS of 3 with sonorous respirations. Stroke alert was called on arrival. Patient was admitted for breakthrough seizures and stroke rule out. #Breakthrough Seizure #History of Seizure disorder #Stroke rule out * Patient presented after having 3 successive seizures, 1 at home and 2 and route per EMS, Versed was given in the field after the second seizure * Reportedly there was no loss of bowel or bladder control, no tongue biting, no lucid interval * Reportedly the patient had a GCS of 3 on arrival, GCS 13 on admission * Reportedly the patient's left upper extremity was flaccid on arrival, stroke alert was called, head CT was negative for acute changes, previously established right temporal encephalomalacia. * NIHSS score 3: Arouses to repeated stimulation (+2), disoriented to time and place (+1) * Patient had no focal neurological deficits on exam. * Patient takes and has been compliant with Keppra 1000 mg nightly, 500 mg every morning, and still experienced a breakthrough seizure. Difficult to identify a precipitating factor at this time. Plan: * Telemetry neuro consulted * Patient passed swallow eval, able to take oral meds * Keppra 1500 mg twice daily * Phenytoin 100 mg 3 times daily * Lorazepam 2 mg IV push as needed every 30 minutes for breakthrough seizures * Continuous EEG monitoring * MRI brain ordered * Neurochecks every 4 hours * Aspiration and seizure precautions * Lipid panel pending * A1c pending * Permissive hypertension for the first 24 hours, labetalol 10 mg IV push as needed for SBP greater than or equal to 180, DBP greater than or equal to 105 * Echo ordered * Neurology consulted #Insulin-dependent type 2 diabetes #Status post left below-knee amputation #Diabetic nephropathy * Patient takes 26 units degludec, empagliflozin, semaglutide at home * Patient's left below-knee amputation showed no abnormalities on physical exam Plan: * Carb consistent diet * Insulin sliding scale #Previous CVA on Aspirin and Plavix * Patient reportedly had a CVA in December 2024 and is currently taking aspirin and Plavix * Patient reportedly has residual bladder and bowel incontinence, denied either of these on admission Plan: * Aspirin 81 mg daily * Plavix 75 mg daily #UTI * Urinalysis showed 7 WBCs, 1+ bacteria * Patient denied dysuria, urgency, or frequency Plan: * Urine culture ordered #ALLYN on CKD * Patient presented with a creatinine of 2.0, baseline appears to be around 1.5 * May be secondary to seizure or decreased oral intake Plan: * Patient received a liter of fluids in the ED * Avoid NSAIDs and nephrotoxic agents * Renally dose medications #Hypertension Stage II * Patient presented with BP 185/80 * Patient takes losartan 50 mg daily Plan: * Permissive hypertension for the first 24 hours after admission * Consider restarting home losartan after 24 hours #Hypothyroidism * Per patient history Plan: * Levothyroxine 25 mcg daily #Hyperlipidemia * Per patient history * Repeat lipid panel pending Plan: * Atorvastatin 80 mg nightly #Gout * Per patient history Plan: * Allopurinol 100 mg daily #Anxiety/Depression * Per patient history Plan: * Consider restarting home sertraline after med rec #Chronic Normocytic Anemia * Patient presented with hemoglobin 11, MCV 91 * Appears to be a chronic issue based on previous hemoglobin levels * Consider anemia of chronic disease versus iron deficiency. Iron deficiency is more likely due to a normal MCV * No concern for active bleeding at this time, platelets 196 Plan: * No direct intervention at this time * Consider iron panel Hospital Maintenance: DVT ppx: Lovenox 40 mg subcu daily Diet: Carb consistent IV lines: Peripheral IVs Riddle: In place Code status: DO NOT INTUBATE, Resuscitation okay Dispo: Telemetry monitoring floor, admitted for breakthrough seizure, continuous EEG monitoring, neurochecks every 4, pending brain MRI, neurology consulted, urine culture pending. Patient was seen and discussed with my attending physician Dr. Krishan ALANIZ and my senior resident Dr. Shanita ALANIZ PGY-2. Vik Baptiste DO PGY-1. Attending Provider Attestation/Addendum I have examined the patient, reviewed labs and imaging findings, discussed the case with the resident(s), and reviewed entered orders. I agree with the plan of care as outlined in this note, with these additional summaries/recommendations: 70-year-old female with past medical history of DM on insulin complicated by left BKA, hypothyroidism, CVA complicated by seizure disorder, who presented to the ED with chief complaint of breakthrough seizures despite being on at home Keppra regimen. Unknown trigger at this time, initial workup otherwise negative for infectious or acute CVA. Will admit for further close monitoring with EEG and titration/adjustment to her antiepileptic regimen. Dominick Nickerson MD
--- NOTE | 2025-10-08 00:14 | PD.RESHP ---
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 During the gathering of the history of the patient was somnolent but able to communicate. The patient described the episode as a 15-minute period of not feeling like herself. She mentions that she was able to hear her sister talking to her but was unable to respond or understand what she was saying. After the 15 minutes the patient returned to baseline of being able to see and hear normally. She denied loss of consciousness or loss of control of her bowel or bladder. It was reported that she had 3 successive seizures, 1 at home and 2 en route by EMS without lucid interval. Versed was given in the field following second seizure. It was reported that the patient was notably moving her right side and flaccid on the left and thereby stroke was suspected. Upon arrival the patient was reported to be deeply somnolent and minimally arouasble, nonverbal, and had a GCS of 3 with sonorous respirations. Stroke alert was called on arrival. Head CT was negative for acute changes. She was found to have no focal neurological deficits on exam. Patient received a loading dose of Keppra, phenytoin, and a liter of normal saline in the ED. Teleneuro recommended continuous EEG monitoring. Patient was admitted for breakthrough seizures and stroke rule out. ED Course: Significant vitals on arrival: BP 185/80, saturating 100% on 12 L oxy mask, remainder vitals within normal parameters. Significant labs: Hemoglobin 9.9, hematocrit 30.4, bicarb 19.3, creatinine 2.0, BUN 23 Imaging: Chest x-ray showed prominent vascular congestion, mild heart failure, moderate enlargement of left ventricle. Head CT showed encephalomalacia in the right temporal lobe, no acute hemorrhage. Head neck CTA showed bilateral internal carotid calcification, 20-40% stenosis on the right and 10-30% stenosis on the left. No cerebral large vessel arterial occlusions or thrombi. EKG detected an ectopic atrial rhythm though P wave morphology appears consistent, rate of 87, QTc 471. Urine: 1+ protein, 4+ glucose, 7 WBC, 1+ bacteria ED intervention: Patient received 1 L normal saline, 1500 mg Keppra, 1500 mg phenytoin. History: Past medical history: As above in HPI Surgical history: Cholecystectomy, 2 C-sections Social history: Denies alcohol tobacco or illicit drug use Allergies: No known drug allergies. Home Medications: (Pending Med Rec) Allopurinol 100 mg p.o. 3 times daily Aspirin 81 mg daily Atorvastatin 80 mg daily Calcitriol 0.25 mcg daily Plavix 75 mg daily Ferrous sulfate 325 mg p.o. twice a day Insulin degludec 26 units daily Jardiance 10 mg p.o. daily Levothyroxine 25 mcg daily Linaclotide 145 mcg daily Losartan 50 mg daily Hope-3 fatty acid 600 mg daily Pantoprazole 40 mg daily Pioglitazone 30 mg daily Sertraline 150 mg daily Tradjenta 5 mg daily Trazodone 100 mg nightly Keppra 1000 mg nightly, 500 mg every morning CODE STATUS: DO NOT INTUBATE, Resuscitation okay Review of Systems Review of Systems Narrative Review of Systems: Review of Systems: General: Denies fevers, chills. HEENT: Denies headache, congestion, or sore throat. Cardiac: Denies chest pain or palpitations. Pulmonary: Denies shortness of breath or cough. GI: Denies nausea, vomiting, diarrhea, constipation, melena, or hematochezia. : Denies dysuria, hematuria, frequency, or urgency. MSK: Denies pain in the extremities, joints, or myalgias. Neuro: Described a 15-minute episode of not feeling like herself 2-3 hours before arrival where she was unable to interpret conversations that she was hearing, eventually returned to normal, denied loss of consciousness. Denied weakness, numbness, vision changes, or speech difficulty. Exam Vital Signs Temp Pulse Resp BP Pulse Ox O2 Del Method O2 Flow Rate 98.2 F 70 11 L 163/67 H 98 Oxy Mask 12 10/07/25 23:57 10/07/25 23:57 10/07/25 23:57 10/07/25 23:57 10/07/25 23:57 10/07/25 21:07 10/07/25 21:07 Narrative Exam General: Somnolent. No acute distress. Conversational and non-toxic appearing. Neurologic: GCS 13: Opens eyes to verbal command (+3), confused (+4), obeys commands (+6). Alert and oriented to self, disoriented to place and time. No gross neurological deficit, and patient able to move all 4 extremities. HEENT: Normocephalic, atraumatic, mucous membranes moist. Pupils reactive to light. Heart: Regular rate and rhythm, normal S1 and S2, no murmurs. Lungs: Clear to auscultation bilaterally with no wheezing or crackles. Abdomen: Obese. Soft, nondistended, nontender, positive bowel sounds. No guarding or rebound tenderness. Extremities: No edema. 2+ radial and dorsalis pedis pulses bilaterally. Skin: Warm. Dry. No rash or ecchymoses. : Riddle in place. Results: Labs 10/08/25 01:51 10/08/25 01:51 Labs: Short CBC 10/07/25 Range/Units 21:19 WBC 8.5 (3.6-11.0) Thou/mm3 Hgb 9.9 L (12.0-16.0) g/dL Hct 30.4 L (36.0-46.0) % Plt Count 307 (140-440) Thou/mm3 BMP 10/07/25 21:19 Sodium 140 Potassium 3.6 Chloride 105 Carbon Dioxide 19.3 L BUN 23 Creatinine 2.0 H Glucose 261 H Calcium 9.0 Cardiac Enzymes 10/07/25 Range/Units 21:19 Troponin I < 0.020 (0.0-0.045) ng/mL Liver Function 10/07/25 Range/Units 21:19 Total Bilirubin 0.2 L (0.3-1.2) mg/dL AST < 8 (0-34) U/L ALT 9 L (10-49) U/L Alkaline Phosphatase 87 (46-116) U/L Albumin 3.7 (3.4-4.8) gm/dL Urine 10/07/25 Range/Units 12:30 Urine Color Lt-Yellow (Lt Yel-Yel) Urine Clarity Clear (Clear/Hazy) Urine pH 6.0 (5.0-7.0) Ur Specific [place] 1.024 (1.001-1.035) Urine Protein 1+ A (Neg - Trace) Urine Glucose (UA) 4+ A (Negative) Quality Measures Quality Measures stroke Suspected type of Stroke: Unknown at this time Tenecteplase given: Reason(s) Tenecteplase not given: Siezure at onset with post-ictal neuro impairment not given Rehab services: PT evaluation ordered VTE Prophylaxis: pharmaceutical Antithrombotic by day 2:: ordered Statin ordered: >75 y/o moderate or high intensity dose Anticoagulation ordered for A-fib or flutter (current or hx): not indicated Advance care planning discussed with:: patient Medications Home Medications and Allergies Home Medications ?Medication ?Instructions ?Recorded ?Confirmed ?Type allopurinol 100 mg tablet 100 mg PO TID 06/18/25 06/18/25 History aspirin 81 mg capsule 81 mg PO QDAY 06/18/25 06/18/25 History calcitriol 0.25 mcg capsule 0.25 mcg PO QDAY 06/18/25 06/18/25 History clopidogrel 75 mg tablet (Plavix) 75 mg PO QDAY 06/18/25 06/18/25 History empagliflozin 10 mg tablet 10 mg PO QDAY 06/18/25 06/18/25 History (Jardiance) ferrous sulfate 325 mg (65 mg 325 mg PO BID 06/18/25 06/18/25 History iron) tablet (Feosol) insulin degludec 100 unit/mL (3 26 unit subcut QDAY 06/18/25 06/18/25 History mL) subcutaneous pen (Tresiba FlexTouch U-100 insulin) levothyroxine 25 mcg capsule 25 mcg PO QDAY 06/18/25 06/18/25 History linaclotide 145 mcg capsule 145 mcg PO QAM 06/18/25 06/18/25 History linagliptin 5 mg tablet (Tradjenta) 5 mg PO QDAY 06/18/25 06/18/25 History losartan 50 mg tablet 50 mg PO QDAY 06/18/25 06/18/25 History omega-3 fatty acids 600 mg PO QDAY 06/18/25 06/18/25 History pantoprazole 40 mg tablet,delayed 40 mg PO QDAY 06/18/25 06/18/25 History release pioglitazone 30 mg tablet 30 mg PO QDAY 06/18/25 06/18/25 History sertraline 100 mg tablet 150 mg PO Q24H 06/18/25 06/18/25 History trazodone 100 mg tablet 100 mg PO HS 06/18/25 06/18/25 History Allergies Allergy/AdvReac Type Severity Reaction Status Date / Time No Known Allergies Allergy Verified 06/18/25 15:27 Visit Medications Acetaminophen (Acetaminophen 325 Mg Tablet) 650 mg PO Q6H PRN PRN Reason: Fever >100.4 Stop: 11/07/25 00:03 Aspirin (Aspirin 300 Mg Supp) 81 mg [place] DAILY [facility] Stop: 11/07/25 08:59 Dextrose (Dextrose 50%-Water Inj 50 Ml Syringe) 25 ml IV Q15MIN PRN PRN Reason: BG 50-70 responsive npo pt Stop: 11/07/25 00:12 Dextrose (Dextrose 50%-Water Inj 50 Ml Syringe) 50 ml IV Q15MIN PRN PRN Reason: BG <50 OR BG <70 & pt unresponsive Stop: 11/07/25 00:12 Enoxaparin Sodium (Enoxaparin Sod Inj 40 Mg/0.4 Ml Syringe) 40 mg SC QDAY [facility] Stop: 10/22/25 08:59 Glucagon (Glucagon Inj 1 Mg Vial) 1 mg IM Q15MIN PRN PRN Reason: BG <70, and no IV access Sodium Chloride (Ns) 1,000 mls @ 100 mls/hr IV Q10H [facility] Stop: 11/06/25 21:14 Last Admin: 10/07/25 21:36 Dose: 100 mls/hr Insulin Human Lispro (Insulin Lispro (Admelog) 1 Unit/0.01 Ml Unit) 0 unit SC [facility]; Protocol Stop: 11/07/25 07:29 Labetalol HCl (Labetalol Inj 5 Mg/Ml Vial 4 Ml) 10 mg IVP Q15M PRN PRN Reason: hypertension Levetiracetam (Levetiracetam Inj 100 Mg/Ml Vial 5ml) 1,500 mg IVP BID [facility] Stop: 11/07/25 08:59 Ondansetron HCl (Ondansetron Inj 2 Mg/Ml Inj 2 Ml) 4 mg IVP Q4HR PRN PRN Reason: NAUSEA OR VOMITING Stop: 11/06/25 21:02 Phenytoin Sodium (Phenytoin Inj 50 Mg/Ml Vial 2 Ml) 100 mg IV TID [facility] Stop: 11/07/25 05:59 Discontinued Medications Phenytoin Sodium 1,500 mg/ (Sodium Chloride) 280 mls @ 280 mls/hr IV X1 ONE Stop: 10/07/25 22:59 Last Admin: 10/07/25 22:07 Dose: 280 mls/hr Levetiracetam (Levetiracetam Inj 100 Mg/Ml Vial 5ml) 1,500 mg IVP X1 ONE Stop: 10/07/25 21:26 Last Admin: 10/07/25 21:41 Dose: 1,500 mg Phenytoin Sodium (Phenytoin Inj 50 Mg/Ml Vial 5 Ml) 1,500 mg IV X1 ONE Stop: 10/07/25 21:26 Last Admin: 10/07/25 22:59 Dose: Not Given Assessment & Plan Plan Summary: 70-year-old female past medical history of insulin-dependent type 2 diabetes, diabetic nephropathy status post left BKA, CVA in December 2024 on PLAVIX/ASPIRIN with residual bowel and bladder incontinence, seizure disorder on KEPPRA, hypothyroidism, chronic constipation, CKD, hypertension, hyperlipidemia, gout, and depression/anxiety disorder who presented to the ED in the evening of 10/07/2025 after a seizure. It was reported that she had 3 successive seizures, 1 at home and 2 en route by EMS without lucid interval. Versed was given in the field following second seizure. It was reported that the patient was notably moving her right side and flaccid on the left and thereby stroke was suspected. Upon arrival the patient was reported to be deeply somnolent and minimally arouasble, nonverbal, and had a GCS of 3 with sonorous respirations. Stroke alert was called on arrival. Patient was admitted for breakthrough seizures and stroke rule out. #Breakthrough Seizure #History of Seizure disorder #Stroke rule out Patient presented after having 3 successive seizures, 1 at home and 2 and route per EMS, Versed was given in the field after the second seizure Reportedly there was no loss of bowel or bladder control, no tongue biting, no lucid interval Reportedly the patient had a GCS of 3 on arrival, GCS 13 on admission Reportedly the patient's left upper extremity was flaccid on arrival, stroke alert was called, head CT was negative for acute changes, previously established right temporal encephalomalacia. NIHSS score 3: Arouses to repeated stimulation (+2), disoriented to time and place (+1) Patient had no focal neurological deficits on exam. Patient takes and has been compliant with Keppra 1000 mg nightly, 500 mg every morning, and still experienced a breakthrough seizure. Difficult to identify a precipitating factor at this time. Plan: Telemetry neuro consulted Patient passed swallow eval, able to take oral meds Keppra 1500 mg twice daily Phenytoin 100 mg 3 times daily Lorazepam 2 mg IV push as needed every 30 minutes for breakthrough seizures Continuous EEG monitoring MRI brain ordered Neurochecks every 4 hours Aspiration and seizure precautions Lipid panel pending A1c pending Permissive hypertension for the first 24 hours, labetalol 10 mg IV push as needed for SBP greater than or equal to 180, DBP greater than or equal to 105 Echo ordered Neurology consulted #Insulin-dependent type 2 diabetes #Status post left below-knee amputation #Diabetic nephropathy Patient takes 26 units degludec, empagliflozin, semaglutide at home Patient's left below-knee amputation showed no abnormalities on physical exam Plan: Carb consistent diet Insulin sliding scale #Previous CVA on Aspirin and Plavix Patient reportedly had a CVA in December 2024 and is currently taking aspirin and Plavix Patient reportedly has residual bladder and bowel incontinence, denied either of these on admission Plan: Aspirin 81 mg daily Plavix 75 mg daily #UTI Urinalysis showed 7 WBCs, 1+ bacteria Patient denied dysuria, urgency, or frequency Plan: Urine culture ordered #ALLYN on CKD Patient presented with a creatinine of 2.0, baseline appears to be around 1.5 May be secondary to seizure or decreased oral intake Plan: Patient received a liter of fluids in the ED Avoid NSAIDs and nephrotoxic agents Renally dose medications #Hypertension Stage II Patient presented with BP 185/80 Patient takes losartan 50 mg daily Plan: Permissive hypertension for the first 24 hours after admission Consider restarting home losartan after 24 hours #Hypothyroidism Per patient history Plan: Levothyroxine 25 mcg daily #Hyperlipidemia Per patient history Repeat lipid panel pending Plan: Atorvastatin 80 mg nightly #Gout Per patient history Plan: Allopurinol 100 mg daily #Anxiety/Depression Per patient history Plan: Consider restarting home sertraline after med rec #Chronic Normocytic Anemia Patient presented with hemoglobin 11, MCV 91 Appears to be a chronic issue based on previous hemoglobin levels Consider anemia of chronic disease versus iron deficiency. Iron deficiency is more likely due to a normal MCV No concern for active bleeding at this time, platelets 196 Plan: No direct intervention at this time Consider iron panel Hospital Maintenance: DVT ppx: Lovenox 40 mg subcu daily Diet: Carb consistent IV lines: Peripheral IVs Riddle: In place Code status: DO NOT INTUBATE, Resuscitation okay Dispo: Telemetry monitoring floor, admitted for breakthrough seizure, continuous EEG monitoring, neurochecks every 4, pending brain MRI, neurology consulted, urine culture pending. Patient was seen and discussed with my attending physician Dr. Krishan ALANIZ and my senior resident Dr. Shanita ALANIZ PGY-2. Vik Baptiste DO PGY-1. Attending Provider Attestation/Addendum I have examined the patient, reviewed labs and imaging findings, discussed the case with the resident(s), and reviewed entered orders. I agree with the plan of care as outlined in this note, with these additional summaries/recommendations: 70-year-old female with past medical history of DM on insulin complicated by left BKA, hypothyroidism, CVA complicated by seizure disorder, who presented to the ED with chief complaint of breakthrough seizures despite being on at home Keppra regimen. Unknown trigger at this time, initial workup otherwise negative for infectious or acute CVA. Will admit for further close monitoring with EEG and titration/adjustment to her antiepileptic regimen. Dominick Nickerson MD
[2025-10-08 01:55] LABS: Lactate (Lactic Acid) 1.4 mMol/L (0.4-2.0)
[2025-10-08] MEDS: Magnesium Sulfate 2 GM Ivpb 2 GM/50 ML BAG IV (01:58)
[2025-10-08 02:04] LABS: Basophils # (Auto) 0.0 Thou/mm3 (0.0-0.2); Basophils % (Auto) 0 % (0-2.5); Eosinophils # (Auto) 0.1 Thou/mm3 (0.0-0.5); Eosinophils % (Auto) 1 % (0-10); Hematocrit 33.8 % (36.0-46.0); Hemoglobin 11.0 g/dL (12.0-16.0); Immature Granulocytes Auto 0.04 Thou/mm3 (0.00-0.00); Lymphocytes # (Auto) 2.0 Thou/mm3 (1.0-4.8); Lymphocytes % (Auto) 18 % (10-50); Mean Corpuscular HGB Conc 32.5 g/dl (31.0-37.0); Mean Corpuscular Hemoglobin 29.6 pg (25.0-35.0); Mean Corpuscular Volume 91 fL (80-100); Monocytes # (Auto) 0.4 Thou/mm3 (0.0-0.8); Monocytes % (Auto) 3 % (0-12); Neutrophils # (Auto) 8.5 Thou/mm3 (1.8-7.7); Neutrophils % (Auto) 78 % (37-80); Nucleated Red Blood Cell # 0.00 Thou/mm3 (0.00-0.00); Nucleated Red Blood Cell % 0 /100 WBC (0); Platelet Count 196 Thou/mm3 (140-440); RDW Standard Deviation 44.7 fL (36.4-46.3); Red Blood Count 3.71 Miln/mm3 (4.00-5.20); White Blood Count 11.0 Thou/mm3 (3.6-11.0)
--- NOTE | 2025-10-08 02:11 | ECHO_ITS ---
Patient Info Name: Poornima Graves Age: 70 years : 1955 Gender: Female Ht: 168 cm Wt: 100 kg BSA: 2.20 m2 BP: 144 / 68 mmHg Exam Date: 10/08/2025 11:46 AM Admit Date: 10/08/2025 Site: [facility] Patient Status: I Exam Type: CA echo doppler complete [employer] Specialist: Elma Carroll Ordering Physician: Vik Baptiste Study Info Indications Stroke rule out - Contrast/Agitated Saline Contrast/Ag. Saline: Agitated Saline Amount: --- ml Primary Location: [id number] Left Ventricular Outflow Tract Name Value Normal LVOT 2D LVOT Diameter 1.9 cm LVOT Doppler LVOT Peak Velocity 106 cm/s LVOT Mean Gradient 3 mmHg LVOT VTI 30 cm LVOT VTI/AV VTI Ratio 0.8 LVOT Stroke Volume 86 ml Pulmonic Valve Name Value Normal PV Doppler PV Peak Velocity 91 cm/s Mitral Valve Name Value Normal MV Doppler MV Mean Gradient 2 mmHg MV Decel Bee 447 cm/s2 MV PHT 71 ms MV Area (PHT) 3.1 cm2 4.0-5.0 MV Area (Cont Eq VTI) 1.6 cm2 MV Diastolic Function MV E Peak Velocity 110 cm/s MV A Peak Velocity 122 cm/s MV E/A 0.9 MV Annular TDI MV Septal e' Velocity 3.8 cm/s MV E/e' (Septal) 28.9 MV Lateral e' Velocity 5.9 cm/s MV E/e' (Lateral) 18.7 MV e' Average 4.84 cm/s MV E/e' (Average) 23.8 Tricuspid Valve Name Value Normal TV Regurgitation Doppler TR Peak Velocity 148 cm/s Estimated PAP/RSVP RA Pressure 3 mmHg <=5 PA Systolic Pressure 12 mmHg <36 RV Systolic Pressure 12 mmHg <36 TV Annular TDI TV Lateral Tessie s' Velocity 13.7 cm/s >=9.5 Aortic Valve Name Value Normal AV 2D/MM AV Cusp Sep (MM) 1.5 cm AV Doppler AV Peak Velocity 153 cm/s AV Mean Gradient 5 mmHg AV VTI 37 cm AV Area (Cont Eq VTI) 2.3 cm2 >=3.0 AV Area (Cont Eq Waldemar) 2.0 cm2 AV DI (Waldemar) 0.69 AV Regurgitation 2D LVOT Area 2.8 cm2 Ventricles Name Value Normal LV Dimensions 2D/MM IVS Diastolic Thickness (2D) 1.2 cm 0.6-0.9 LVID Diastole (2D) 4.7 cm 3.8-5.2 LVIW Diastolic Thickness (2D) 1.1 cm 0.6-0.9 LVID Systole (2D) 3.1 cm 2.2-3.5 LVOT Diameter 1.9 cm LV Mass (2D Cubed) 199.60 g 67.00-162.00 LV Mass Index (2D Cubed) 91 g/m2 43-95 Relative Wall Thickness (2D) 0.47 <=0.42 IVS/LVIW Diastolic Thickness (2D) 1.09 0.00-1.50 LV Fractional Shortening/Ejection Fraction 2D/MM LV Fractional Shortening (2D) 34 % 27-45 LV EF (2D Teichholz) 63 % RV Dimensions 2D/MM TV Lateral Tessie s' Velocity 13.7 cm/s >=9.5 Atria Name Value Normal LA Dimensions LA Volume (4C A-L) 84 ml LA Volume (BP A-L) 94 ml Left Ventricle Left ventricular chamber dimension is normal. Left ventricular systolic function is normal with visually estimated ejection fraction of 50-55%. There is mild concentric hypertrophy noted in the left ventricle. Left ventricular segmental wall motion is normal. There is grade I diastolic dysfunction in the left ventricle. Right Ventricle Right ventricular chamber dimension is normal. Right ventricular systolic function is normal. Left Atrium Left atrial chamber dimension is moderately enlarged. Right Atrium Right atrial chamber dimension is normal. Aortic Valve The aortic valve is trileaflet. There is mild aortic valve sclerosis. There is no aortic valve stenosis with a peak velocity of 153 cm/s, mean gradient of 5 mmHg, and aortic valve area of 2.3 cm2. There is no aortic valve regurgitation. Pulmonic Valve The pulmonic valve is normal. There is no pulmonic valve stenosis. There is trace pulmonic regurgitation. Mitral Valve The mitral valve has thickened leaflets. There is no mitral valve stenosis. There is trace mitral valve regurgitation. Tricuspid Valve The tricuspid valve leaflets are normal. There is no tricuspid valve stenosis. There is trace tricuspid valve regurgitation. No pulmonary hypertension, estimated pulmonary arterial systolic pressure is 12 mmHg and systemic blood pressure of 144 mmHg in systole. Pericardium/Pleural The pericardium appears normal. There is no pericardial effusion. No pleural effusion visualized. Inferior Vena Cava Normal inferior vena cava with >50% collapse upon inspiration consistent with normal right atrial pressure, 3 mmHg. Aorta The aortic measurements are indexed to age and body surface area. The aortic root at the sinus of Valsalva is not well visualized. The prox ascending aorta is not well visualized. Summary 1. Left ventricle size is normal and systolic function is normal. Estimated ejection fraction is 50-55%. There is grade I diastolic dysfunction. There is mild concentric hypertrophy noted. 2. Right ventricle chamber size is normal and systolic function is normal. Estimated RVSP is 12 mmHg. 3. There is mild aortic valve sclerosis with no stenosis. 4. There is trace mitral and tricuspid valve regurgitation. non mobile posterior mitral valve. Mild MAC. 5. The left atrium is moderately enlarged. The right atrium is normal. 6. Normal IVC with estimated RA pressure 3 mmHg. 7. Negative bubble study. Report Signatures Finalized by Quirino Lorenzo on 10/10/2025 08:45 AM
[2025-10-08 02:34] LABS: Alanine Aminotransferase 10 U/L (10-49); Albumin, Serum 4.1 gm/dL (3.4-4.8); Albumin/Globulin Ratio 1.5 (1.2-2.2); Alkaline Phosphatase 99 U/L (46-116); Anion Gap 13 (7-16); Aspartate Amino Transferase 12 U/L (0-34); BUN/Creatinine Ratio 13 Ratio (12-20); Bilirubin,Total 0.2 mg/dL (0.3-1.2); Blood Urea Nitrogen 27 mg/dL (9-23); Calcium 8.9 mg/dL (8.3-10.6); Calcium (Corrected) 8.9 mg/dL (8.5-10.1); Carbon Dioxide 24.4 mMol/L (20.0-31.0); Cardiac Risk Estimate 3.4 RATIO (3.7-5.6); Chloride 107 mMol/L (98-107); Cholesterol 158 mg/dL (132-200); Creatinine (Component) 2.1 mg/dL (0.6-1.3); Estimated Creatinine Clearance 30.1 mL/min (>60); Globulin 2.7 gm/dL (2.3-3.5); Glucose 340 mg/dL (74-106); HDL Cholesterol 46 mg/dL (40-60); LDL Cholesterol,Calculated 81 mg/dL (0-130); Osmolality,Calculated 304 (275-295); Potassium 4.2 mMol/L (3.4-5.1); Sodium 144 mMol/L (136-145); Total Protein 6.8 gm/dL (5.7-8.2); Triglycerides 154 mg/dL (30-150); eGFR 25 See Note
[2025-10-08] MEDS: PHENYTOIN 100 MG CAPSR PO ×3 (05:07→21:00)
[2025-10-08] MEDS: LEVOTHYROXINE SODIUM 25 MCG TABLET PO (05:07)
[2025-10-08 07:30] LABS: Glucose Estimated Average 183 mg/dL (80-131); Hemoglobin A1C 8.0 % Hgb (4.8-6.0)
[2025-10-08] MEDS: INSULIN LISPRO (AdmeLOG) 1 UNIT/0.01 ML UNIT SC ×2 (07:55→12:20)
[2025-10-08] MEDS: INSULIN DEGLUDEC 5 UNIT/0.05 ML (PER 5 UNITS) 15 UNIT SC (07:55)
[2025-10-08] MEDS: ENOXAPARIN SOD INJ 40 MG/0.4 ML SYRINGE SC (08:42)
[2025-10-08] MEDS: ASPIRIN EC 81 MG TABEC PO (08:42)
[2025-10-08] MEDS: CLOPIDOGREL BISULFATE 75 MG TABLET PO (08:42)
--- NOTE | 2025-10-08 09:28 | ESPR_ITS ---
Documentation for date of: 10/08/25 Subjective Subjective Interval history: Patient seen and examined at bedside; no acute events overnight. patient was A&Ox3 today, able to communicate normally. Waiting for MRI and neuro recs; spoke with sister today. Exam Vital Signs Temp Pulse Resp BP Pulse Ox O2 Del Method O2 Flow Rate 97.7 F 64 18 144/68 H 93 L Room Air 12 10/08/25 08:00 10/08/25 08:00 10/08/25 08:00 10/08/25 08:00 10/08/25 08:00 10/08/25 08:00 10/07/25 21:07 Narrative Exam General: A/O x3, no acute distress, well-nourished, well-developed Eyes: PERRL, EOMI. Anicteric, vision grossly intact. Ears: No ear pain, no ear discharge, Hearing grossly intact. Nose: No nasal discharge. Mouth/Throat: Moist mucous membranes, no redness, no lesions. Neck: Neck supple, non-tender, no cervical lymphadenopathy. Lungs: Clear LISA to auscultation and percussion, No accessory muscle use. Cardio: Normal S1/S2, regular rhythm, no murmurs, no JVD or carotid bruits. Abdomen: Soft, non-tender, no palpable masses, peristalsis present, no guarding or rebound. Extremities: Symmetrical, no significant deformities, no peripheral edema , non-tender, peripheral pulses present. Skin: No rashes, no lesions, warm to touch. Neuro: No focal neurological deficits. Psych: Cooperative, appropriate mood and effect. Objective Labs 10/09/25 05:26 10/09/25 05:26 Labs: Laboratory Results - last 24 hr 10/07/25 10/07/25 10/08/25 12:30 21:19 01:51 WBC 8.5 11.0 RBC 3.30 L 3.71 L Hgb 9.9 L 11.0 L Hct 30.4 L 33.8 L MCV 92 91 MCH 30.0 29.6 MCHC 32.6 32.5 RDW Std Deviation 45.2 44.7 Plt Count 307 196 D Neut % (Auto) 57 78 Lymph % (Auto) 35 18 [place] % (Auto) 5 3 Eos % (Auto) 2 1 Baso % (Auto) 1 0 Neut # (Auto) 4.8 8.5 H Lymph # (Auto) 3.0 2.0 [place] # (Auto) 0.4 0.4 Eos # (Auto) 0.1 0.1 Baso # (Auto) 0.1 0.0 Immature Gran # (Auto) 0.06 H 0.04 H Absolute Nucleated RBC 0.00 0.00 Immature Gran % 1 H 0 Nucleated RBC % 0 0 PT 10.1 INR 0.9 APTT 23.2 Sodium 140 144 Potassium 3.6 4.2 D Chloride 105 107 Carbon Dioxide 19.3 L 24.4 Anion Gap 16 13 BUN 23 27 H Creatinine 2.0 H 2.1 H Estim Creat Clear Calc 31.6 L 30.1 L eGFR 27 L 25 L BUN/Creatinine Ratio 12 13 Glucose [address] Glu mg/dL 183 H Hemoglobin A1c 8.0 H Calculated Osmolality 292 304 H Lactic Acid 1.4 Calcium 9.0 8.9 Corrected Calcium 9.2 8.9 Magnesium 1.7 Total Bilirubin 0.2 L 0.2 L AST < 8 12 ALT 9 L 10 Alkaline Phosphatase 87 99 Troponin I < 0.020 B-Natriuretic Peptide 66 Total Protein 6.4 6.8 Albumin 3.7 4.1 Globulin 2.7 2.7 Albumin/Globulin Ratio 1.4 1.5 Triglycerides 154 H Cholesterol 158 LDL Cholesterol, Calc 81 HDL Cholesterol 46 Cholesterol/HDL Ratio 3.4 L Ur Collection Type Catheter Urine Color Lt-Yellow Urine Clarity Clear Urine pH 6.0 Ur Specific [place] 1.024 Urine Protein 1+ A Urine Glucose (UA) 4+ A Urine Ketones Negative Urine Blood Negative Urine Nitrite Negative Urine Bilirubin Negative Urine Urobilinogen (Auto) Negative Ur Leukocyte Esterase Negative Urine RBC 1 Urine WBC 7 H Ur Squamous Epith Cells < 1 Urine Bacteria 1+ A Ur Culture Indicated? Yes Urine Opiates Screen Negative Urine Fentanyl Screen Negative Ur Barbiturates Screen Negative U Amphetamin/Meth Scrn Negative U Benzodiazepines Scrn Negative U Cocaine Metab Screen Negative U Marijuana (THC) Screen Negative Ethyl Alcohol < 3.0 HCG (Qual) Negative Quality Measures Quality Measures stroke Suspected type of Stroke: Unknown at this time Last known well (date): 10/07/25 Tenecteplase given: Reason(s) Tenecteplase not given: Siezure at onset with post-ictal neuro impairment not given Rehab services: PT evaluation ordered VTE Prophylaxis: pharmaceutical Antithrombotic by day 2:: ordered Statin ordered: >75 y/o moderate or high intensity dose Anticoagulation ordered for A- fib or flutter (current or hx): ordered Advance care planning discussed with:: other Assessment & Plan Assessment Current Active Medications: Generic Name Dose Route Start Last Admin Trade Name Freq PRN Reason Stop Dose Admin Acetaminophen 650 mg 10/08/25 00:04 Acetaminophen 325 Mg Tablet PO 11/07/25 00:03 Q6H PRN Fever >100.4 Allopurinol 100 mg 10/08/25 09:00 10/08/25 08:42 Allopurinol 100 Mg Tablet PO 11/07/25 08:59 100 mg QDAY ERIKA Administration Aspirin 81 mg 10/08/25 09:00 10/08/25 08:42 Aspirin Ec 81 Mg Tabec PO 11/07/25 08:59 81 mg QDAY ERIKA Administration Atorvastatin Calcium 80 mg 10/08/25 21:00 Atorvastatin Calcium 20 Mg Tablet PO 11/07/25 20:59 HS ERIKA Clopidogrel Bisulfate 75 mg 10/08/25 09:00 10/08/25 08:42 Clopidogrel Bisulfate 75 Mg Tablet PO 11/07/25 08:59 75 mg QDAY ERIKA Administration Dextrose 25 ml 10/08/25 00:13 Dextrose 50%-Water Inj 50 Ml Syringe IV 11/07/25 00:12 Q15MIN PRN BG 50-70 responsive npo pt Dextrose 50 ml 10/08/25 00:13 Dextrose 50%-Water Inj 50 Ml Syringe IV 11/07/25 00:12 Q15MIN PRN BG <50 OR BG <70 & pt unresponsive Enoxaparin Sodium 40 mg 10/08/25 09:00 10/08/25 08:42 Enoxaparin Sod Inj 40 Mg/0.4 Ml Syringe SC 10/22/25 08:59 40 mg QDAY ERIKA Administration Glucagon 1 mg 10/08/25 00:13 Glucagon Inj 1 Mg Vial IM Q15MIN PRN BG <70, and no IV access Sodium Chloride 1,000 mls @ 100 mls/hr 10/07/25 21:15 10/07/25 21:36 Ns IV 11/06/25 21:14 100 mls/hr Q10H ERIKA Administration Insulin Degludec 15 unit 10/08/25 07:45 10/08/25 07:55 Insulin Degludec 5 Unit/0.05 Ml (Per 5 Units) SC 11/07/25 07:44 15 unit QDAY ERIKA Administration Insulin Human Lispro 0 unit 10/08/25 08:00 10/08/25 07:55 Insulin Lispro (Admelog) 1 Unit/0.01 Ml Unit SC 11/07/25 07:59 2 unit ACHS ERIKA Administration Protocol Labetalol HCl 10 mg 10/07/25 21:03 Labetalol Inj 5 Mg/Ml Vial 4 Ml IVP Q15M PRN hypertension Levetiracetam 1,500 mg 10/08/25 09:00 10/08/25 08:41 Levetiracetam 250 Mg Tablet PO 11/07/25 08:59 1,500 mg BID ERIKA Administration Levothyroxine Sodium 25 mcg 10/08/25 06:00 10/08/25 05:07 Levothyroxine Sodium 25 Mcg Tablet PO 11/07/25 05:59 25 mcg ACBR ERIKA Administration Lorazepam 2 mg 10/08/25 01:52 Lorazepam 2 Mg/Ml Vial IVP 10/13/25 01:59 Q30MIN PRN Breakthrough seizure Ondansetron HCl 4 mg 10/07/25 21:03 Ondansetron Inj 2 Mg/Ml Inj 2 Ml IVP 11/06/25 21:02 Q4HR PRN NAUSEA OR VOMITING Phenytoin 100 mg 10/08/25 06:00 10/08/25 05:07 Phenytoin 100 Mg Capsr PO 11/07/25 05:59 100 mg TID ERIKA Administration Plan Patient is 70 yo F PMH of IDT2DM, diabetic nephropathy status post left BKA, 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 Patient admitted on 10/08 for breakthrough seizures and stroke rule out. #Breakthrough Seizure #Possible Stroke #History of Seizure disorder Patient presented after having 3 successive seizures, 1 at home and 2 and route per EMS, Versed was given in the field after the second seizure; patient was GCS 3 on arrival, GCS 13 on admission; left upper extremity was flaccid on arrival, CTA head and neck including head CT was negative for acute changes, previously established right temporal encephalomalacia. Patient has been compliant with Keppra 1000 mg PM, 500 mg AM. Plan: Neuro consulted Patient passed swallow eval Keppra 1500 mg BID Phenytoin 100 mg TID Lorazepam 2 mg IV push as needed every 30 minutes for breakthrough seizures Continuous EEG monitoring MRI brain Neurochecks q4h Aspiration and seizure precautions Permissive HTN for the first 24 hours, labetalol 10 mg IV push as needed for SBP at least 180, DBP at least 105 Echo ordered #Insulin-dependent type 2 diabetes #Status post left below-knee amputation #Diabetic nephropathy Patient on 26 units degludec, empagliflozin, semaglutide at home Patient's left below-knee amputation showed no abnormalities on physical exam A1c 8.0 today Plan: Carb consistent diet Insulin sliding scale #Previous CVA on Aspirin and Plavix Previous CVA in December 2024, currently taking aspirin and Plavix Patient has residual bladder and bowel incontinence, denied both on admission Plan: Aspirin 81 mg daily Plavix 75 mg daily #Asymptomatic UTI Admssion UA showed 7 WBCs, 1+ bacteria Patient denied dysuria, urgency, or frequency Plan: UCx ordered #ALLYN on CKD Admission creatinine 2.0, baseline around 1.5 Secondary to seizure vs decreased oral intake Plan: 1L NS in ED Avoid NSAIDs and nephrotoxic agents Renally dose medications #Severe HTN BP 185/80 on admission Plan: Permissive hypertension for the first 24 hours after admission Consider restarting home losartan after 24 hours #Hypothyroidism Per patient history Plan: Levothyroxine 25 mcg daily #Hyperlipidemia Lipid panel- TG 154 Plan: Atorvastatin 80 mg nightly #Gout Per patient history Plan: Allopurinol 100 mg daily #Anxiety/Depression Per patient history Plan: Consider restarting home sertraline Disposition: Tele DVT prophylaxis: Lovenox 40 qday GI prophylaxis: Diet: carb consistent low Lines: PIV CODE STATUS: Limited This case was discussed with my attending physician, Dr. Fernandes, and senior resident, Dr. Patel. Prosper Segundo, PGY1 Senior Resident Attestation: The patient did not had any further episode of seizure overnight, and had 1 episode of seizure at home, and [address] to ED. We will continue with continuous EEG, aspirin, Plavix, atorvastatin, and as head and neck CTA, head CT was negative, we will obtain MRI brain stroke protocol. The patient was also added on 100 mg phenytoin twice daily. Pending neuro recs. We will obtain urine culture, as UA was concerning for asymptomatic UTI, which could be possible etiology for breakthrough seizure. I discussed with and supervised the health information internship physician involved in the care of this patient. I personally saw and examined the patient and discussed the assessment and plan with the entire medicine team, including my attending. I agree with the assessment and plan as documented above. Arias Patel MD PGY3 Internal Medicine Attending Provider Attestation/Addendum I have seen and examined the patient. I was physically present for the alvarado portions of the services provided including history, physical exam, diagnosis, treatment plans and orders. I agree with assessment and plan of care as documented by residents. Even though this this note was carefully revised there may still be minor errors in paste up artist apprentice due to voice recognition software. Yisel Fernandes MD
[2025-10-08] MEDS: SODIUM CHLORIDE 0.9% 1000 ML 1,000 ML 100 ML IV ×2 (11:11→21:35)
--- NOTE | 2025-10-08 11:38 | PC.SS ---
Addendum entered by PAULINA Crawford 10/08/25 11:59: GATE CLERK provided patients bedside nurse with patients sisters number. Original Note: Patient is a 70 year old female presenting to the hospital for seizure. GATE CLERK met with patient at bedside, role and reason for visit was explained. Patient confirmed demographic information and stated she lives with her sister. Patient stated that sister?s phone number is wrong but she is unable to remember the number. Patient stated she uses wheelchair and walker and no home oxygen. Patient stated that in case she is unable to make medical decisions on her own her sister Elizabet will make them. Patient stated that her PCP is Dr. Swift at [facility] in [place]. Last visit was two weeks ago and her pharmacy of choice is [facility] on [address]. Patient stated that once medically clear she would like to return home and her sister will provide transportation. PCP: Dr. Swift Decision maker: Elizabet D/c: home
--- NOTE | 2025-10-08 17:27 | PC.NURSE ---
still waiting for patient's sister will bring home med list for med rec,
[2025-10-08] MEDS: ATORVASTATIN CALCIUM 20 MG TABLET 80 MG PO (21:00)
--- NOTE | 2025-10-08 21:44 | PD.NEUROPROG ---
Documentation for date of: 10/08/25 Subjective Subjective Interval history: Patient is in telemetry today, no sz reported after admission. No new symptoms reported. Exam - Neurology Vital Signs Temp Pulse Resp BP Pulse Ox O2 Del Method O2 Flow Rate 97 F 63 19 141/64 H 97 Room Air 12 10/08/25 16:00 10/08/25 16:00 10/08/25 16:00 10/08/25 16:00 10/08/25 16:00 10/08/25 16:00 10/07/25 21:07 Narrative Exam GENERAL APPEARANCE: Well hydrated, well-nourished in no acute distress. HEENT: Normocephalic, atraumatic, extraocular movements intact. Pupils: Equal reacting to light and accommodation NECK: Supple, no JVD or bruits. CARDIOVASULAR: Heart: S1, S2 heard, regular without S3-S4 or murmur no rubs or gallops. LUNGS/CHEST: Clear to auscultation bilaterally. No rails, rhonchi, or wheezing. Normal inspection. ABDOMEN: Soft, nontender, with normal bowel sounds. No pulsatile masses. No rebound, rigidity, or guarding. Normal inspection and palpation. EXTREMITIES: Normal inspection and palpation. No edema, clubbing or cyanosis. SKIN: Warm and dry without rashes. Normal inspection. MUSCULOSKELETAL: No cervical, thoracic, lumbar or midline bony tenderness. Normal inspection. She is amputated above knee on right lower extremity NEURO: Alert, awake and oriented x3. Cranial nerves: II through XII grossly intact. Speech and language: Normal with no dysarthria or dysphasia. Motor system: Tone and bulk: Normal: Strength: 5 out of 5 in all 3 extremities; No pronator drift noted. Deep tendon reflexes: 2+ bilaterally symmetrical. Plantar reflex: Downgoing bilaterally. Sensory system: Intact to all modalities of sensation bilaterally. Coordination: Intact to [id number]-[id number] test bilaterally. No ataxia, no dysmetria, or dysdiadochokinesia noted. No intention tremors noted. Gait: Not tested. No signs of meningeal irritation noted. PSYCHIATRIC: Normal mood and affect. Objective Labs 10/09/25 05:26 10/09/25 05:26 Labs: Laboratory Results - last 24 hr 10/07/25 10/07/25 10/08/25 12:30 21:19 01:51 WBC 11.0 RBC 3.71 L Hgb 11.0 L Hct 33.8 L MCV 91 MCH 29.6 MCHC 32.5 RDW Std Deviation 44.7 Plt Count 196 D Neut % (Auto) 78 Lymph % (Auto) 18 [place] % (Auto) 3 Eos % (Auto) 1 Baso % (Auto) 0 Neut # (Auto) 8.5 H Lymph # (Auto) 2.0 [place] # (Auto) 0.4 Eos # (Auto) 0.1 Baso # (Auto) 0.0 Immature Gran # (Auto) 0.04 H Absolute Nucleated RBC 0.00 Immature Gran % 0 Nucleated RBC % 0 Sodium 140 144 Potassium 3.6 4.2 D Chloride 105 107 Carbon Dioxide 19.3 L 24.4 Anion Gap 16 13 BUN 23 27 H Creatinine 2.0 H 2.1 H Estim Creat Clear Calc 31.6 L 30.1 L eGFR 27 L 25 L BUN/Creatinine Ratio 12 13 Glucose [address] Glu mg/dL 183 H Hemoglobin A1c 8.0 H Calculated Osmolality 292 304 H Lactic Acid 1.4 Calcium 9.0 8.9 Corrected Calcium 9.2 8.9 Magnesium 1.7 Total Bilirubin 0.2 L 0.2 L AST < 8 12 ALT 9 L 10 Alkaline Phosphatase 87 99 Troponin I < 0.020 Total Protein 6.4 6.8 Albumin 3.7 4.1 Globulin 2.7 2.7 Albumin/Globulin Ratio 1.4 1.5 Triglycerides 154 H Cholesterol 158 LDL Cholesterol, Calc 81 HDL Cholesterol 46 Cholesterol/HDL Ratio 3.4 L Ur Collection Type Catheter Urine Color Lt-Yellow Urine Clarity Clear Urine pH 6.0 Ur Specific [place] 1.024 Urine Protein 1+ A Urine Glucose (UA) 4+ A Urine Ketones Negative Urine Blood Negative Urine Nitrite Negative Urine Bilirubin Negative Urine Urobilinogen (Auto) Negative Ur Leukocyte Esterase Negative Urine RBC 1 Urine WBC 7 H Ur Squamous Epith Cells < 1 Urine Bacteria 1+ A Ur Culture Indicated? Yes Urine Opiates Screen Negative Urine Fentanyl Screen Negative Ur Barbiturates Screen Negative U Amphetamin/Meth Scrn Negative U Benzodiazepines Scrn Negative U Cocaine Metab Screen Negative U Marijuana (THC) Screen Negative Ethyl Alcohol < 3.0 HCG (Qual) Negative Assessment & Plan Assessment and plan (1) Seizure: Status: Acute Assessment and plan: Follow-up with EEG Continue with the Sue for now Continue with the seizure precautions.
[2025-10-09] VITALS (7 sets, daily range): BP systolic 98–162; BP diastolic 50–79; PULSE 56–70; RESP 12–19; TEMP 35.9–36.4; O2SAT 92–99; BMI 29.8
--- NOTE | 2025-10-09 | XR_ITS ---
Examinations: MRI Brain without intravenous contrast. MRA brain without intravenous contrast. MRA carotids without intravenous contrast 3-D vascular reconstructions Date and time of exam: October 09, 2025, 1925 hours INDICATIONS: 3 seizures today with altered mental status, flaccid left paralysis, focal neurologic deficit Technique: Multiple axial and sagittal images of the brain have been obtained MRA brain carotid images without contrast obtained, including 3-D postprocessing, vascular maximum intensity projection images Findings: [place] is not enlarged. The optic chiasm and infundibular stalk are not remarkable. Prepontine and interpeduncular cisterns are not enlarged. No localized enlargement of the medulla or marbella. Fourth ventricle and cerebellar tonsils normal in position. Subacute hemorrhage is not seen. Fourth ventricle is midline. Mass in the cerebellopontine angle region is not evident. 7th and 8th nerve complexes exhibits symmetry. Globes are symmetrical with no retro-orbital mass. Increased white matter signal evident, moderate, including old infarct right temporal lobe Diffusion-weighted images demonstrate no focus of restricted diffusion Mass-effect upon the ventricular system is not identified. MRA carotid images degraded by patient motion. MRA brain images no large vessel occlusions Impression: Negative for acute hemorrhage mass effect or midline shift No acute infarct Old infarct right temporal lobe No large vessel occlusions
--- NOTE | 2025-10-09 01:16 | RESP.EEG ---
Extended EEG started this morning 10/09/25@0100.
[2025-10-09] MEDS: LEVOTHYROXINE SODIUM 25 MCG TABLET PO (05:40)
[2025-10-09] MEDS: PHENYTOIN 100 MG CAPSR PO ×3 (05:40→22:11)
[2025-10-09 06:18] LABS: Basophils # (Auto) 0.1 Thou/mm3 (0.0-0.2); Basophils % (Auto) 1 % (0-2.5); Eosinophils # (Auto) 0.2 Thou/mm3 (0.0-0.5); Eosinophils % (Auto) 2 % (0-10); Hematocrit 28.1 % (36.0-46.0); Hemoglobin 9.1 g/dL (12.0-16.0); Immature Granulocytes Auto 0.03 Thou/mm3 (0.00-0.00); Lymphocytes # (Auto) 2.6 Thou/mm3 (1.0-4.8); Lymphocytes % (Auto) 32 % (10-50); Mean Corpuscular HGB Conc 32.4 g/dl (31.0-37.0); Mean Corpuscular Hemoglobin 30.0 pg (25.0-35.0); Mean Corpuscular Volume 93 fL (80-100); Monocytes # (Auto) 0.5 Thou/mm3 (0.0-0.8); Monocytes % (Auto) 6 % (0-12); Neutrophils # (Auto) 4.8 Thou/mm3 (1.8-7.7); Neutrophils % (Auto) 60 % (37-80); Nucleated Red Blood Cell # 0.00 Thou/mm3 (0.00-0.00); Nucleated Red Blood Cell % 0 /100 WBC (0); Platelet Count 161 Thou/mm3 (140-440); RDW Standard Deviation 45.6 fL (36.4-46.3); Red Blood Count 3.03 Miln/mm3 (4.00-5.20); White Blood Count 8.1 Thou/mm3 (3.6-11.0)
[2025-10-09 06:44] LABS: Alanine Aminotransferase 7 U/L (10-49); Albumin, Serum 3.3 gm/dL (3.4-4.8); Albumin/Globulin Ratio 1.3 (1.2-2.2); Alkaline Phosphatase 78 U/L (46-116); Anion Gap 10 (7-16); Aspartate Amino Transferase < 8 U/L (0-34); BUN/Creatinine Ratio 14 Ratio (12-20); Bilirubin,Total 0.2 mg/dL (0.3-1.2); Blood Urea Nitrogen 23 mg/dL (9-23); Calcium 8.8 mg/dL (8.3-10.6); Calcium (Corrected) 9.4 mg/dL (8.5-10.1); Carbon Dioxide 23.2 mMol/L (20.0-31.0); Chloride 112 mMol/L (98-107); Creatinine (Component) 1.6 mg/dL (0.6-1.3); Estimated Creatinine Clearance 40.0 mL/min (>60); Globulin 2.5 gm/dL (2.3-3.5); Glucose 152 mg/dL (74-106); Magnesium 2.0 mg/dL (1.6-2.6); Osmolality,Calculated 295 (275-295); Phosphorous 3.3 mg/dL (2.4-5.1); Potassium 3.7 mMol/L (3.4-5.1); Sodium 145 mMol/L (136-145); Total Protein 5.8 gm/dL (5.7-8.2); eGFR 35 See Note
[2025-10-09] MEDS: ACETAMINOPHEN 325 MG TABLET 650 MG PO (07:21)
[2025-10-09] MEDS: SODIUM CHLORIDE 0.9% 1000 ML 1,000 ML 100 ML IV ×2 (07:30→20:29)
[2025-10-09] MEDS: INSULIN DEGLUDEC 5 UNIT/0.05 ML (PER 5 UNITS) 15 UNIT SC (08:25)
[2025-10-09] MEDS: ASPIRIN EC 81 MG TABEC PO (08:26)
[2025-10-09] MEDS: ENOXAPARIN SOD INJ 40 MG/0.4 ML SYRINGE SC (08:26)
[2025-10-09] MEDS: CLOPIDOGREL BISULFATE 75 MG TABLET PO (08:26)
--- NOTE | 2025-10-09 09:33 | PC.SS ---
Follow up note: Pending MRI. Pending ECHO read. Pt will return home upon dc.
--- NOTE | 2025-10-09 10:00 | ESPR_ITS ---
<Statement entered by Nirmala Betancur MD - 10/09/25 17:00> Patient was seen and examined by me personally. I have directly supervised and reviewed documentation by the team resident and agree with its findings with any exceptions or additional findings as below. Plan of care was discussed with the attending, Dr. Harris. No acute overnight events and no seizure-like activity noted. Patient is currently seen on continuous EEG which will be completed this afternoon. Patient will then be taken for MRI to rule out any structural abnormalities that may contribute to breakthrough seizure. Urinalysis was negative and the patient does not endorse any urinary symptoms. She also does not endorse any recent symptoms of infection including fevers, chills, sweats, nausea, vomiting, shortness of breath, abdominal pain, or any other abnormalities. Patient reports compliance with her Keppra. She started developing seizures only within this past year after her stroke in December 2024. The seizures are described as staring episodes. Patient was started on phenytoin 100 mg TID this admission in addition to increasing patient's Keppra dose to 1500 mg BID. Prior to this admission patient had the last seizure about 1 month ago. Will await EEG reading and final neurology recommendations prior to discharge. Nirmala Betancur, PGY-3 Documentation for date of: 10/09/25 Subjective Subjective Interval history: Patient seen and examined at bedside; no acute events overnight. Getting EEG currently; will get MRI stroke afterwards. Will be given 250cc bolus before MRI stroke to mitigate renal effects. Also asked for eyedrops. Hgb 9.1 from 11.9; ordered FOBT, and she doesn't endorse bleeding. Exam Vital Signs Temp Pulse Resp BP Pulse Ox O2 Del Method O2 Flow Rate 97.0 F 70 18 98/79 96 Room Air 12 10/09/25 08:00 10/09/25 08:00 10/09/25 08:00 10/09/25 08:00 10/09/25 08:00 10/09/25 08:00 10/07/25 21:07 Narrative Exam General: A/O x3, no acute distress, well-nourished, well-developed, EEG cap on board Eyes: PERRL, EOMI. Anicteric, vision grossly intact. Ears: No ear pain, no ear discharge, Hearing grossly intact. Nose: No nasal discharge. Mouth/Throat: Moist mucous membranes, no redness, no lesions. Neck: Neck supple, non-tender, no cervical lymphadenopathy. Lungs: Clear LISA to auscultation and percussion, No accessory muscle use. Cardio: Normal S1/S2, regular rhythm, no murmurs, no JVD or carotid bruits. Abdomen: Soft, non-tender, no palpable masses, peristalsis present, no guarding or rebound. Extremities: Symmetrical, no significant deformities, no peripheral edema , non-tender, peripheral pulses present. Skin: No rashes, no lesions, warm to touch. Neuro: No focal neurological deficits. Psych: Cooperative, appropriate mood and effect. Objective Labs 10/09/25 05:26 10/09/25 05:26 Labs: Laboratory Results - last 24 hr 10/09/25 05:26 WBC 8.1 RBC 3.03 L Hgb 9.1 L Hct 28.1 L MCV 93 MCH 30.0 MCHC 32.4 RDW Std Deviation 45.6 Plt Count 161 D Neut % (Auto) 60 Lymph % (Auto) 32 [place] % (Auto) 6 Eos % (Auto) 2 Baso % (Auto) 1 Neut # (Auto) 4.8 Lymph # (Auto) 2.6 [place] # (Auto) 0.5 Eos # (Auto) 0.2 Baso # (Auto) 0.1 Immature Gran # (Auto) 0.03 H Absolute Nucleated RBC 0.00 Immature Gran % 0 Nucleated RBC % 0 Sodium 145 Potassium 3.7 D Chloride 112 H Carbon Dioxide 23.2 Anion Gap 10 BUN 23 Creatinine 1.6 H D Estim Creat Clear Calc 40.0 L eGFR 35 L BUN/Creatinine Ratio 14 Glucose 152 H D Calculated Osmolality 295 Calcium 8.8 Corrected Calcium 9.4 Phosphorus 3.3 Magnesium 2.0 Total Bilirubin 0.2 L AST < 8 ALT 7 L Alkaline Phosphatase 78 D Total Protein 5.8 Albumin 3.3 L D Globulin 2.5 Albumin/Globulin Ratio 1.3 Quality Measures Quality Measures stroke Suspected type of Stroke: Unknown at this time Last known well (date): 10/07/25 Tenecteplase given: Reason(s) Tenecteplase not given: Siezure at onset with post-ictal neuro impairment not given Rehab services: PT evaluation ordered VTE Prophylaxis: pharmaceutical Antithrombotic by day 2:: ordered Statin ordered: >75 y/o moderate or high intensity dose Anticoagulation ordered for A- fib or flutter (current or hx): ordered Advance care planning discussed with:: other Assessment & Plan Assessment Current Active Medications: Generic Name Dose Route Start Last Admin Trade Name Freq PRN Reason Stop Dose Admin Acetaminophen 650 mg 10/08/25 00:04 10/09/25 07:21 Acetaminophen 325 Mg Tablet PO 11/07/25 00:03 650 mg Q6H PRN Administration Fever >100.4 Allopurinol 100 mg 10/08/25 09:00 10/09/25 08:26 Allopurinol 100 Mg Tablet PO 11/07/25 08:59 100 mg QDAY ERIKA Administration Aspirin 81 mg 10/08/25 09:00 10/09/25 08:26 Aspirin Ec 81 Mg Tabec PO 11/07/25 08:59 81 mg QDAY ERIKA Administration Atorvastatin Calcium 80 mg 10/08/25 21:00 10/08/25 21:00 Atorvastatin Calcium 20 Mg Tablet PO 11/07/25 20:59 80 mg HS ERIKA Administration Clopidogrel Bisulfate 75 mg 10/08/25 09:00 10/09/25 08:26 Clopidogrel Bisulfate 75 Mg Tablet PO 11/07/25 08:59 75 mg QDAY ERIKA Administration Dextrose 25 ml 10/08/25 00:13 Dextrose 50%-Water Inj 50 Ml Syringe IV 11/07/25 00:12 Q15MIN PRN BG 50-70 responsive npo pt Dextrose 50 ml 10/08/25 00:13 Dextrose 50%-Water Inj 50 Ml Syringe IV 11/07/25 00:12 Q15MIN PRN BG <50 OR BG <70 & pt unresponsive Enoxaparin Sodium 40 mg 10/08/25 09:00 10/09/25 08:26 Enoxaparin Sod Inj 40 Mg/0.4 Ml Syringe SC 10/22/25 08:59 40 mg QDAY ERIKA Administration Glucagon 1 mg 10/08/25 00:13 Glucagon Inj 1 Mg Vial IM Q15MIN PRN BG <70, and no IV access Sodium Chloride 1,000 mls @ 100 mls/hr 10/07/25 21:15 10/09/25 07:30 Ns IV 11/06/25 21:14 100 mls/hr Q10H ERIKA Administration Insulin Degludec 15 unit 10/08/25 07:45 10/09/25 08:25 Insulin Degludec 5 Unit/0.05 Ml (Per 5 Units) SC 11/07/25 07:44 15 unit QDAY ERIKA Administration Insulin Human Lispro 0 unit 10/08/25 08:00 10/09/25 07:25 Insulin Lispro (Admelog) 1 Unit/0.01 Ml Unit SC 11/07/25 07:59 Not Given ACHS ERIKA Protocol Labetalol HCl 10 mg 10/07/25 21:03 Labetalol Inj 5 Mg/Ml Vial 4 Ml IVP Q15M PRN hypertension Levetiracetam 1,500 mg 10/08/25 09:00 10/09/25 08:26 Levetiracetam 250 Mg Tablet PO 11/07/25 08:59 1,500 mg BID ERIKA Administration Levothyroxine Sodium 25 mcg 10/08/25 06:00 10/09/25 05:40 Levothyroxine Sodium 25 Mcg Tablet PO 11/07/25 05:59 25 mcg ACBR ERIKA Administration Lorazepam 2 mg 10/08/25 01:52 Lorazepam 2 Mg/Ml Vial IVP 10/13/25 01:59 Q30MIN PRN Breakthrough seizure Ondansetron HCl 4 mg 10/07/25 21:03 Ondansetron Inj 2 Mg/Ml Inj 2 Ml IVP 11/06/25 21:02 Q4HR PRN NAUSEA OR VOMITING Phenytoin 100 mg 10/08/25 06:00 10/09/25 05:40 Phenytoin 100 Mg Capsr PO 11/07/25 05:59 100 mg TID ERIKA Administration Plan Patient is 70 yo F PMH of IDT2DM, diabetic nephropathy status post left BKA, 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 Patient admitted on 10/08 for breakthrough seizures and stroke rule out. #Breakthrough Seizure #Possible Stroke #History of Seizure disorder Patient presented after having 3 successive seizures, 1 at home and 2 and route per EMS, Versed was given in the field after the second seizure; patient was GCS 3 on arrival, GCS 13 on admission; left upper extremity was flaccid on arrival, CTA head and neck including head CT was negative for acute changes, previously established right temporal encephalomalacia. Patient has been compliant with Keppra 1000 mg PM, 500 mg AM. Plan: Neuro consulted Patient passed swallow eval Keppra 1500 mg BID Phenytoin 100 mg TID Lorazepam 2 mg IV push as needed every 30 minutes for breakthrough seizures Continuous EEG monitoring today MRI stroke protocol today Neurochecks q4h Aspiration and seizure precautions Permissive HTN for the first 24 hours, labetalol 10 mg IV push as needed for SBP at least 180, DBP at least 105 Echo ordered #Insulin-dependent type 2 diabetes #Status post left below-knee amputation #Diabetic nephropathy Patient on 26 units degludec, empagliflozin, semaglutide at home Patient's left below-knee amputation showed no abnormalities on physical exam A1c 8.0 today Plan: Carb consistent diet Insulin degludec 15 units and sliding scale #Previous CVA on Aspirin and Plavix Previous CVA in December 2024, currently taking aspirin and Plavix Patient has residual bladder and bowel incontinence, denied both on admission Plan: Aspirin 81 mg daily Plavix 75 mg daily #Asymptomatic UTI Admssion UA showed 7 WBCs, 1+ bacteria Patient denied dysuria, urgency, or frequency Plan: UCx pending #ALLYN on CKD Admission creatinine 2.0, baseline around 1.5; creantine 1.6 today Secondary to seizure vs decreased oral intake Plan: 1L NS in ED Avoid NSAIDs and nephrotoxic agents Renally dose medications #Severe HTN BP 185/80 on admission; BP today 127/56 Plan: Consider restarting home losartan after 24 hours if appropriate #Hypothyroidism Per patient history Plan: Levothyroxine 25 mcg daily #Hyperlipidemia Lipid panel- TG 154 Plan: Atorvastatin 80 mg nightly #Gout Per patient history Plan: Allopurinol 100 mg daily #Anxiety/Depression Per patient history Plan: Consider restarting home sertraline Disposition: Tele DVT prophylaxis: Lovenox 40 qday GI prophylaxis: Diet: carb consistent low Lines: PIV CODE STATUS: Limited This case was discussed with my attending physician, Dr. Harris, and senior resident, Dr. Betancur. Prosper Segundo, PGY1 Attending Provider Attestation/Addendum I have discussed and was present for the essential components of the history, physical examination, diagnosis, and treatment plan with the resident. I agree with the patient's care as documented by the resident and amended herein by me. Paulo Harris DO. Although this document has been carefully reviewed, there may still be some phonetic and other typographical errors. These errors are purely grammatical due to imperfections in the software program and should not be construed in any way to compromise the substance of the patient's medical care during this visit.
--- NOTE | 2025-10-09 16:24 | PC.PT ---
Patient is safe to stand pivot transfer to a bedside commode with 1 staff assist. RN made aware.
[2025-10-09] MEDS: LORazepam 2 MG/ML VIAL 1 MG IVP (19:07)
[2025-10-09] MEDS: ATORVASTATIN CALCIUM 20 MG TABLET 80 MG PO (20:29)
[2025-10-10] VITALS: BP 146/64; PULSE 63; PULSE 65; RESP 20; TEMP 36.1; O2SAT 93
--- NOTE | 2025-10-10 00:22 | PD.VPROG1 ---
Telemedicine visit statement This visit was conducted with the use of interactive audio and video telecommunications system that permits real time communication between the patient and the provider. Patient's verbal consent for virtual visit was obtained on 10/10/25 at 0022. Documentation for date of: 10/10/25 Subjective Subjective Interval history: Patient is in telemetry today. No seizures reported clinically. No new symptoms reported overnight. Virtual exam Vital Signs Temp Pulse Resp BP Pulse Ox O2 Del Method O2 Flow Rate 96.9 F 60 12 162/67 H 99 Room Air 12 10/09/25 20:00 10/09/25 20:00 10/09/25 20:00 10/09/25 16:00 10/09/25 20:00 10/09/25 20:00 10/07/25 21:07 Objective Labs 10/10/25 05:10 10/09/25 05:26 Labs: Laboratory Results - last 24 hr 10/09/25 05:26 WBC 8.1 RBC 3.03 L Hgb 9.1 L Hct 28.1 L MCV 93 MCH 30.0 MCHC 32.4 RDW Std Deviation 45.6 Plt Count 161 D Neut % (Auto) 60 Lymph % (Auto) 32 [place] % (Auto) 6 Eos % (Auto) 2 Baso % (Auto) 1 Neut # (Auto) 4.8 Lymph # (Auto) 2.6 [place] # (Auto) 0.5 Eos # (Auto) 0.2 Baso # (Auto) 0.1 Immature Gran # (Auto) 0.03 H Absolute Nucleated RBC 0.00 Immature Gran % 0 Nucleated RBC % 0 Sodium 145 Potassium 3.7 D Chloride 112 H Carbon Dioxide 23.2 Anion Gap 10 BUN 23 Creatinine 1.6 H D Estim Creat Clear Calc 40.0 L eGFR 35 L BUN/Creatinine Ratio 14 Glucose 152 H D Calculated Osmolality 295 Calcium 8.8 Corrected Calcium 9.4 Phosphorus 3.3 Magnesium 2.0 Total Bilirubin 0.2 L AST < 8 ALT 7 L Alkaline Phosphatase 78 D Total Protein 5.8 Albumin 3.3 L D Globulin 2.5 Albumin/Globulin Ratio 1.3 Assessment & Plan Assessment (1) Seizure: Status: Acute Assessment and plan: Follow-up with EEG and MRI brain Continue with the Keppra and Dilantin for now Continue with the seizure precautions.
[2025-10-10] MEDS: PROMETHAZINE/DM SYRUP 5 ML DOSE PO (00:43)
[2025-10-10 04:00] VITALS: BP 164/55; PULSE 56; PULSE 57; RESP 16; TEMP 36.1; O2SAT 92
[2025-10-10] MEDS: PHENYTOIN 100 MG CAPSR PO ×2 (05:22→13:48)
[2025-10-10] MEDS: SODIUM CHLORIDE 0.9% 1000 ML 1,000 ML 100 ML IV (05:22)
[2025-10-10] MEDS: LEVOTHYROXINE SODIUM 25 MCG TABLET PO (05:22)
[2025-10-10 06:21] LABS: Basophils # (Auto) 0.0 Thou/mm3 (0.0-0.2); Basophils % (Auto) 1 % (0-2.5); Eosinophils # (Auto) 0.2 Thou/mm3 (0.0-0.5); Eosinophils % (Auto) 3 % (0-10); Hematocrit 30.9 % (36.0-46.0); Hemoglobin 10.1 g/dL (12.0-16.0); Immature Granulocytes Auto 0.02 Thou/mm3 (0.00-0.00); Lymphocytes # (Auto) 2.4 Thou/mm3 (1.0-4.8); Lymphocytes % (Auto) 32 % (10-50); Mean Corpuscular HGB Conc 32.7 g/dl (31.0-37.0); Mean Corpuscular Hemoglobin 30.4 pg (25.0-35.0); Mean Corpuscular Volume 93 fL (80-100); Monocytes # (Auto) 0.4 Thou/mm3 (0.0-0.8); Monocytes % (Auto) 5 % (0-12); Neutrophils # (Auto) 4.6 Thou/mm3 (1.8-7.7); Neutrophils % (Auto) 60 % (37-80); Nucleated Red Blood Cell # 0.00 Thou/mm3 (0.00-0.00); Nucleated Red Blood Cell % 0 /100 WBC (0); Platelet Count 190 Thou/mm3 (140-440); RDW Standard Deviation 45.3 fL (36.4-46.3); Red Blood Count 3.32 Miln/mm3 (4.00-5.20); White Blood Count 7.6 Thou/mm3 (3.6-11.0)
[2025-10-10 06:53] LABS: Alanine Aminotransferase < 7 U/L (10-49); Albumin, Serum 3.6 gm/dL (3.4-4.8); Albumin/Globulin Ratio 1.4 (1.2-2.2); Alkaline Phosphatase 90 U/L (46-116); Anion Gap 12 (7-16); Aspartate Amino Transferase 11 U/L (0-34); BUN/Creatinine Ratio 11 Ratio (12-20); Bilirubin,Total 0.2 mg/dL (0.3-1.2); Blood Urea Nitrogen 16 mg/dL (9-23); Calcium 8.6 mg/dL (8.3-10.6); Calcium (Corrected) 8.9 mg/dL (8.5-10.1); Carbon Dioxide 22.5 mMol/L (20.0-31.0); Chloride 111 mMol/L (98-107); Creatinine (Component) 1.4 mg/dL (0.6-1.3); Estimated Creatinine Clearance 46.1 mL/min (>60); Globulin 2.6 gm/dL (2.3-3.5); Glucose 131 mg/dL (74-106); Magnesium 1.6 mg/dL (1.6-2.6); Osmolality,Calculated 291 (275-295); Phosphorous 3.6 mg/dL (2.4-5.1); Potassium 3.7 mMol/L (3.4-5.1); Sodium 145 mMol/L (136-145); Total Protein 6.2 gm/dL (5.7-8.2); eGFR 41 See Note
[2025-10-10 08:00] VITALS: BP 171/60; PULSE 56; PULSE 57; RESP 15; TEMP 36.3; O2SAT 91
[2025-10-10] MEDS: ENOXAPARIN SOD INJ 40 MG/0.4 ML SYRINGE SC (08:58)
[2025-10-10] MEDS: CLOPIDOGREL BISULFATE 75 MG TABLET PO (08:58)
[2025-10-10] MEDS: ASPIRIN EC 81 MG TABEC PO (08:58)
[2025-10-10] MEDS: INSULIN DEGLUDEC 5 UNIT/0.05 ML (PER 5 UNITS) 15 UNIT SC (08:58)
--- NOTE | 2025-10-10 09:15 | PD.RESPRO ---
Documentation for date of: 10/10/25 Exam Vital Signs Temp Pulse Resp BP Pulse Ox O2 Del Method O2 Flow Rate 97.4 F 56 L 15 171/60 H 91 L Room Air 12 10/10/25 08:00 10/10/25 08:00 10/10/25 08:00 10/10/25 08:00 10/10/25 08:00 10/10/25 08:00 10/07/25 21:07 Objective Labs 10/10/25 05:10 10/10/25 05:10 Labs: Laboratory Results - last 24 hr 10/10/25 05:10 WBC 7.6 RBC 3.32 L Hgb 10.1 L Hct 30.9 L MCV 93 MCH 30.4 MCHC 32.7 RDW Std Deviation 45.3 Plt Count 190 Neut % (Auto) 60 Lymph % (Auto) 32 [place] % (Auto) 5 Eos % (Auto) 3 Baso % (Auto) 1 Neut # (Auto) 4.6 Lymph # (Auto) 2.4 [place] # (Auto) 0.4 Eos # (Auto) 0.2 Baso # (Auto) 0.0 Immature Gran # (Auto) 0.02 H Absolute Nucleated RBC 0.00 Immature Gran % 0 Nucleated RBC % 0 Sodium 145 Potassium 3.7 Chloride 111 H Carbon Dioxide 22.5 Anion Gap 12 BUN 16 Creatinine 1.4 H Estim Creat Clear Calc 46.1 L eGFR 41 L BUN/Creatinine Ratio 11 L Glucose 131 H Calculated Osmolality 291 Calcium 8.6 Corrected Calcium 8.9 Phosphorus 3.6 Magnesium 1.6 Total Bilirubin 0.2 L AST 11 ALT < 7 L Alkaline Phosphatase 90 Total Protein 6.2 Albumin 3.6 Globulin 2.6 Albumin/Globulin Ratio 1.4 Quality Measures Quality Measures stroke Suspected type of Stroke: Unknown at this time Last known well (date): 10/07/25 Tenecteplase given: Reason(s) Tenecteplase not given: Siezure at onset with post-ictal neuro impairment not given Assessment & Plan Assessment Current Active Medications: Generic Name Dose Route Start Last Admin Trade Name Freq PRN Reason Stop Dose Admin Acetaminophen 650 mg 10/08/25 00:04 10/09/25 07:21 Acetaminophen 325 Mg Tablet PO 11/07/25 00:03 650 mg Q6H PRN Administration Fever >100.4 Allopurinol 100 mg 10/08/25 09:00 10/10/25 08:58 Allopurinol 100 Mg Tablet PO 11/07/25 08:59 100 mg QDAY ERIKA Administration Artificial Tears 2 drop 10/09/25 11:01 Artificial Tears 225 Drop/15 Ml Btl BOTH EYES 11/08/25 11:00 Q2H PRN TO KEEP EYES MOIST Aspirin 81 mg 10/08/25 09:00 10/10/25 08:58 Aspirin Ec 81 Mg Tabec PO 11/07/25 08:59 81 mg QDAY ERIKA Administration Atorvastatin Calcium 80 mg 10/08/25 21:00 10/09/25 20:29 Atorvastatin Calcium 20 Mg Tablet PO 11/07/25 20:59 80 mg HS ERIKA Administration Clopidogrel Bisulfate 75 mg 10/08/25 09:00 10/10/25 08:58 Clopidogrel Bisulfate 75 Mg Tablet PO 11/07/25 08:59 75 mg QDAY ERIKA Administration Dextrose 25 ml 10/08/25 00:13 Dextrose 50%-Water Inj 50 Ml Syringe IV 11/07/25 00:12 Q15MIN PRN BG 50-70 responsive npo pt Dextrose 50 ml 10/08/25 00:13 Dextrose 50%-Water Inj 50 Ml Syringe IV 11/07/25 00:12 Q15MIN PRN BG <50 OR BG <70 & pt unresponsive Enoxaparin Sodium 40 mg 10/08/25 09:00 10/10/25 08:58 Enoxaparin Sod Inj 40 Mg/0.4 Ml Syringe SC 10/22/25 08:59 40 mg QDAY ERIKA Administration Glucagon 1 mg 10/08/25 00:13 Glucagon Inj 1 Mg Vial IM Q15MIN PRN BG <70, and no IV access Sodium Chloride 1,000 mls @ 100 mls/hr 10/07/25 21:15 10/10/25 05:22 Ns IV 11/06/25 21:14 100 mls/hr Q10H ERIKA Administration Insulin Degludec 15 unit 10/08/25 07:45 10/10/25 08:58 Insulin Degludec 5 Unit/0.05 Ml (Per 5 Units) SC 11/07/25 07:44 15 unit QDAY ERIKA Administration Insulin Human Lispro 0 unit 10/08/25 08:00 10/10/25 08:51 Insulin Lispro (Admelog) 1 Unit/0.01 Ml Unit SC 11/07/25 07:59 Not Given ACHS ERIKA Protocol Labetalol HCl 10 mg 10/07/25 21:03 Labetalol Inj 5 Mg/Ml Vial 4 Ml IVP Q15M PRN hypertension Levetiracetam 1,500 mg 10/08/25 09:00 10/10/25 08:57 Levetiracetam 250 Mg Tablet PO 11/07/25 08:59 1,500 mg BID ERIKA Administration Levothyroxine Sodium 25 mcg 10/08/25 06:00 10/10/25 05:22 Levothyroxine Sodium 25 Mcg Tablet PO 11/07/25 05:59 25 mcg ACBR ERIKA Administration Lorazepam 2 mg 10/08/25 01:52 Lorazepam 2 Mg/Ml Vial IVP 10/13/25 01:59 Q30MIN PRN Breakthrough seizure Ondansetron HCl 4 mg 10/07/25 21:03 Ondansetron Inj 2 Mg/Ml Inj 2 Ml IVP 11/06/25 21:02 Q4HR PRN NAUSEA OR VOMITING Phenytoin 100 mg 10/08/25 06:00 10/10/25 05:22 Phenytoin 100 Mg Capsr PO 11/07/25 05:59 100 mg TID ERIKA Administration
--- NOTE | 2025-10-10 10:00 | ESDS_ITS ---
<Statement entered by Bekah Gregory DO - 10/10/25 19:56> I, Bekah Gregory DO, attest that I was physically present for the alvarado portions of the service and evaluated the patient with the resident and I reviewed and discussed the case with the resident and agree with the resident's findings and plans of care as documented above Planned Discharge Date 10/10/25 DS: Providers Provider Date of admission: 10/08/25 00:25 Primary care physician: Physician No Primary/Family Admitting Provider: Dominick Nickerson MD Attending Provider on Admission: Brandyn Harris DO Consults: 10/07/25 21:04 Consult to Neurology / Tele-Neurology Routine Comment: Consulting Provider: [facility] 10/08/25 00:23 Consult to Neurology / Tele-Neurology Routine Comment: Having seizures despite medication compliance. Consulting Provider: Shadi Muller 10/08/25 01:51 Referral Physical Therapy Routine Comment: Physician Instructions: 10/08/25 06:24 Referral Infection Control Routine Comment: Reason for Infection Control Referral: Readmitted within 30 days Attending Provider on DC: Bekah Gregory DO Discharging Provider: Bekah Gregory DO DS: Diagnosis Problem List Completed Was Problem List Reviewed/Reconciled?: Yes Hospital Course Hospital Course Hospital course: Hospital Course: Patient is 70 yo F with PMH of DM with left BKA, hypothyroidism, CVA, seizure disorder, who presented to the ED on 10/07 with chief complaint of breakthrough seizures despite being compliant with regimen. Admitted on 10/08 for monitoring with EEG and adjustment to antiepileptic regimen. On 10/09, got continuous EEG and MRI. MRI MRI (10/09/2025) Old infarct right temporal lobe w/ no acute findings. Echo noted diastolic dysfunction 50-55%. Neurology consulted, new dose of Keppra 1500 mg twice daily and Phyenytoin 100 mg PO three times daily. Please follow up with neurology. Discharge Instructions: Instructions: -Please start new dose of Keppra 1500 mg twice daily -Phenytoin 100 mg three times daily -Please follow up with neurology, Dr. Muller, within the next two weeks for follow up on seizures. -Please follow up with your primary care provider within one week of discharge -If your symptoms worsen,please seek immediate medical attention and return to your nearest emergency room -If you do not have a primary care provider, you may follow up at the [facility] at [facility] [address], [place] [address], Problem List: #Breakthrough Seizure # Stroke ruled out #History of Seizure disorder #Insulin-dependent type 2 diabetes #Status post left below-knee amputation #Diabetic nephropathy #Previous CVA on Aspirin and Plavix #Asymptomatic UTI #ALLYN on CKD #Severe HTN #Hypothyroidism #Hyperlipidemia #Gout #Anxiety/Depression This case was discussed with my attending physician, Dr. Gregory, and senior resident, Dr. Ortiz. Prosper Segundo, PGY1 Senior Resident Attestation: I have discussed the case with supervising physician and international logistics manager physician involved in the care of patient. I personally saw and examined patient and discussed the assessment and plan with the entire medical team, including attending. I agree with assessment and plan as documented above. - The patient's plan was discussed with attending Dr. Colt Ortiz MD PGY2 Internal Medicine Status at Discharge Functional status at discharge: independent ambulation Overall status at discharge: patient is progressing back to baseline Time Spent with Patient Time attestation: Total time spent providing and/or coordinating discharge services: Time spent: Greater than 30 minutes Exam Vital Signs Temp Pulse Resp BP Pulse Ox O2 Del Method O2 Flow Rate 97.4 F 56 L 15 171/60 H 91 L Room Air 10/10/25 08:00 10/10/25 08:00 10/10/25 08:00 10/10/25 08:00 10/10/25 08:00 10/10/25 08:00 10/07/25 21:07 Narrative Exam General: A/O x3, no acute distress, well-nourished, well-developed Eyes: PERRL, EOMI. Anicteric, vision grossly intact. Ears: No ear pain, no ear discharge, Hearing grossly intact. Nose: No nasal discharge. Mouth/Throat: Moist mucous membranes, no redness, no lesions. Neck: Neck supple, non-tender, no cervical lymphadenopathy. Lungs: Clear LISA to auscultation and percussion, No accessory muscle use. Cardio: Normal S1/S2, regular rhythm, no murmurs, no JVD or carotid bruits. Abdomen: Soft, non-tender, no palpable masses, peristalsis present, no guarding or rebound. Extremities: no peripheral edema , non-tender, peripheral pulses present, L BKA noted Skin: No rashes, no lesions, warm to touch. Neuro: No focal neurological deficits. Psych: Cooperative, appropriate mood and effect. Discharge Plan Plan Patient Disposition: HOME (Self Care) Patient condition on transfer: Stable Care Plan Goals: Instructions: -Please start new dose of Keppra 1500 mg twice daily -Phenytoin 100 mg three times daily -Stop Jardiance given repeat history of UTIs -Please follow up with neurology, Dr. Muller, within the next two weeks for follow up on seizures. -Please follow up with your primary care provider within one week of discharge -If your symptoms worsen,please seek immediate medical attention and return to your nearest emergency room -If you do not have a primary care provider, you may follow up at the [facility] at [address] [place] [address] [address], [place] [address], Prescriptions/Referrals Prescriptions/Med Rec: New phenytoin sodium extended 100 mg Capsule 100 mg PO TID 30 Days Qty: 90 0RF levetiracetam [Keppra] 750 mg tablet 1,500 mg PO BID 30 Days Qty: 120 0RF Continued trazodone 100 mg tablet 100 mg PO HS insulin degludec [Tresiba FlexTouch U-100] 100 unit/mL (3 mL) insulin pen 26 unit subcut .qhs Tradjenta 5 mg tablet 5 mg PO QDAY Patient Comments: TAKE 1 TABLET BY MOUTH EVERY DAY aspirin 81 mg capsule 81 mg PO QDAY clopidogrel [Plavix] 75 mg tablet 75 mg PO QDAY linaclotide 145 mcg capsule 145 mcg PO QAM Patient Comments: occasionally takes it sertraline 100 mg tablet 200 mg PO QAM Patient Comments: TAKE 2 TABLETS BY MOUTH EVERY DAY pantoprazole 40 mg tablet,delayed release (DR/EC) 40 mg PO QDAY Patient Comments: TAKE 1 TABLET BY MOUTH EVERY DAY calcitriol 0.25 mcg capsule 0.25 mcg PO DAILY Patient Comments: TAKE 1 CAPSULE BY MOUTH EVERY DAY levothyroxine 25 mcg capsule 25 mcg PO QDAY allopurinol 100 mg tablet 100 mg PO DAILY losartan 50 mg tablet 50 mg PO .qhs omega-3 fatty acids Capsule 600 mg PO QDAY pioglitazone 30 mg tablet 30 mg PO QDAY sertraline 50 mg tablet 50 mg PO .qhs Patient Comments: TAKE 1 TABLET BY MOUTH EVERY DAY. TAKE WITH 200MG DAILY FOR TOTAL OF 250MG/DAY atorvastatin 80 mg tablet 80 mg PO .qhs Patient Comments: TAKE 1 TABLET BY MOUTH EVERY DAY ferrous sulfate [Feosol] 325 mg (65 mg iron) tablet 325 mg PO BID Discontinued Jardiance 10 mg tablet 10 mg PO QDAY Patient Comments: from sister, will clarify with pcp No Action berberine-herbal drugs 1 cap PO DAILY Referrals: No Primary/Family,Physician [Primary Care Provider] Shadi Muller MD [Physician, Neurology] Patient/Caregiver Discharge Instructions Education Materials: Anatomy of the Brain, ED Seizure, Recurrent (Adult) Print Language: [place] Stand Alone Forms: Maddy Award Info., Patient Portal Info Letter Discharge Order Discharge Orders: Discharge (Routine); Ordered 10/10/25 Ordered By: Angelika Ortiz Quality Discharge Quality Measures none
[2025-10-10 11:58] VITALS: BP 147/79; PULSE 74; RESP 28; TEMP 36.1; O2SAT 97
[2025-10-10 12:00] VITALS: PULSE 69
--- NOTE | 2025-10-10 14:13 | PC.PT ---
Patient will be D/C from PT services 11/13 patient is now back to her baseline and is xI with bed mobility and transfers. Patient is safe to stand pivot transfer to the bedside commode with no assist. RN made aware.
[2025-10-10 15:54] VITALS: BP 153/64; PULSE 70; RESP 20; TEMP 36.5; O2SAT 98
== END 2025-10-10 15:45 | disposition home or self-care (01) | DRG 101 ==
LOC: SERX 23:13 → SERHOLD 10-08 00:27 → S2NX 10-08 03:56
PROVIDERS: Admitting Provider Student in an Organized Health Care Education/Training Program; Emergency Provider Emergency Medicine; Visit Provider Student in an Organized Health Care Education/Training Program
DX: G40.201 Localization-related (focal) (partial) symptomatic epilepsy and epileptic syndromes with complex partial seizures, not intractable, with status epilepticus (principal); N39.0 Urinary tract infection, site not specified; N17.9 Acute kidney failure, unspecified; E11.22 Type 2 diabetes mellitus with diabetic chronic kidney disease; N18.9 Chronic kidney disease, unspecified; E03.9 Hypothyroidism, unspecified; I12.9 Hypertensive chronic kidney disease with stage 1 through stage 4 chronic kidney disease, or unspecified chronic kidney disease; E78.5 Hyperlipidemia, unspecified; M10.9 Gout, unspecified; D63.1 Anemia in chronic kidney disease; F32.A Depression, unspecified; F41.9 Anxiety disorder, unspecified; Z79.4 Long term (current) use of insulin; Z89.512 Acquired absence of left leg below knee; E61.1 Iron deficiency; Z79.02 Long term (current) use of antithrombotics/antiplatelets; Z79.82 Long term (current) use of aspirin; Z79.84 Long term (current) use of oral hypoglycemic drugs; Z79.890 Hormone replacement therapy; Z79.899 Other long term (current) drug therapy; Z90.710 Acquired absence of both cervix and uterus
CPT/HCPCS: 36415; 51702; 70450; 70496; 70498; 70544; 71045; 80053; 80061; 80307; 80320; 81001; 83036; 83605; 83735; 83880; 84100; 84484; 84703; 85025; 85610; 85730; 87077; 87081; 87086; 87186; 93005; 93306; 95813; 96361; 96365; 96375; 97161; 99285; A4314; A4649; J1165; J1650; J1815; J1953; J2060; J3475; J7030; J7050; Q9967; A9270; G0480